=== PATIENT | female | born 1960 | race Caucasian/White ===

== ENCOUNTER 2019-10-02 16:02 | Emergency (ER) | payer OTHER, SELFPAY ==
[2019-10-02 16:14] VITALS: BP 103/70; PULSE 89; RESP 16; TEMP 36.6; O2SAT 98
--- NOTE | 2019-10-02 16:29 | ED.GENADULT ---
HPI - General Adult General Chief complaint: Upper Respiratory Infection Stated complaint: Right Ear Pain Time Seen by Provider: 10/02/19 16:29 Source: patient and RN notes reviewed Mode of arrival: ambulatory Limitations: no limitations History of Present Illness HPI narrative: 59-year-old presents with upper respiratory infection, rhinorrhea, some facial congestion, facial pressure, and RT ear pain for the past 3 days. He did pack, sweet oil, old eardrops, peroxide, Tylenol (last on 10/01/19/ @17:00), and Mucinex (last this morning at 08:00) without relief. No facial swelling. Dry cough and intermittent productive cough (green-yellow phlegm). Nasal congestion and rhinorrhea. Denies sore throat. No high fevers, drooling, neck or throat swelling. No voice change. Intermittent vomiting episodes with coughing during eating and bringing up thick yellow mucus. No nausea or abdominal pain. Tolerating liquids well. Denies chills, dyspnea, difficulty swallowing, jaw pain, dental pain, foreign body sensation, and rash. Denies swimming or getting water into ear. Denies ear trauma or nasal drainage. Denies trouble hearing. Denies tinnitus or dizziness. LMP Hysterectomy 2000. The patient reports she have not been diagnosed with COVID-19. 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 The patient reports she is not waiting for the results of a COVID-19 lab test. The patient reports she do not have fever, chills, weakness, fatigue, myalgia, or facial swelling. The patient reports she has new cough. Denies shortness of breath or chest pain. The patient reports she do not have any sore throat, nausea, vomiting, abdominal pain, and diarrhea. Tolerating po intake well. Denies recent traveling. Denies concerns for COVID-19 or exposures been home with limited outdoor exposure except for essential household needs, work, and return home. At this time, patient is not suspected of having COVID-19. Some parts of this dictation were generated by voice recognition software and may contain typographical and/or grammatical inaccuracies. Related Data Home Medications Medication Instructions Recorded Confirmed bupropion HCl [Wellbutrin XL] 150 mg PO QAM 10/02/19 10/02/19 bupropion HCl [Wellbutrin XL] 300 mg PO QAM 10/02/19 10/02/19 escitalopram oxalate [Lexapro] 20 mg PO DAILY 10/02/19 10/02/19 lamotrigine [Lamictal XR] 100 mg PO DAILY 10/02/19 10/02/19 lamotrigine [Lamictal XR] 300 mg PO DAILY 10/02/19 10/02/19 Allergies Allergy/AdvReac Type Severity Reaction Status Date / Time No Known Allergies Allergy Unknown Verified 10/02/19 16:25 Review of Systems Review of Systems: Narrative: CONSTITUTIONAL: Denies fever, chills, sweats. EYES: Denies visual changes, redness, discharge. ENT: Complains of rhinorrhea, congestion, facial congestion and pressure, RT otalgia. Denies sore throat. CARDIOVASCULAR: Denies chest pain, palpitations, edema. RESPIRATORY: Denies dyspnea, wheezing. Complains of dry cough/intermittent productive cough. GASTROINTESTINAL: Denies abdominal pain, nausea, vomiting, diarrhea. GENITOURINARY: Denies dysuria, hematuria, abnormal discharge. SKIN: Denies rash or itching. MUSCULOSKELETAL: Denies acute back pain, joint pain, or myalgia. NEUROLOGIC: Denies numbness, or focal weakness. PSYCHIATRIC: Denies anxiety or depression. All other systems reviewed & are unremarkable except as noted in HPI and below. [facility] Past Medical History Medical History (Updated 10/02/19 @ 17:11 by JUDY Auguste) Ankle fracture, right Bipolar disorder Surgical History Surgical History (Updated 10/02/19 @ 17:15 by JUDY Auguste) History of adenoidectomy History of ankle surgery RT ankle History of cholecystectomy History of tonsillectomy Social History Social History (Updated 10/02/19 @ 17:17 by JUDY Auguste) Smoking status: Never smoker Occupation/Education: occupation Gender identity (
== END 2019-10-02 16:50 | disposition home or self-care (01) ==
PROVIDERS: Emergency Provider Nurse Practitioner Family; PCP Internal Medicine
DX: H65.192 Other acute nonsuppurative otitis media, left ear (principal); J01.00 Acute maxillary sinusitis, unspecified
CPT/HCPCS: 99213; G0463

== ENCOUNTER 2019-11-04 12:30 | Emergency (ER) | payer OTHER, SELFPAY ==
[2019-11-04 12:36] VITALS: BP 111/73; PULSE 81; RESP 14; TEMP 36.3; O2SAT 97
--- NOTE | 2019-11-04 12:39 | ED.EAR ---
HPI - Ear Problem General Chief complaint: Ear Stated complaint: right ear pain/pressure Time Seen by Provider: 11/04/19 12:39 Source: patient and RN notes reviewed History of Present Illness HPI Narrative: Patient is a 59-year-old female who presents the urgent care with complaints of right ear pain and pressure. Patient states that it feels full . States is been ongoing for approximately 1 month. Patient was seen at the facility 1 month ago and was placed on steroids, Flonase and Claritin and also was tested for COVID at that time. Patient's COVID test was negative. Patient states that the symptoms are still there and now the pain is radiating down the right side of her neck. Patient is also incorporated Tylenol and Mucinex without any relief. Denies of any other upper respiratory symptoms. Denies of any fever. No other acute complaints. No acute distress noted. Patient read the plan of care. Related Data Home Medications Medication Instructions Recorded Confirmed bupropion HCl [Wellbutrin XL] 150 mg PO QAM 10/02/19 10/02/19 bupropion HCl [Wellbutrin XL] 300 mg PO QAM 10/02/19 10/02/19 escitalopram oxalate [Lexapro] 20 mg PO DAILY 10/02/19 10/02/19 lamotrigine [Lamictal XR] 100 mg PO DAILY 10/02/19 10/02/19 lamotrigine [Lamictal XR] 300 mg PO DAILY 10/02/19 10/02/19 Allergies Allergy/AdvReac Type Severity Reaction Status Date / Time No Known Allergies Allergy Unknown Verified 11/04/19 12:44 Review of Systems Review of Systems: Narrative: CONSTITUTIONAL: Denies fever, chills, or sweats. EYES: Denies visual changes, redness, or discharge. ENT: Reports of right otalgia CARDIOVASCULAR: Denies chest pain, palpitations, or edema. RESPIRATORY: Denies cough or dyspnea. GASTROINTESTINAL: Denies abdominal pain, nausea, vomiting, or diarrhea. GENITOURINARY: Denies dysuria or hematuria. SKIN: Denies rash or itching. MUSCULOSKELETAL: Denies back pain, joint pain, or myalgia. NEUROLOGIC: Denies headache, numbness, or weakness. All other systems reviewed are negative, except as documented in HPI. [facility], [facility] Past Medical History Medical History (Updated 11/04/19 @ 12:49 by JUDY Sargent) Ankle fracture, right Bipolar disorder Surgical History Surgical History (Updated 10/02/19 @ 17:15 by JUDY Auguste) History of adenoidectomy History of ankle surgery RT ankle History of cholecystectomy History of tonsillectomy Social History Social History (Updated 10/02/19 @ 17:17 by JUDY Auguste) Smoking status: Never smoker Gender identity (if verbalized by the patient): Female Comments At the time of my signature, I reviewed and agree with the nursing past medical, surgical, social, and family history. There is no relevant family history pertinent to the patient complaint. Exam Narrative: Exam Narrative: GENERAL: This is a well-nourished, well-developed patient, in no apparent distress. HEAD: normocephalic, atraumatic. EYES: PERRL. Sclera clear/white. Vision is grossly intact. EARS: External ears normal, auditory canals clear and without drainage, TMs normal without perforation. Hearing grossly intact. NOSE: External nose normal with no obvious nasal discharge, nares without redness, no rhinorrhea. THROAT: Mucous membranes moist NECK: Neck supple SKIN: warm, intact with no suspicious lesions or rash, good texture and turgor. NEURO: awake, alert, and oriented to person, place and time. There were no obvious focal neurologic abnormalities. EXTREMITIES: No clubbing, cyanosis, or edema. Course Vital Signs Vital signs: Vital Signs Temperature 97.4 F L 11/04/19 12:36 Pulse Rate 81 11/04/19 12:36 Respiratory Rate 14 11/04/19 12:36 Blood Pressure 111/73 11/04/19 12:36 Pulse Oximetry 97 11/04/19 12:36 Temperature 97.4 F L 11/04/19 12:36 Pulse Rate 81 11/04/19 12:36 Respiratory Rate 14 11/04/19 12:36 Blood Pressure 111/73 11/04/19 12:36 Pulse Oximetry 97
== END 2019-11-04 12:57 | disposition home or self-care (01) ==
PROVIDERS: Emergency Provider Nurse Practitioner Family; PCP Internal Medicine
DX: H92.01 Otalgia, right ear (principal); F31.9 Bipolar disorder, unspecified
CPT/HCPCS: 99211; G0463

== ENCOUNTER 2020-04-03 07:31 | Outpatient (CLI) | payer OTHER, SELFPAY ==
--- NOTE | ~2020-04-03 | MM_ITS ---
EXAMINATION: MM screening jeanine BI w lisa HISTORY: Screening mammogram TECHNIQUE: Craniocaudal and mediolateral oblique 3-D tomosynthesis images were obtained and synthetic 2-D images were generated. CAD analysis was submitted and interpreted. COMPARISON: No prior mammogram is available for comparison at this institution. BREAST PARENCHYMAL COMPOSITION: There are scattered areas of fibroglandular density. FINDINGS: Benign-appearing intramammary lymph nodes are noted in the upper outer quadrant of the left breast. There is no evidence of suspicious mass, calcification, or architectural distortion to sugge st malignancy in either breast. IMPRESSION: 1. No mammographic evidence of malignancy. 2. Recommend routine screening mammography in one year. BI-RADS Category 2: Benign finding(s). Reviewed, dictated and finalized at location A. TER MECHANIC
== END 2020-04-03 07:32 | disposition home or self-care (01) ==
LOC: ANHIMG 07:35
PROVIDERS: PCP Internal Medicine; Visit Provider Internal Medicine
DX: Z12.31 Encounter for screening mammogram for malignant neoplasm of breast (principal)
CPT/HCPCS: 77063; 77067

== ENCOUNTER 2020-04-27 08:24 | Outpatient (CLI) | payer OTHER, SELFPAY ==
--- NOTE | ~2020-04-27 | XR_ITS ---
EXAMINATION: XR barium swallow modified EXAM DATE: 04/27/2020 09:08 INDICATION: Dysphagia. TECHNIQUE: Modified barium esophagram was performed by myself to administered fluoroscopy, in conjun ction with speech pathologist who administered barium in varying consistencies as per speech patholog ist documentation. This was recorded on tape. The DAP for this procedure was 0.7 Gycm2. FINDINGS: Oral stage: Adequate function. Pharyngeal phase: Adequate function. Laryngeal penetration: Trace, uncontrolled thin liquids, ejected. Aspiration: None. Laryngeal sensitivity: Present. IMPRESSION: Patient tolerated oral feedings in the upright position. Please refer to speech patholo gist findings and specific feeding recommendations. Reviewed, dictated and finalized at location A. ER LEVELER IMPRESSION: Patient tolerated oral feedings in the upright position. Please r efer to speech pathologist findings and specific feeding recommendations.
--- NOTE | 2020-04-27 09:22 | STOPEVAL ---
MODIFIED BARIUM SWALLOW EVALUATION: Thank you for referring Cynthia Lund to [facility].? T Attending Provider: Candida Balderrama Therapy Assessment Status Assessment Status Assessment Status Evaluation Outpatient Past Medical History Past Medical History Source of Past Medical History Patient Respiratory History Hx Chronic Obstructive Pulmonary Disease Yes (COPD) Hx Emphysema Yes Gastrointestinal History Hx Cholecystectomy Yes Musculoskeletal History Hx Fractures Yes: RT ANKLE Hx Orthopedic Surgery Yes: RT ROTATOR CUFF, FX RT ANKLE WITH PINS Hx Spinal Surgery Yes: CERVICAL FUSION HEENT History Hx Tonsillectomy Yes: ADENOIDECTOMY Reproductive History Hx Hysterectomy Yes Psychosocial History Hx Bipolar Disorder Yes Prior Level of Function Prior Swallow Level Prior Intake Method Oral Prior Diet Regular (Level 7 Diet) Prior Liquid Consistency Thin (Level 0 Diet) Pain Assessment Timing of Pain Assessment Timing of Pain Assessment Assessment Self Report Self Report Pain Level 0 Pain Score Pain Score 0: Self Report Modified Barium Swallow Evaluation Recent Swallowing History Reports Dysphagia Yes: foods get caught & I cough History of Dysphagia No Duration of Dysphagia couple of years Other Factors Impacting Dysphagia Head/Neck Surgery History of Pneumonia No Reported Difficult Consistencies Solids Intake Method Prior to Swallow Oral Evaluation Diet Prior to Swallow Evaluation Regular, Level 7 Liquid Consistency Prior to Swallow Thin (0) Evaluation Consistency Solid Consistency Method of Presentation Spoon Oral Preparatory Symptoms None Oral Phase Symptoms None Pharyngeal Phase Symptoms None Severity of Vallecular Residue None - 0% No Residue Severity of Pyriform Sinus Residue None - 0% No Residue 8 Point Laryngeal Penetration-Aspiration Material Does Not Enter Airway Scale Cervical/Esophageal Symptoms None Mixed Consistency Method of Presentation Spoon Oral Preparatory Symptoms None Oral Phase Symptoms None Pharyngeal Phase Symptoms None Severity of Vallecular Residue None - 0% No Residue Severity of Pyriform Sinus Residue None - 0% No Residue 8 Point Laryngeal Penetration-Aspiration Material Does Not Enter Airway Scale Cervical/Esophageal Symptoms None Pureed Consistency Method of Presentation Spoon Oral Preparatory Symptoms None Oral Phase Symptoms None Pharyngeal Phase Symptoms None Severity of Vallecular Residue None - 0% No Residue
== END 2020-04-27 08:25 | disposition home or self-care (01) ==
PROVIDERS: PCP Internal Medicine
DX: R13.10 Dysphagia, unspecified (principal)
CPT/HCPCS: 92611

== ENCOUNTER 2021-10-24 10:29 | Emergency (ER) | payer OTHER, SELFPAY ==
[2021-10-24 10:36] VITALS: BP 123/71; PULSE 83; RESP 14; TEMP 36.4; O2SAT 98
--- NOTE | 2021-10-24 10:55 | ED.EAR ---
HPI - Ear Problem General Chief complaint: Ear Stated complaint: Right Ear Pain Time Seen by Provider: 10/24/21 10:40 Source: patient and RN notes reviewed History of Present Illness HPI Narrative: Patient is a 7-year-old female who presents the urgent care with complaints of right ear pain. Patient states that she has been taking Flonase, using sweet oil, and peroxide in the ear. Patient states that it started on Sunday and she had a bout of dizziness. Patient denies any headaches or nausea. No other acute complaints. No acute distress noted. Patient aware of the plan of care. Some parts of this dictation were generated by voice recognition software and may contain typographical and/or grammatical inaccuracies. Related Data Home Medications Medication Instructions Recorded Confirmed bupropion HCl 150 mg 24 hr tablet, 150 mg PO QAM 10/02/19 10/24/21 extended release (Wellbutrin XL) bupropion HCl 300 mg 24 hr tablet, 300 mg PO QAM 10/02/19 10/24/21 extended release (Wellbutrin XL) escitalopram oxalate 20 mg tablet 20 mg PO DAILY 10/02/19 10/24/21 (Lexapro) lamotrigine 100 mg tablet,extended 100 mg PO DAILY 10/02/19 10/24/21 release 24 hr (Lamictal XR) lamotrigine 300 mg tablet,extended 300 mg PO DAILY 10/02/19 10/24/21 release 24 hr (Lamictal XR) famotidine 20 mg tablet 20 mg PO DAILY 10/24/21 10/24/21 lorazepam 1 mg tablet 1 mg PO TID PRN Anxiety 10/24/21 10/24/21 metoclopramide HCl 10 mg tablet mg 10/24/21 Allergies Allergy/AdvReac Type Severity Reaction Status Date / Time No Known Allergies Allergy Unknown Verified 10/24/21 10:39 Review of Systems Review of Systems: CONSTITUTIONAL: Denies fever, chills, or sweats. EYES: Denies visual changes, redness, or discharge. ENT: Denies rhinorrhea, congestion, sore throat. Reports right otalgia CARDIOVASCULAR: Denies chest pain, palpitations, or edema. RESPIRATORY: Denies cough or dyspnea. GASTROINTESTINAL: Denies abdominal pain, nausea, vomiting, or diarrhea. GENITOURINARY: Denies dysuria or hematuria. SKIN: Denies rash or itching. MUSCULOSKELETAL: Denies back pain, joint pain, or myalgia. NEUROLOGIC: Denies headache, numbness, or weakness. All other systems reviewed are negative, except as documented in HPI. [facility] Past Medical History Medical History (Updated 10/24/21 @ 10:57 by JUDY Sargent) Ankle fracture, right Bipolar disorder Surgical History Surgical History (Updated 10/02/19 @ 17:15 by JUDY Auguste) History of adenoidectomy History of ankle surgery RT ankle History of cholecystectomy History of tonsillectomy Social History Social History (Updated 10/02/19 @ 17:17 by JUDY Auguste) Smoking status: Never smoker Gender identity (if verbalized by the patient): Female Comments At the time of my signature, I reviewed and agree with the nursing past medical, surgical, social, and family history. There is no relevant family history pertinent to the patient complaint. Exam Narrative: GENERAL: This is a well-nourished, well-developed patient, in no apparent distress. HEAD: normocephalic, atraumatic. EYES: PERRL. Sclera clear/white. Vision is grossly intact. EARS: External ears normal, auditory canals clear and without drainage, TMs normal without perforation. Hearing grossly intact. NOSE: External nose normal with no obvious nasal discharge, nares without redness, no rhinorrhea. THROAT: Mucous membranes moist, posterior pharynx clear. Mild postnasal drainage. NECK: Neck supple CARDIOVASCULAR: Regular rate and rhythm without murmurs, gallops, or rubs. GASTROINTESTINAL: Abdomen soft, non-tender, nondistended. Bowel sounds are active. No hepato-splenomegaly, or palpable masses. No guarding. SKIN: warm, intact with no suspicious lesions or rash, good texture and turgor. NEURO: awake, alert, and oriented to person, place and time. There were no obvious focal neurologic abnormalities. EXTREMITIES: No clu
== END 2021-10-24 11:02 | disposition home or self-care (01) ==
PROVIDERS: Emergency Provider Nurse Practitioner Family; PCP Internal Medicine
DX: H92.01 Otalgia, right ear (principal); F31.9 Bipolar disorder, unspecified
CPT/HCPCS: 99211; G0463

== ENCOUNTER 2023-12-26 18:23 | Emergency (ER) | payer OTHER, SELFPAY ==
[2023-12-26 18:35] VITALS: BP 136/93; PULSE 84; RESP 16; TEMP 36.3; O2SAT 97
[2023-12-26 18:43] VITALS: BP 136/93; PULSE 84; RESP 16; TEMP 36.3; O2SAT 97
--- NOTE | 2023-12-26 18:59 | ED_ITS ---
HPI - Ear Problem General Chief complaint: Ear Stated complaint: Right Ear Drainage Time Seen by Provider: 12/26/23 18:50 Source: patient, RN notes reviewed and old records reviewed Mode of arrival: ambulatory Limitations: no limitations History of Present Illness HPI Narrative: 63 year old female who presents to [facility] care with complaints of ear pain pain and white drainage noted from her right ear since Sunday with some decreased hearing. Patient also states some tenderness to her left ear but denies any drainage or changes in hearing. Patient states she has noted some nasal drainage and congestion and some sore throat. Patient has been taking Advil cold and sinus for her symptoms and also some Tylenol for her discomfort. Patient reports no known fevers chills or sweats. MD Complaint: ear pain, ear discharge, decreased hearing and other (nasal congestion and drainage sore throat) Location: bilateral Duration: constant Severity: moderate Discharge from ear: Reports yes - clear Associated symptoms ear: decreased hearing and other (muffled hearing right ear) Related Data Home Medications Medication Instructions Recorded Confirmed bupropion HCl 150 mg 24 hr tablet, 150 mg PO QAM 10/02/19 12/26/23 extended release (Wellbutrin XL) escitalopram oxalate 20 mg tablet 20 mg PO DAILY 10/02/19 12/26/23 (Lexapro) famotidine 20 mg tablet 20 mg PO DAILY 10/24/21 12/26/23 cariprazine 1.5 mg capsule 1.5 mg PO DAILY 12/26/23 12/26/23 (Vraylar) lamotrigine 200 mg tablet 200 mg PO DAILY 12/26/23 12/26/23 pantoprazole 40 mg tablet,delayed 40 mg PO DAILY 12/26/23 12/26/23 release Allergies Allergy/AdvReac Type Severity Reaction Status Date / Time No Known Allergies Allergy Unknown Verified 12/26/23 18:38 Review of Systems Review of Systems: CONSTITUTIONAL: Denies malaise, chills, sweats, or fever. EYES: Denies visual changes, redness, or discharge. ENT: Reports rhinorrhea, congestion, sinus pain, otalgia and sore throat. CARDIOVASCULAR: Denies chest pain, palpitations, or edema. RESPIRATORY: Reports cough.? Denies dyspnea. GASTROINTESTINAL: Denies abdominal pain, nausea, vomiting, diarrhea SKIN: Denies rash or itching. MUSCULOSKELETAL: Denies myalgia. NEUROLOGIC: Denies headache. All systems reviewed & are unremarkable except as noted in HPI and below PMFSH Past Medical History Medical History (Updated 12/26/23 @ 19:12 by Cynthia Johnson NP) Ankle fracture, right Bipolar disorder Surgical History Surgical History (Updated 10/02/19 @ 17:15 by JUDY Auguste) History of adenoidectomy History of ankle surgery RT ankle History of cholecystectomy History of tonsillectomy Social History Social History (Updated 10/02/19 @ 17:17 by JUDY Auguste) Smoking status: Never smoker Occupation/Education: occupation Gender identity (if verbalized by the patient): Female Comments At time of signature, agree with nursing past medical, surgical, social and family history. There is no relevant family history pertinent to the presenting complaint Exam Narrative: GENERAL: Well-appearing, well-nourished, and in no acute distress. HEAD: Normocephalic EYES: PERRLA, conjunctivae clear ENT: Nares clear, turbinates edematous and erythematous, clear discharge. Mucous membranes moist.Right TM red with clear drainage, Left TM pearly omalley with dull light reflex, canal irritated left ear no tragal tenderness. Oropharynx eryth ematous without lesions. Tonsils red not enlarged and without exudate, no drooling, no hoarseness, no trismus, uvula midline.post nasal drainage noted. NECK: Supple. No lymphadenopathy CHEST: Clear to auscultation, breath sounds equal. No wheezing, rhonchi, rales, or stridor. No respiratory distress, speaks in full sentences. HEART: Regular rate and rhythm. No murmur heard. SKIN: Warm, dry, no rash. NEURO: Alert and oriented x3. PSYCH: Normal mood and affect Course Course Emergency Course: Patient is aware of diagnosis, understands and agrees to treatment plan.? Anticipatory guidance given.? Patient agrees to follow-up as directed and is aware of reasons to seek care at the emergency department. Portions of this record may have been created with voice recognition software Level of Care: Express Care Visit Vital Signs Vital signs: Vital Signs Temperature 36.3 C L 12/26/23 18:35 Pulse Rate 84 12/26/23 18:35 Respiratory Rate 16 12/26/23 18:35 Blood Pressure 136/93 H 12/26/23 18:35 Pulse Oximetry 97 12/26/23 18:35 Oxygen Delivery Room Air 12/26/23 18:35 Temperature 36.3 C L 12/26/23 18:43 Pulse Rate 84 12/26/23 18:43 Respiratory Rate 16 12/26/23 18:43 Blood Pressure 136/93 H 12/26/23 18:43 Pulse Oximetry 97 12/26/23 18:43 Oxygen Delivery Room Air 12/26/23 18:43 Reviewed Medical Decision Making Differential Diagnosis Differential Diagnosis: URI, otitis media, otitis externa, pharyngitis, viral infection Medical Records Medical records reviewed: Yes I reviewed the external patient's medical records. Vital Signs Vital Signs: Vital Signs Temperature 36.3 C L 12/26/23 18:35 Pulse Rate 84 12/26/23 18:35 Respiratory Rate 16 12/26/23 18:35 Blood Pressure 136/93 H 12/26/23 18:35 Pulse Oximetry 97 12/26/23 18:35 Oxygen Delivery Room Air 12/26/23 18:35 Temperature 36.3 C L 12/26/23 18:43 Pulse Rate 84 12/26/23 18:43 Respiratory Rate 16 12/26/23 18:43 Blood Pressure 136/93 H 12/26/23 18:43 Pulse Oximetry 97 12/26/23 18:43 Oxygen Delivery Room Air 12/26/23 18:43 reviewed Critical Care Time Critical Care Time Critical Care Time: No Discharge Plan Discharge Clinical Impression: Sinus congestion Otitis media Qualifiers: Otitis media type: suppurative Chronicity: acute Laterality: right Recurrence: non-recurrent Spontaneous tympanic membrane rupture: without spontaneous rupture Qualified Code(s): H66.001 - Acute suppurative otitis media without spontaneous rupture of ear drum, right ear Otitis externa Qualifiers: Otitis externa type: unspecified type Chronicity: acute Laterality: left Qualified Code(s): H60.502 - Unspecified acute noninfective otitis externa, left ear Patient Disposition: Home, Self-Care Condition: Stable Instructions: Antibiotic Form, Ear Infection (ED) Additional Instructions: Increase fluids especially juices and water [id number] cough and cold medicine of your choice for your symptoms Zyrtec, Claritin or Leia daily use Coricidin brand decongestant. Tylenol or Ibuprofen for any fever or pain ear drops as prescribed heat to the face 20-30 minutes 4-6 times a day for pain Salt water gargles, throat lozenges or throat sprays as desired Antibiotic as directed--finished the medication If your symptoms persist, change or worsen significantly before you can contact your personal physician then please, without delay, go to the emergency department for further evaluation. Follow-up with PCP in 7-10 days or sooner if needed Follow up with PCP soon in regards to your blood pressure which is elevated above threshold for referral. Blood pressure above 120/80 may indicate pre- hypertension.136/93 Prescriptions: New ofloxacin 0.3 % drops 5 drp EACH EAR BID 7 Days Qty: 10 0RF amoxicillin 875 mg tablet 875 mg PO Q12H Qty: 20 0RF No Action escitalopram oxalate [Lexapro] 20 mg Tablet 20 mg PO DAILY bupropion HCl [Wellbutrin XL] 150 mg Tablet Extended Release 24 Hr 150 mg PO QAM Vraylar 1.5 mg capsule 1.5 mg PO DAILY lamotrigine 200 mg tablet 200 mg PO DAILY pantoprazole 40 mg tablet,delayed release (DR/EC) 40 mg PO DAILY famotidine 20 mg tablet 20 mg PO DAILY Follow-up/Referrals: Roman,MD Kane [Primary Care Provider] - Time of Disposition: 19:04 Quality Linda Coma Scale Eyes: Open Verbal: Oriented and Alert Motor: Follows Commands [place] Coma Total Score: 15
== END 2023-12-26 19:13 | disposition home or self-care (01) ==
PROVIDERS: Emergency Provider Registered Nurse; PCP Internal Medicine
DX: H66.001 Acute suppurative otitis media without spontaneous rupture of ear drum, right ear (principal); H60.502 Unspecified acute noninfective otitis externa, left ear; J34.89 Other specified disorders of nose and nasal sinuses; F31.9 Bipolar disorder, unspecified
CPT/HCPCS: 99213; G0463

== ENCOUNTER 2024-06-19 18:59 | Emergency (ER) | payer OTHER, SELFPAY ==
--- OUTSIDE RECORDS SUMMARY | 2024-06-19 19:01 | XMS_ITS | Clinical Summary ---
Author Organization [employer] [id number] [facility] Address [address] [place] [address] Care Team Providers Care Endless Track Vehicle Supervisor Name Role Phone Kane Owens MD Primary Care Provider [phone] Medications brexpiprazole (REXULTI) 2 mg Tablet Take 2 mg by mouth daily. Active buPROPion HCl (WELLBUTRIN XL) 150 mg Extended Release 24 hour tablet Take 150 mg by mouth 3 times daily. Active meloxicam (MOBIC ORAL) Take 10 mg by mouth daily. Active lamoTRIgine (LaMICtal) 200 mg tablet Take 400 mg by mouth daily. Active LORazepam (ATIVAN) 1 mg tablet Take 1 mg by mouth 3 times daily. Active gabapentin (NEURONTIN) 100 mg capsule Take 100 mg by mouth daily. Active Active Problems Problem Noted Date Diagnosed Date Cervical spondylosis with radiculopathy 06/12/19 19 Family History Medical History Relation Name Comments No Known Problems Brother x 2 Other Father COPD Other Mother non hodgkins ly mphoma No Known Problems Sister x 2 Relation Name Status Comments Brother x 2 Alive Father Alive Mother Alive Sister x 2 Alive Social History Tobacco Use Types Packs/Day Years Used Date Smoking Tobacco: Never Alcohol Use Standard Drinks/Week Comments Yes 0 (1 standard drink = 0.6 oz pur e alcohol) rare Comments Unknown Sex and Gender Information Value Date Recorded Sex Assigned at Not on file Legal Sex Female 12:32 PM CDT Gender Identity Not on file Sexual Orientation Not on file 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 Not on file Not on file Last Filed Vital Signs Vital Sign Reading Time Taken Comments Blood Pressure 114/81 06/12/2018 8:06 AM CDT Pulse - - Temperature - - Respiratory Rate - - Oxygen Saturation - - Inhaled Oxygen Concentration - - Weight 69.4 kg (153 lb) 07/10/2018 1:25 PM CDT Height 157.5 cm (5' 2 ) 07/10/2018 1:25 PM CDT Body Mass Index 27.98 07/10/2018 1:25 PM CDT Plan of Treatment Health Maintenance Due Date Last Done Comments DTAP/TDAP/TD VACCINES (1 - Tdap) 1980 HPV/Cotest (21-29) 1982 CERVICAL CANCER SCREENING 07/14/1991 HPV/Cotest (30-65) 07/14/1991 PAP SMEAR 07/14/1991 BREAST CANCER SCREENING 2001 COLORECTAL SCREENING 2006 Colorectal Cancer Screening 2006 FIT-DNA Q 3 years 2006 FIT/FOBT Q 1 year 2006 Flex Sig/CT Colonography Q 5 years 2006 ZOSTER VACCINE (1 of 2) 07/14/2011 INFLUENZA VACCINE (#1) 2023 RSV VACCINE (60+ or ) (1 - 1-dose 75+ series) 2036 Insurance [facility] [address] [place], [place] [id number] [place] [address] Care Teams Endless Track Vehicle Supervisor Relationship Specialty Start Date End Date Kane Owens MD [address] [place] [id number] PCP - General Internal Medicine 05/29/18
--- OUTSIDE RECORDS SUMMARY | 2024-06-19 19:01 | XMS_ITS ---
Author Organization [facility] [employer] Address [address] [place] [address] Care Team Providers Care Operator Catalyst Concentration Name Role Phone Kane Owens MD Primary Care Provider Remigio Gabriel Unavailable [phone] REASON FOR VISIT follow-up Medications Medication SIG (Take, Route, Frequency, Duration) Notes Start Date End Date Status Pantoprazole Sodium 40 MG Oral 06/20/2023 Active Famotidine 20 MG Oral 06/20/2023 Ac tive Vitamin B-12 1000 MCG Oral 06/20/2023 Active lamoTRIgine 200 MG 2 tablets Oral Once a day for 90 days Active lamoTRIgine 200 MG 2 tablets Oral Once a day for 90 days Active buPROPion HCl ER (XL) 300 MG 1 tablet in the morning Oral Once a day for 90 days Active LORazepam 1 MG Oral PRN 06/20/2023 Acti ve Polyethylene Glycol 3350 Oral 06/20/2023 Active VITAMIN D3 50 MCG (2,000 UNIT) TABLET *Reorder from [employer] for eRx and Interaction Alerts* 06/20/2023 Active Escitalopram Oxalate 20 MG 1 tablet Oral Once a day for 90 days Active Vraylar 1.5 mg 1 capsule Oral Once a day for 90 days Active Social History Sex Assigned At : Social History Observation Description Sex Assigned At Female Vital Signs Blood pressure systolic 103 mm Hg 06/06/19 25 Blood pressure diastolic 72 mm Hg 025 Heart Rate 87 /min 06/05/2024 Height 63.00 in 06/05/2024 Weight 161 lbs 06/05/2024 BMI 28.52 kg/m2 06/05/2024 Height-cm 160.02 cm 06/05/2024 Weight-kg 73.03 kg 06/05/2024 Encounters Encounter Location Date [place] [facility] [place] [address] [place] [address] 06/05/2024 Remigio Romero Encounter for screen ing for cardiovascular disorders Z13.6 ; Encounter for screening for depression Z13.31 ; Bipolar disorder, current episode mixed, unspecified F31.60 ; Generalized anxiety disorder F41.1 and Insomnia due to other mental disorder F51.05 Assessments Encounter Date Diagnosis (ICD Code) Assessment Notes Treatment Notes Treatment Clinical Notes Section Notes 06/05/2024 Encounter for screening for cardiovascular disorders (ICD-10 - Z13.6) 06/05/2024 Encounter for screening for depression (ICD-10 - Z13.31) 06/05/2024 Bipolar disorder, current episode mixed, unspecified (ICD-10 - F31.60) 06/05/2024 Generalized anxiety disorder (ICD-10 - F41.1) Continue Lorazepam 0.5 PRN 06/05/2024 Insomnia due to other mental disorder (ICD-10 - F51.05) stable Plan Of Treatment Medication Medication Name Sig Start Date Stop Date Notes lamoTRIgine 200 MG 2 tablets Oral Once a day for 90 days buPROPion HCl ER (XL) 300 MG 1 tablet in the morning Oral Once a day for 90 days LORazepam 1 MG Oral 06/20/2023 PRN Escitalopram Oxalate 20 MG 1 tablet Oral Once a day for 90 days Vraylar 1.5 mg 1 capsule Oral Once a day for 90 days Treatment Notes Assessment Notes Generalized anxiety disorder Continue Lo razepam 0.5 PRN Insomnia due to other mental disorder st able Next Appt Details Follow Up: 4 Months, Reason: f/u bipolar d/o Provider Name:Remigio lanza, 10/06/2024 02:45:00 PM, [address], [address], [place], [address], Progress Notes * BELLE RAMOS:1960 ( 63 yo F)Acc No.[id number]:06/05/2024 Patient: CHLOE QUINONEZ Provider: DAVID XIAO :1960 A ge:63 Y S ex:Female Date:06/05/2024 Address:[address] [place] [address] , [address], [facility] Pcp:Kane Owens MD Subjective: * Chief Complaints: * 1 . Follow-up. * HPI: H istory of Presenting Problem: BP normalDepression screening negative. Depression b ipolar d/o, Onset: years ago. Sleep disturbance s leeping well. D epression screening: PHQ-9 L ittle interest or pleasure in doing things?Not at all F eeling down, depressed, or hopeless N ot at all T rouble falling or staying asleep, or sleeping too much N ot at all F eeling tired or having little energy N ot at all P oor appetite or overeating N ot at all F eeling bad about yourself or that you are a failure, or have let yourself or your family down N ot at all T rouble concentrating on things, such as reading the newspaper or watching television N ot at all M oving or speaking so slowly that other people could have noticed; or the opposite, being so fidgety or restless that you have been moving around a lot more than usual N ot at all T houghts that you would be better off or of hurting yourself in some way N ot at all T otal Score 0 Intervention D epression Screening Findings N egative S uicide Risk Assessment Performed 0 06/05/2024 * ROS: P erformance Met: N ormal blood pressure reading documented, follow-up not required ( G8783). * Medical History: * Social History: M igrated Social History: M igrated Social History: Alcohol Intake: Occasional 09/02/2020,Tobacco Years: Never smoker 09/02/2020. * Medications: T aking Polyethylene Glycol 3350 Powder Oral , Taking VITAMIN D3 50 MCG (2,000 UNIT) TABLET , Notes to Pharmacist: *Reorder from [employer] for eRx and Interaction Alerts*, Taking Famotidine 20 MG Tablet Oral , Taking Pantoprazole Sodium 40 MG Tablet Delayed Release Oral , Taking Vitamin B-12 1000 MCG Tablet Oral , Taking Vraylar 1.5 mg Capsule 1 capsule Oral Once a day , Taking Escitalopram Oxalate 20 MG Tablet 1 tablet Oral Once a day , Taking buPROPion HCl ER (XL) 300 MG Tablet Extended Release 24 Hour 1 tablet in the morning Oral Once a day , Taking lamoTRIgine 200 MG Tablet 2 tablets Oral Once a day , Discontinued LORazepam 1 MG Tablet Oral , Notes to Pharmacist: PRN, Medication List reviewed and reconciled with the patient Objective: * Vitals: B P:103/72mm Hg, HR:87/min, Wt:161lbs, Wt-k.03 kg, Ht: 63.00 in, Ht-cm: 160.02 cm, BMI:28.52Index, Body Surface Area: 1.8. * Examination: P sychiatry: Appearance: w ell-groomed, well-nourished, .... Abnormal body movements: n one. Affect / mood: a ppropriate, full range. Attention: g ood. Attitude: c ooperative. Suicidal ideation: n one. Memory status: n o impairment noted. Degree of awareness of surroundings: w ithin normal limits.? Delusions: n o. Hallucinations: n o. Insight: g ood. Intellectual functioning: n o impairment noted. Judgement: g ood. Orientation: a wake, alert and oriented x 3. Perceptual disorders: n o perceptual disorder noted. Psychomotor activity: w ithin normal range. Speech / language: a ppropriate pitch/modulation, clear and coherent, normal rate, volume, and articulation (RVR), proper grammar used. Thought content: a ppropriate. Thought process: i ntact. Assessment: * Assessment: 1. B ipolar disorder, current episode mixed, unspecified - F31.60 (Primary) 2 .?Encounter for screening for cardiovascular disorders - Z13.6 3 . E ncounter for screening for depression - Z13.31 4 . G eneralized anxiety disorder - F41.1 5 . I nsomnia due to other mental disorder - F51.05 Plan: * Treatment: 2. G eneralized anxiety disorder Refill Escitalopram Oxalate Tablet, 20 MG, 1 tablet, Oral, Once a day, 90 days, 90 Tablet, Refills 1; C ontinue LORazepam Tablet, 1 MG, Oral, Notes to Pharmacist: PRN. Notes: Continue Lorazepam 0.5 PRN 3. I nsomnia due to other mental disorder Notes: stable * Procedure Codes: G 8783 NORMAL BP READING DOC F/U NOT RQR, 33535 BEHAV ASSMT W/SCORE & DOCD/STAND INSTRUMENT, G8752 MOST RECENT SYSTOLIC BP < 140MM HG, G8754 MOST RECENT DIASTOLIC BP < 90MM HG * Follow Up: 4 Months (Reason: f/u bipolar d/o) * Billing Information: * Visit Code: 42934 OFFICE OUTPATIENT VISIT 25 MINUTES DETAILED HISTORY AND EXAM/MODERATE MEDICAL DECISION MAKING. * Procedure Codes: G8783 NORMAL BP READING DOC F/U NOT RQR. 75225 BEHAV ASSMT W/SCORE & DOCD/STAND INSTRUMENT. G8752 MOST RECENT SYSTOLIC BP < 140MM HG. G8754 MOST RECENT DIASTOLIC BP < 90MM HG. * Electronic signature of DAVID Davis on 06/19/2024 at 07:01 PM CDT Sign off status: Pending * Provider: DAVID XIAO Date: 0 06/05/2024 Generated for Kamini logan/Trent/Shani on: 0 06/19/2024 07:01 PM CDT History and Physical Notes * HPI (History of Present Illness) Category Sub-Category Detail Notes Category Not es History of Presenting Problem Depression bipolar d/o, Onset: years ago Sleep disturbance sleeping well Depression screening PHQ-9 Little inte rest or pleasure in doing things: Not at all Feeling down, depressed, or hopeless: No t at all Trouble falling or staying asleep, or sl eeping too much: Not at all Feeling tired or having little energy: N ot at all Poor appetite or overeating: Not at all Feeling bad about yourself o r that you are a failure, or have let yourself or your family down: Not at all Trouble concentrating on thi ngs, such as reading the newspaper or watching television: Not at all Moving or speaking so slowly that other people could have noticed; or the opposite, being so fidgety or restless that you have been moving around a lot more than usual: Not at all Thoughts that you would be b chandler off or of hurting yourself in some way: Not at all Total Score: 0 Intervention Depression Screening Findings: N egative Suicide Risk Assessment Performed: 06/05 Examination Category Sub-Category Detail Notes Category Not es Psychiatry Appearance: well-groomed, well-nourished , ... Attitude: cooperative Psychomotor activity: within normal rang e Abnormal body movements: none Attention: good Degree of awareness of surroundings: wit hin normal limits Orientation: awake, alert and meaghan ented x 3 Affect / mood: appropriate, full ra nge Speech / language: appropriate pitch/mo dulation, clear and coherent, normal rate, volume, and articulation (RVR), proper grammar used Insight: good Judgement: good Thought process: intact Thought content: appropriate Perceptual disorders: no perceptual diso rder noted Suicidal ideation: none Intellectual functioning: no impairment noted Memory status: no impairment noted Delusions: no Hallucinations: no
--- OUTSIDE RECORDS SUMMARY | 2024-06-19 19:01 | XMS_ITS | Continuity of Care Document ---
Author Organization [facility] Address [address] [place] [address] Insurance Providers Payer Plan Claims Address Claims Phone Policy Number Group Number Relation Employer Guarantor Name Guarantor Guarantor Address Guarantor Phone [employer]uman [address], [place] [address] [id number] Self Cynthia RAMOS 1960 [address] [facility] [address], [place] [address] Problems Unknown Problems Results No Results Allergies, adverse reactions, alerts No known allergies and adverse reactions Medications No administered medications reported Vital Signs Date Vital Result Comment 08/20/2023 Body Height [id number] m Body Weight 81.696914691920 kg Body Mass Index 34.01 kg/m2 Social History No smoking Hx information available
--- OUTSIDE RECORDS SUMMARY | 2024-06-19 19:01 | XMS_ITS | Data Portability ---
Author Organization [place] - [employer], Main Office Address [address] [place] [address] Assessment Encounter Date Assessment Date Assessment LastModified by Organization Details LastModified Time 10/05/2022 10/05/2022 Blood work G LP 1 for obesity Follow-up in 4 weeks or 4 months depending upon she whether she gets to GLP 1 Regular exercise [id number] Not available 12/24/2022 17:25:06 Plan of Treatment Reminders Order Date Submit Date Provider Last Modified By Organization Details Last Modified Time Details Appointments None recorded. Lab TSH, serum or plasma 2022 023 JOSE Not available 3 19:53:55 T3, free, serum or plasma 2022 023 JOSE Not available 3 19:30:36 T4, free, serum 2022 023 JOSE Not available 3 19:30:30 HbA1c (hemoglobin A1c), blood 2022 023 cyahl Not available 3 09:34:09 CBC w/ auto diff 2022 023 JOSE Not available 3 18:11:22 CMP, serum or plasma 2022 023 JOSE Not available 3 19:16:09 lipid panel, serum 2022 023 JOSE Not available 3 19:16:12 Referral None recorded. Procedures None recorded. Surgeries None recorded. Imaging None recorded. Medication Orders Wegovy 0.25 mg/0.5 mL subcutaneou s pen injector 2022 023 [id number], [address], [place], [place], [id number], 16:54:25 Patient TargetsNo targets recorded. Patient InstructionsNo instructions recorded. Reason for Referral None Reported. Results Created Date Observation Date Name Description Value Unit Range Abnormal Flag Note LastModifiedBy Organization Detail LastModifiedTime 10/06/1910/05/2022 CBC/C OMPLE TE BLD COUNT W/DIF F white blood cells 5.3 x10'3 /uL 4.2-10 .8 Not Available [facility] (Lab) [address] [place], [address], 10/05/2022 18:11:22 10/06/1910/05/2022 CBC/C OMPLE TE BLD COUNT W/DIF F red blood cells 4.45 x10'6 /uL 3.80-5 .20 Not Available [facility] (Lab) [address] [place], [address], 10/05/2022 18:11:22 10/06/1910/05/2022 CBC/C OMPLE TE BLD COUNT W/DIF F hemoglobin 13.0 g/dL 12.0-1 5.6 Not Available [facility] (Lab) [address] [place], [address], 10/05/2022 18:11:22 10/06/1910/05/2022 CBC/C OMPLE TE BLD COUNT W/DIF F hematocrit 38.8 % 35.7-4 5.7 Not Available [facility] (Lab) [address] [place], [address], 10/05/2022 18:11:22 10/06/19 23 10/05/2022 CBC/C OMPLE TE BLD COUNT W/DIF F mean red cell volume 87.2 fL 82.0-9 9.0 Not Available [facility] (Lab) [address] [place], [address], 10/05/2022 18:11:22 10/06/19 23 10/05/2022 CBC/C OMPLE TE BLD COUNT W/DIF F mean red cell hemoglobin 29.2 pg 27.0-3 3.0 Not Available [facility] (Lab) [address] [place], [address], 10/05/2022 18:11:22 10/06/19 23 10/05/2022 CBC/C OMPLE TE BLD COUNT W/DIF F mean RBC HGB concentratio n 33.5 g/dL 31.0-3 6.0 Not Available [facility] (Lab) [address] [facility] [place], [address], 10/05/2022 18:11:22 10/06/19 23 10/05/2022 CBC/C OMPLE TE BLD COUNT W/DIF F red cell distribution width 11.7 % 11.8-1 5.5 low Not Available [facility] (Lab) [address] [place], [address], 10/05/2022 18:11:22 10/06/19 23 10/05/2022 CBC/C OMPLE TE BLD COUNT W/DIF F platelets 331 x10'3 /uL 150-40 0 Not Available [facility] (Lab) [address] [place], [address], 10/05/2022 18:11:22 10/06/19 23 10/05/2022 CBC/C OMPLE TE BLD COUNT W/DIF F mean platelet volume 9.3 fL 9.0-12 .4 Not Available [facility] (Lab) [address] [place], [address], 10/05/2022 18:11:22 10/06/19 23 10/05/2022 CBC/C OMPLE TE BLD COUNT W/DIF F neutrophils 52.4 % 39.0-7 2.0 Not Available [facility] (Lab) [address] [place], [address], 10/05/2022 18:11:22 10/06/19 23 10/05/2022 CBC/C OMPLE TE BLD COUNT W/DIF F lymphocytes 37.2 % 16.0-4 7.0 Not Available [facility] (Lab) [address] [place], [address], 10/05/2022 18:11:22 10/06/19 23 10/05/2022 CBC/C OMPLE TE BLD COUNT W/DIF F monocytes 7.2 % 5.0-12 .0 Not Available [facility] (Lab) [address] [place], [address], 10/05/2022 18:11:22 10/06/19 23 10/05/2022 CBC/C OMPLE TE BLD COUNT W/DIF F eosinophils 1.7 % 1.0-7. 0 Not Available [facility] (Lab) [address] [place], [address], 10/05/2022 18:11:22 10/06/19 23 10/05/2022 CBC/C OMPLE TE BLD COUNT W/DIF F basophils 0.9 % 0.0-2. 0 Not Available [facility] (Lab) [address] [place], [address], 10/05/2022 18:11:22 10/06/19 23 10/05/2022 CBC/C OMPLE TE BLD COUNT W/DIF F immature granulocytes 0.6 % 0.00-0 .50 high Not Available [facility] (Lab) [address] [place], [address], 10/05/2022 18:11:22 10/06/19 23 10/05/2022 CBC/C OMPLE TE BLD COUNT W/DIF F neutrophils, absolute count 2.77 x10'3 /uL 1.5-8. 0 Not Available [facility] (Lab) [address] [place], [address], 10/05/2022 18:11:22 10/06/19 23 10/05/2022 CBC/C OMPLE TE BLD COUNT W/DIF F lymphocytes, absolute count 1.97 x10'3 /uL 1.07-3 .43 Not Available [facility] (Lab) [address] [place], [address], 10/05/2022 18:11:22 10/06/19 23 10/05/2022 CBC/C OMPLE TE BLD COUNT W/DIF F monocytes, absolute count 0.38 x10'3 /uL 0.29-0 .99 Not Available [facility] (Lab) [address] [place], [address], 10/05/2022 18:11:22 10/06/19 23 10/05/2022 CBC/C OMPLE TE BLD COUNT W/DIF F eosinophils, absolute count 0.09 x10'3 /uL 0.02-0 .53 Not Available [facility] (Lab) [address] [place], [address], 10/05/2022 18:11:22 10/06/19 23 10/05/2022 CBC/C OMPLE TE BLD COUNT W/DIF F basophils, absolute count 0.05 x10'3 /uL 0.01-0 .08 Not Available [facility] (Lab) [address] [place], [address], 10/05/2022 18:11:22 10/06/19 23 10/05/2022 CBC/C OMPLE TE BLD COUNT W/DIF F immature granulocytes ,absolute 0.03 x10'3 /uL 0.00-0 .05 Not Available [facility] (Lab) [address] [place], [address], 10/05/2022 18:11:22 10/06/19 23 10/05/2022 CBC/C OMPLE TE BLD COUNT W/DIF F nucleated red blood cells 0.0 % -0 Not Available [facility] (Lab) [address] [place], [address], 10/05/2022 18:11:22 10/06/19 23 10/05/2022 CBC/C OMPLE TE BLD COUNT W/DIF F NRBC# 0.00 x10'3 /uL Not Available [facility] (Lab) [address] [place], [address], 10/05/2022 18:11:22 10/06/19 23 10/05/2022 COMPR EHENS SOLO METAB OLIC PANEL sodium 137 mmol/ L 137-14 5 Not Available [facility] (Lab) [address] [place], [address], 10/05/2022 19:16:09 10/06/19 23 10/05/2022 COMPR EHENS SOLO METAB OLIC PANEL potassium 4.4 mmol/ L 3.5-5. 1 Not Available [facility] (Lab) [address] [place], [address], 10/05/2022 19:16:09 10/06/19 23 10/05/2022 COMPR EHENS SOLO METAB OLIC PANEL chloride 103 mmol/ L 98-107 Not Available [facility] (Lab) [address] [place], [address], 10/05/2022 19:16:09 10/06/19 23 10/05/2022 COMPR EHENS SOLO METAB OLIC PANEL carbon dioxide 26 mmol/ L 22-30 Not Available [facility] (Lab) [address] [place], [address], 10/05/2022 19:16:09 10/06/19 23 10/05/2022 COMPR EHENS SOLO METAB OLIC PANEL anion gap 12.4 mmol/ L 14-22 low Not Available [facility] (Lab) [address] [place], [address], 10/05/2022 19:16:10/06/19 23 10/05/2022 COMPR EHENS SOLO METAB OLIC PANEL glucose 98 mg/dL 70-99 Not Available [facility] (Lab) [address] [place], [address], 10/05/2022 19:16:09 10/06/19 23 10/05/2022 COMPR EHENS SOLO METAB OLIC PANEL BUN 14 mg/dL 8-19 Not Available [facility] (Lab) [address] [place], [address], 10/05/2022 19:16:09 10/06/19 23 10/05/2022 COMPR EHENS SOLO METAB OLIC PANEL creatinine 0.86 mg/dL 0.66-1 .25 Not Available [facility] (Lab) [address] [place], [address], 10/05/2022 19:16:10/06/1910/05/2022 COMPR EHENS SOLO METAB OLIC PANEL GFR >60 Refer ence Range : [place] ge GFR Healt hy Adult : >60 mL/mi n/1.7 3 m2 Chron ic Kidne y Disea se: 15-60 mL/mi n/1.7 3 m2 Kidne y Failu re: <15/m L/min /1.73 m2 www.n iddk. nih.g ov The MDRD study equat ion has not been valid ated in child lizzie <18 years of age; pregn ant women ; the elder ly >85 years of age; or in some racia l or ethni c subgr oups, such as Hispa nics. Outsi de the valid ated devika eters , estim ated GFR is less accur ate, requi ring clini radha judgm ent on a case- by-ca se basis . Clini radha inter preta tion for other races and ages must be made by the clini amy. The MDRD study equat ion has not been valid ated for the evalu ation of serum creat inine relat ed to nutri [facility] or medic ation usage . For perso ns <18 years of age, a pedia tric GFR calcu lator is avail able on the [facility] websi te: https ://kimberly maurer.ketan hylton.o rg/pr ofess ional s/kdo qi/gf r_cal culat or Not Available [facility] (Lab) [address] [place], [address], 10/05/2022 19:16:09 10/06/19 23 10/05/2022 COMPR EHENS SOLO METAB OLIC PANEL alkaline phosphatase 101 U/L 38-126 Not Available [facility] (Lab) [address] [place], [address], 10/05/2022 19:16:09 10/06/1910/05/2022 COMPR EHENS SOLO METAB OLIC PANEL alanine aminotransfe rase 23 U/L 0-35 Not Available [facility] (Lab) [address] [place], [address], 10/05/2022 19:16:09 10/06/19 23 10/05/2022 COMPR EHENS SOLO METAB OLIC PANEL aspartate aminotransfe rase 31 U/L 15-37 Not Available [facility] (Lab) [address] [place], [address], 10/05/2022 19:16:09 10/06/19 23 10/05/2022 COMPR EHENS SOLO METAB OLIC PANEL bilirubin, total 0.50 mg/dL 0.20-1 .30 Not Available [facility] (Lab) [address] [place], [address], 10/05/2022 19:16:09 10/06/19 23 10/05/2022 COMPR EHENS SOLO METAB OLIC PANEL calcium 9.4 mg/dL 8.4-10 .2 Not Available [facility] (Lab) [address] [place], [address], 10/05/2022 19:16:09 10/06/1910/05/2022 COMPR EHENS SOLO METAB OLIC PANEL total protein 7.2 g/dL 6.3-8. 2 Not Available [facility] (Lab) [address] [place], [address], 10/05/2022 19:16:09 10/06/1910/05/2022 COMPR EHENS SOLO METAB OLIC PANEL albumin 4.6 g/dL 3.4-5. 0 Not Available [facility] (Lab) [address] [place], [address], 10/05/2022 19:16:09 10/06/1910/05/2022 COMPR EHENS SOLO METAB OLIC PANEL globulin 2.6 g/dL 2.6-4. 2 Not Available [facility] (Lab) [address] [place], [address], 10/05/2022 19:16:09 10/06/1910/05/2022 COMPR EHENS SOLO METAB OLIC PANEL A/G ratio 1.8 ratio 1.0-2. 0 Not Available [facility] (Lab) [address] [place], [address], 10/05/2022 19:16:09 10/06/1910/05/2022 LIPID PANEL cholesterol 238 mg/dL 140-19 9 high NIH MONI NSUS RECOM MENDA TION FOR ASHER STERO L: ADULT CHILD LOW RISK: <200 <170 BORDE RLINE : <200- 239 ----- HIGH RISK: >240 >200 Not Available [facility] (Lab) [address] [place], [address], 10/05/2022 19:16:12 10/06/1910/05/2022 LIPID PANEL triglyceride s 100 mg/dL 0-150 NIH MONI NSUS REPOR T RECOM MENDA TION FOR TRIGL YCERI JETHRO: ADULT CHILD LOW RISK: <150 ----- BODER LINE: 150-1 99 ----- HIGH RISK: >200 ----- Not Available [facility] (Lab) [address] [place], [address], 10/05/2022 19:16:12 10/06/1910/05/2022 LIPID PANEL HDL cholesterol 77 mg/dL 40- Not Available [facility] (Lab) [address] [place], [address], 10/05/2022 19:16:12 10/06/1910/05/2022 LIPID PANEL LDL cholesterol, calculated 141 mg/dL 0-130 high NIH MONI NSUS REPOR T RECOM MENDA TIONS FOR LDL: ADULT CHILD LOW RISK <130 <110 (OPTI MAL LDL) <100 ----- LUCINA RLINE : 130-1 59 ----- HIGH RISK: >160 >130 A TRIGL YCERI DE RESUL T >400 INVAL IDATE S THE CALCU LATIO N FOR LDL FRACT IONAT ION - THE LDL RESUL T WILL NOT BE REPOR ESTHER. Not Available [facility] (Lab) [address] [place], [address], 10/05/2022 19:16:12 10/06/1910/05/2022 T4 FREE free T4 0.82 NG/dL 0.78-2 .19 Not Available [facility] (Lab) [address] [place], [address], 10/05/2022 19:30:30 10/06/1910/05/2022 T3 FREE free T3 3.9 pg/mL 2.77-5 .27 Not Available [facility] (Lab) [address] [place], [address], 10/05/2022 19:30:36 10/06/19 23 10/05/2022 HEMOG LOBIN A1C HA1C 5.5 % 4.0-6. 0 Diabe ilya Carriee jeffry Crite israel: <5.7% Consi stent with absen ce of diabe ilya 5.7-6 .4% Consi stent with incre ased risk for diabe ilya (pred iabet es) >OR=6 .5% Consi stent with diabe ilya REFER ENCE: Diabe ilya Care 2016, 39(Lombardi ppl.1 ):s13 -s22 Not Available [facility] (Lab) [address] [place], [address], 10/05/2022 19:47:01 10/06/19 23 10/05/2022 TSH thyroid-stim ulating hormone 1.370 uIU/m L 0.465- 4.680 Not Available [facility] (Lab) [address] [place], [address], 10/05/2022 19:53:55 Result Notes None recorded. Problems Name Problem SNOMED Code Status Onset Date Resolution Date Notes Provider Name and Address Organization Details Recorded Time Disorder of shoulder 663946307 Active Not Available [facility] 3 07:25:46 Peptic ulcer 65774463 Active Not Available [facility] 3 07:25:46 Chronic obstructive pulmonary disease 65697943 Active Not Available [facility] 3 07:25:46 Constipation 36405473 Active Not Available [facility] 3 07:25:46 Localized, primary osteoarthriti s 357082487 Active Not Available [facility] 3 07:25:46 Partial thickness rotator cuff tear 815674322 Active Not Available [facility] 3 07:25:46 Gastroesophag eal reflux disease 890407140 Active Not Available [facility] 3 07:25:46 Dyspnea 240212615 Active Not Available [facility] 3 07:25:46 Shoulder joint pain 526584837 Active Not Available [facility] 3 07:25:46 Cervical spondylosis without myelopathy 092984926 Active Not Available [facility] 3 07:25:46 Persistent cough 576776798 Active Not Available [facility] 3 07:25:46 Dyslipidemia 931365715 Active Not Available [facility] 3 07:25:46 Osteoarthriti s 018773636 Active Not Available [facility] 3 07:25:46 Dysphagia 13730584 Active Not Available [facility] 3 07:25:46 Dyspnea on exertion 00066506 Active Not Available [facility] 3 07:25:47 Cervical spondylosis with myelopathy Active Not Available [facility] 3 07:25:47 Diverticulosi s of colon 013589753 Active Not Available [facility] 3 07:25:47 Neck pain 89497119 Active Not Available [facility] 3 07:25:47 Obesity 984876144 Active 2022 Not Available [facility] 3 07:25:47 Problem Notes None recorded. Procedures Surgical History Date Name Laterality Status Provider Name and Address Organization Details Recorded Time Ankle Surgery completed Not Available [facility] 04/26/2022 13:56:32 Cholecystectomy completed Not Available Count includes the [facility]th 04/26/2022 13:56:32 tonsilectomy/adenoi ds completed Not Available [facility] 04/26/2022 13:56:32 Rotator cuff surgery completed Not Available [facility] 04/26/2022 13:56:32 [facility]ste[facility] 04/26/[facility] 13:56:32 primary fusion of cervical spine completed Not Available [facility] 04/26/2022 13:56:32 colonoscopy completed Not Available [facility] 04/26/2022 13:56:32 endoscopy completed Not Available [facility] 0 04/26/2022 13:56:32 Imaging Results None recorded. Procedure Notes None recorded. Medical Equipment None Reported. Allergies No known drug allergies Medications Name Sig Start Date Stop Date Status Note LastModified by Organization Details LastModified Time quetiapin e 25 mg tablet TAKE 1 TABLET BY MOUTH AT BEDTIME NEEDED 10/05 completed Not Available Not Available Not Available prednison e 10 mg tablet 10/13 completed Not Available Not Available Not Available doxycycli ne hyclate 100 mg capsule Take 1 capsule twice a day by oral route for 14 days. active Not Available Not Available No t Available lamotrigi ne 200 mg tablet Take 2 tablets every day by oral route at bedtime. active Not Available Not Available No t Available ipratropi um 0.5 mg-albute rol 3 mg (2.5 mg base)/3 mL nebulizat ion soln Inhale 3 mL 4 times a day by nebuliza tion route. 04/06 completed Not Available Not Available Not Available trazodone 50 mg tablet TAKE 1 TABLET BY MOUTH AT BEDTIME NEEDED 10/26 completed pt stopped on her own Not Available Not Available Not Available oxybutyni n chloride ER 10 mg tablet,ex tended release 24 hr TK 1 T PO D 10/13 completed Not Available Not Available Not Available hydrocodo ne 5 mg-acetam inophen 325 mg tablet TK 1-2 TS PO Q 6 H PRN P RATED 4-6 10/13 completed Not Available Not Available Not Available sucralfat e 1 gram tablet TAKE 1 TABLET BY MOUTH BEFORE A MEAL AND AT BEDTIME 04/06 completed Not Available Not Available Not Available metronida zole 0.75 % (37.5 mg/5 gram) vaginal gel I 1 APL VAGINALL Y BID FOR 5 DAYS 10/13 completed Not Available Not Available Not Available atenolol 25 mg tablet 10/13 completed Not Available Not Available Not Available Wellbutri n SR 150 mg tablet, 12 hr sustained -release Take 3 tablets every day by oral route. 04/25 completed Not Available Not Available Not Available penicilli n V potassium 500 mg tablet Take 1 tablet 3 times a day by oral route for 7 days. 10/13 completed Not Available Not Available Not Available methylphe nidate ER 54 mg tablet,ex tended release 24 hr TK 1 T PO QAM 10/13 completed Not Available Not Available Not Available metronida zole 500 mg tablet 10/26 completed Not Available Not Available Not Available ciproflox acin 500 mg tablet TK 1 T PO BID FOR 7 DAYS 10/26 completed Not Available Not Available Not Available sulfameth oxazole 800 mg-trimet hoprim 160 mg tablet Take 1 tablet every 12 hours by oral route. 01/02 completed Not Available Not Available Not Available famotidin e 20 mg tablet TAKE 1 TABLET BY MOUTH TWICE DAILY 04/06 completed Not Available Not Available Not Available benzonata te 100 mg capsule TK 1 C PO BID active Not Available Not Available No t Available pantopraz ole 40 mg tablet,de layed release TAKE 1 TABLET BY MOUTH EVERY DAY active Not Available Not Available No t Available mirtazapi ne 30 mg tablet 10/13 completed Not Available Not Available Not Available docusate sodium 100 mg capsule TAKE 1 TO 2 CAPSULES BY MOUTH DAILY IN THE EVENING 04/06 completed Not Available Not Available Not Available Trileptal 300 mg tablet Take 1 tablet twice a day by oral route. 06/28 completed Not Available Not Available Not Available lorazepam 1 mg tablet Take 1 tablet 3 times a day by oral route as needed. 02/02 completed Not Available Not Available Not Available polyethyl fox glycol 3350 17 gram/dose oral powder MIX 1 CAPFUL INTO LIQUID AND DRINK BY MOUTH EVERY EVENING active Not Available Not Available No t Available levofloxa adelfo 500 mg tablet TK 1 T PO D FOR 10 DAYS 04/25 completed Not Available Not Available Not Available levofloxa adelfo 750 mg tablet 10/13 completed Not Available Not Available Not Available methylpre dnisolone 4 mg tablets in a dose pack TK PER PACKAGE DIRECTIO NS active Not Available Not Available No t Available albuterol sulfate HFA 90 mcg/actua tion aerosol inhaler INHALE 2 PUFFS BY MOUTH EVERY 4 HOURS NEEDED active Not Available Not Available No t Available dextroamp hetamine- amphetami ne ER 30 mg 24hr capsule,e xtend release TK ONE C PO D 10/13 completed Not Available Not Available Not Available methylphe nidate ER 36 mg tablet,ex tended release 24 hr TK 2 TS PO ONCE D IN THE MORNING 10/13 completed Not Available Not Available Not Available metoclopr amide 10 mg tablet TAKE 1/2 TO 1 TABLET BY MOUTH DAILY ABOUT 15 MINUTES BEFORE EATING LUNCH ON A DAILY OR AN NEEDED BASIS active Not Available Not Available No t Available amoxicill in 875 mg-potass ium clavulana te 125 mg tablet TK 1 T PO BID FOR 7 DAYS 10/13 completed Not Available Not Available Not Available azithromy adelfo 500 mg tablet TK 1 T PO QD 04/25 completed Not Available Not Available Not Available escitalop carlene 20 mg tablet Take 1 tablet every day by oral route. active Not Available Not Available No t Available bupropion HCl XL 150 mg 24 hr tablet, extended release Take 3 tablets every day by oral route. active Not Available Not Available No t Available Symbicort 80 mcg-4.5 mcg/actua tion HFA aerosol inhaler INHALE 2 PUFFS BY MOUTH TWICE DAILY 04/25 completed Not Available Not Available Not Available Suprep Bowel Prep Kit 17.5 gram-3.13 gram-1.6 gram oral solution DIRECTED 06/04 completed Not Available Not Available Not Available Moxeza 0.5 % eye drops INSTILL 1 DROP INTO AFFECTED EYE BID FOR 7 DAYS 10/13 completed Not Available Not Available Not Available Contrave 8 mg-90 mg tablet,ex tended release 10/13 completed Not Available Not Available Not Available Trulance 3 mg tablet TAKE 1 TABLET BY MOUTH EVERY DAY IN THE MORNING 07/21 completed Not Available Not Available Not Available Wegovy 0.25 mg/0.5 mL subcutane ous pen injector inject 0.25mg weekly for 4wks then go to 0.5mg weekly for 4wks active Not Available Not Available No t Available Vitals Date Recorded Body mass index (BMI) Body height Oxygen saturation Oxygen saturation in Arterial blood by Pulse oximetry Pain severity - 0-10 verbal numeric rating [Score] - Reported Heart rate Body temperature Body weight Provider Name and Address Organization Details Last Updated DateTime 1 31 kg/m2 160.02 cm 96 % 96 % 0 78 /min 97.1 [degF] 03719.6 6 g Not Available [facility] 3 13:56:54 Date Recorded Body mass index (BMI) Body height Heart rate Body temperature Body weight Systolic blood pressure Diastolic blood pressure Provider Name and Address Organization Details Last Updated DateTime 1 31.2 kg/m2 160.02 cm 78 /min 97 [degF] 89592.2 6 g 126 mm[Hg] 70 mm[Hg] Not Available [facility] 3 13:56:52 Date Recorded Body mass index (BMI) Body height Heart rate Body temperature Body weight Systolic blood pressure Diastolic blood pressure Provider Name and Address Organization Details Last Updated DateTime 1 31.7 kg/m2 160.02 cm 78 /min 98 [degF] 71510.0 3 g 122 mm[Hg] 80 mm[Hg] Not Available [facility] 3 13:56:52 Date Recorded Heart rate Body temperature Body weight Systolic blood pressure Diastolic blood pressure Provider Name and Address Organization Details Last Updated DateTime 3 84 /min 98.4 [degF] 84738.0 7 g 116 mm[Hg] 78 mm[Hg] Not Available [facility] 3 13:56:52 Date Recorded Body weight Heart rate Body temperature Systolic blood pressure Diastolic blood pressure Provider Name and Address Organization Details Last Updated DateTime 3 17291.8 5 g 89 /min 97.7 [degF] 116 mm[Hg] 78 mm[Hg] Quyen Seaman RN [place] [facility] 3 14:26:30 Social History Question Answer Notes LastModified by Organizat ion Details LastModified Time Tobacco Smoking Status Never Smoker Not Available [facility] 04/26/2022 13:56:28 Do You Have An Advance Directive? Yes [id number] Information not available 04/26/2022 What Is Your Level Of Alcohol Consumption? Occasional [id number] Information not available 04/26/2022 What Is Your Level Of Caffeine Consumption? Heavy [id number] Information not available 04/26/2022 How Much Tobacco Do You Chew? None [id number] Information not available 04/26/2022 In The 14 Days Before Symptom Onset, Have You Had Close Contact With A Laboratory-confir med COVID-19 While That Case Was Ill? No [id number] Information not available 04/26/2022 In The 14 Days Before Symptom Onset, Have You Had Close Contact With A Person Who Is Under Investigation For COVID-19 While That Person Was Ill? No [id number] Information not available 04/26/2022 Are You Currently Employed? Yes Information not available 10/05/2022 What Type Of Diet Are You Following? REGULAR [id number] Information not available 04/26/2022 Which Illicit Or Recreational Drugs Have You Used? None MIGRATION.[id number] Information not available 04/26/2022 Do You Or Have You Ever Used E-cigarettes Or Vape? Never Used Electronic Cigarettes MIGRATION.22693 [id number] Information not available 04/26/2022 What Is The Highest Grade Or Level Of School You Have Completed Or The Highest Degree You Have Received? 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 No MIGRATION.76517 10712 Information not available 04/26/2022 What Is The Fluoride Status Of Your Home? Unknown MIGRATION.15607 00841 Information not available 04/26/2022 Are There Any Guns Present In Your Home? Yes MIGRATION.91300 08031 Information not available 04/26/2022 Do You Use Insect Repellent Routinely? No MIGRATION.29008 31347 Information not available 04/26/2022 Where Do You Live? Other MIGRATION.95791 36826 Information not available 04/26/2022 Do You Have A Medical Power Of Transitional Care Manager? Yes MIGRATION.59519 04229 Information not available 04/26/2022 What Was The Date Of Your Most Recent Tobacco Screening? 10/05/2022 Information not available 10/05/2022 Have You Ever Been Counseled For Unhealthy Alcohol Use? No MIGRATION.61676 65976 Information not available 04/26/2022 Do You Have Any Pets? Yes MIGRATION.48899 39809 Information not available 04/26/2022 What Is Your Relationship Status? MIGRATION.35265 79987 Information not available 04/26/2022 Do You Use Your Seat Belt Or Car Seat Routinely? Yes MIGRATION.21251 00373 Information not available 04/26/2022 Do You Have Smoke And Carbon Monoxide Detectors In Your Home? Yes MIGRATION.45321 71126 Information not available 04/26/2022 Are You Passively Exposed To Smoke? Yes MIGRATION.06438 34577 Information not available 04/26/2022 Do You Or Have You Ever Used Smokeless Tobacco? Never Used Smokeless Tobacco MIGRATION.04885 02638 Information not available 04/26/2022 Are There Any Smokers In Your House? Yes Smokes MIGRATION.97590 22312 Information not available 04/26/2022 How Much Tobacco Do You Smoke? No MIGRATION.71029 30365 Information not available 04/26/2022 What Types Of Sporting Activities Do You Participate In? None MIGRATION.45236 40365 Information not available 04/26/2022 Do You Feel Stressed (tense, Restless, Nervous, Or Anxious, Or Unable To Sleep At Night)? [id number] MIGRATION.99417 46346 Information not available 04/26/2022 Do You Use Any Illicit Or Recreational Drugs? No MIGRATION.43357 08792 Information not available 04/26/2022 Do You Use Sunscreen Routinely? Yes MIGRATION.67148 09513 Information not available 04/26/2022 Has Tobacco Cessation Counseling Been Provided? No Not Needed-nev er Smoked MIGRATION.24644 66175 Information not available 04/26/2022 How Many Years Have You Smoked Tobacco? 0 MIGRATION.20863 47932 Information not available 04/26/2022 Have You Recently Traveled Abroad? No MIGRATION.84862 61980 Information not available 04/26/2022 Do You Have Any Dietary Restrictions? No MIGRATION.45771 58038 Information not available 04/26/2022 Do You Or Have You Ever Used Any Other Forms Of Tobacco Or Nicotine? No MIGRATION.40644 77807 Information not available 04/26/2022 Sex: Female Functional Status Question Answer Note LastModified by Organizat ion Details LastModified Time What is your exercise level? Occasional [id number] Information not available 04/26/2022 Mental Status None recorded. Family History Relationship Description Onset Age of this Age Resolved Age Notes LastModified by Organization Details LastModified Time Father Heart disease [id number] Not available 04/26/2022 13:56:32 Medical History Condition Response BLINDNESS N KIDNEY STONES N MRSA N CARPAL TUNNEL SYNDROME N OTHER # 1 N LUNG DISEASE/DISORDER N HISTORY OF DRUG ABUSE N RADIATION / CHEMOTHERAPY N COPD Y Other # 2 N BLOOD DISEASES N SURGERY N SCHIZOPHRENIA N BOWEL PROBLEMS N DEPRESSION (INCLUDING POST ) Y STROKE/TIA N ULCERS N BENIGN PROSTATIC HYPERPLASIA N OBESITY N GERD/NAUSEA N ANEURYSM N URINARY/BLADDER/KIDNEY PROBLEMS N CORONARY ARTERY DISEASE (CAD) N ADDICTION CONCERNS N USE OF BLOOD THINNERS N SKIN PROBLEMS N EMPHYSEMA N MUSCLE,JOINT OR BONE PROBLEMS N DVT N STOMACH ULCERS N BLOOD CLOTS N USE OF NSAIDS N CONCUSSION OR SPINAL TRAUMA N NEUROPATHY N AIDS/HIV N FRACTURES N HYPERTENSION N ANXIETY DISORDER Y Metal allergy N BLOOD TRANSFUSION N ANEMIA/BLOOD DISORDER N BIPOLAR DISORDER N BRONCHITIS N OSTEOARTHRITIS N TUBERCULOSIS N FOOT PROBLEM N HEART VALVE DISORDERS N ALLERGIES/HAYFEVER N INFECTIOUS DISEASE N HEART ARRHYTHMIA N INSOMNIA N RHEUMATOID ARTHRITIS N HIGH CHOLESTEROL / HYPERLIPIDEMIA N HYPERTHYROIDISM N NEUROLOGICAL PROBLEMS N EDEMA N CHRONIC PAIN SYNDROME N HYPOTHYROIDISM N CAROTID BLOCKAGE N BACK / NECK PROBLEMS Y HAVE YOU BEEN HOSPITALIZED OR SEEN IN [facility] ER IN THE PAST YEAR ? N BURSITIS N HERNIATED DISC N DIALYSIS N FIBROMYALGIA N OSTEOPOROSIS N ARTHRITIS Y PERIPHERAL NEUROPATHY N DIABETES, TYPE N HEARTBURN / REFLUX N HEPATITIS / LIVER DISEASE N GOUT N SLEEP DISORDER N ALZHEIMER'S DISEASE N HERPES N HEADACHES/MIGRAINES N SEIZURES/EPILEPSY N VASCULAR DISEASE N Blood Disorder N DIZZINESS N HEAD TRAUMA OR INJURY N HEART DISEASE/HEART PROBLEMS N MULTIPLE SCLEROSIS N CARDIAC ARRHYTHMIA N CANCER: SPECIFY N ANESTHESIA COMPLICATIONS N ATRIAL FIBRILLATION N AUTOIMMUNE DISEASE N Gynecological HistoryNo gynecological history recorded. Obstetrics History GPAL:G 0 P 0 0 0 0 Immunizations Vaccine Type Date Status Note Provider [facility] e and Address Organization Details Recorded Time COVID-19 vaccine, vector-nr, rS-ChAdOx1, PF, 0.5 mL 1 completed Not Available [facility] 10/06/2022 07:25:47 Influenza, split virus, trivalent, preservative 5 completed Not Available [facility] 10/06/2022 07:25:47 Past Encounters Encounter ID Performer Location Encounter Start Date Encounter Closed Date Diagnosis/Indication Diagnosis SNOMED-CT Code Diagnosis ICD10 Code Diagnosis Note [id number] [facility] Internal Med Beth silveira [facility] [place] [address] [address] 06/10/2020 00:00:00 06/10/2020 13:22:32 [id number] [place]_ IGRATION_ DEFAULT_1 _1 , 07/21/2020 00:00:00 07/21/2020 11:33:14 [id number] [facility] [place] [address] [address] 10/26/2020 00:00:00 11/01/2020 11:35:31 [id number] [facility] Internal Med Beth silveira [address] [place] [address] [place] [address] 11/23/2020 00:00:00 11/23/2020 22:33:29 [id number] [facility] Internal Med Beth silveria [address] [facility] [place] [address] 04/06/2022 00:00:00 04/09/2022 17:46:27 [id number] Kane Owens MD [facility] Internal Med Beth silveira [address] [facility] [place] [address] 10/05/2022 14:17:48 10/05/2022 15:29:52 Dyslipidemia 155959213 E78.5 Obesity 485367919 E66.9 Gastroesop hageal reflux disease 088884541 K21.9 Health Concerns Section Related Observation LastModified by Organization Detai ls LastModified Time None Recorded Concern Status LastModified by Organization Details LastModified Time None Recorded Advance Directives Directive Y: Payers Encounter Date Sequence Insurance Name Policy Number Policy Ahn Covered Member ID Ahn Member ID Guarantor Name 10/05/2022 1 [facility] [employer] [id number] Elpidio Lund [id number] Cynthia Lund Notes Date Note Type Note Provider Name and Address Organization Details Recorded Time 10/05/2022 text/html dyslipidemia tri es to follow low-fat dietobesity unsuccessful with dietGERD no heartburn.Anxiety seems to be stable Kane Owens MD [address] [place] [address] [address], [place], [address], [facility] 12/24/2022 17:26:46 OBGyn Episode No OBEpisode recorded.
--- OUTSIDE RECORDS SUMMARY | 2024-06-19 19:02 | XMS_ITS | Patient Health Record ---
Author Organization [facility] [employer] [facility] Address [address] [place] [address] Care Team Providers Care Flight Nurse Name Role Phone Kane Owens MD Primary Care Provider UnavailRemigio Hedrick Unavailable [phone] Migration, Provider Unavailable Unavailable Allergies No Known Allergies Reason For Referral No Information Medications Medication SIG (Take, Route, Frequency, Duration) Notes Start Date End Date Status buPROPion HCl ER (XL) 300 MG 1 tablet in the morning Oral Once a day for 90 days Active LORazepam 1 MG Oral PRN 06/20/2023 Acti ve Pantoprazole Sodium 40 MG Oral 06/20/2023 Active Famotidine 20 MG Oral 06/20/2023 Ac tive Vitamin B-12 1000 MCG Oral 06/20/2023 Active lamoTRIgine 200 MG 2 tablets Oral Once a day for 90 days Active Polyethylene Glycol 3350 Oral 06/20/2023 Active lamoTRIgine 200 MG 2 tablets Oral Once a day for 90 days Active VITAMIN D3 50 MCG (2,000 UNIT) TABLET *Reorder from [employer] for eRx and Interaction Alerts* 06/20/2023 Active Escitalopram Oxalate 20 MG 1 tablet Oral Once a day for 90 days Active Vraylar 1.5 mg 1 capsule Oral Once a day for 90 days Active Immunizations Vaccine Route Administration Date Status Comme nts Sandra Covid-19 Vaccine Unknown 10/01/2020 Administere d Influenza, seasonal, injecta ble, preservative free, 3 yrs and above Unknown 03/17/2014 Administered Social History Sex Assigned At : Social History Observation Description Sex Assigned At Female Problems Problem Type SNOMED Code ICD Code Onset Dates Problem Status W/U Status Risk Notes Problem Mixed bipolar I disorder (47285887) Bipolar disorder, current episode mixed, unspecified (F31.60) Active confirmed Problem Generalized anxiety disorder (96990452) Generalized anxiety disorder (F41.1) Active confirmed Problem Insomnia 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 (64056940) Insomnia due to other mental disorder (F51.05) Active confirmed Vital Signs Heart Rate 87 /min 06/05/2024 Height-cm 160.02 cm 06/05/2024 Blood pressure diastolic 72 mm Hg 06/05/2024 Weight-kg 73.03 kg 06/05/2024 Height 63.00 in 06/05/2024 Blood pressure systolic 103 mm Hg 06/05/2024 Weight 161 lbs 06/05/2024 BMI 28.52 kg/m2 06/05/2024 Encounters Encounter Location Date Provider Diagnosis [employer] [facility] [address] [place] [address] 06/05/2024 Remigio Romero Encounter for screening for cardiovascular disorders Z13.6 ; Encounter for screening for depression Z13.31 ; Bipolar disorder, current episode mixed, unspecified F31.60 ; Generalized anxiety disorder F41.1 and Insomnia due to other mental disorder F51.05 [facility] [employer] [facility] [address] [place] [address] 06/20/2023 Remigio Romero Insomnia due to othe r mental disorder F51.05 ; Generalized anxiety disorder F41.1 and Bipolar disorder, current episode mixed, unspecified F31.60 [facility] [employer] [facility] [address] [place] [address] 09/19/2023 Remigio Romero Bipolar disorder, current episode mixed, unspecified F31.60 ; Generalized anxiety disorder F41.1 and Insomnia due to other mental disorder F51.05 [facility] [employer] [facility] [address] [place] [address] 01/21/2024 Remigio Romero [facility] [employer] [facility] [address] [place] [address] 01/30/2024 Remigio Romero Hypertension, unspecified type 401.9 ; Bipolar disorder, current episode mixed, unspecified F31.60 ; Generalized anxiety disorder F41.1 and Insomnia due to other mental disorder F51.05 [facility] [address] [facility] [address] [place] [address] 05/30/2024 Remigio Romero [facility] [address] [facility] [address] [place] [address] 07/14/2023 Provider Migration [place] [id number] [facility] [address] [place] [address] 07/15/2023 Provider Migration [address] [facility] [address] [place] [address] 02/18/2024 Remigio Romero [place] [address] [facility] [address] [place] [address] 02/22/2024 Remigio Romero Assessments Encounter Date Diagnosis (ICD Code) Assessment Notes Treatment Notes Treatment Clinical Notes Section Notes 06/20/2023 Bipolar disorder, current episode mixed, unspecified (ICD-10 - F31.60) 06/20/2023 Generalized anxiety disorder (ICD-10 - F41.1) 06/20/2023 Insomnia due to other mental disorder (ICD-10 - F51.05) 09/19/2023 Bipolar disorder, current episode mixed, unspecified (ICD-10 - F31.60) Pt is stable with no complaints. Medication regimen is working well for her. Pt Seen by PMHNP student Nena Patel I have examined the patient with [employer] Student. It reflects today's encounter and my assessment and treatment plan. 09/19/2023 Generalized anxiety disorder (ICD-10 - F41.1) Continue Lorazepam 0.5 PRN Pt is stable with no complaints. Medication regimen is working well for her. Pt Seen by PMHNP student Nena Patel I have examined the patient with [employer] Student. It reflects today's encounter and my assessment and treatment plan. 01/30/2024 Hypertension, unspecified type (ICD9-CM - 401.9) Pt is stable with no complaints. Medication regimen is working well for her. Pt Seen by PMHNP student Nena Patel I have examined the patient with [employer] Student. It reflects today's encounter and my assessment and treatment plan. 1. Bipolar Disorder: - Patient reports improvement with current medication regimen. - Lamotrigine 400 mg at bedtime (200 mg x 2 tablets) - Vraylar 1.5 mg daily Plan: - Continue current medications. - Monitor for any changes in mood or side effects. - Follow up in 4 months. 2. Depression and Anxiety: - Patient reports improvement with current medication regimen. - Escitalopram 20 mg daily Plan: - Continue current medication. - Monitor for any changes in mood or side effects. - Follow up in 4 months. 3. Anger and Irritability: - Patient reports improvement with current medication regimen. - Vraylar 1.5 mg daily Plan: - Continue current medication. - Monitor for any changes in mood or side effects. - Follow up in 4 months. 4. Bupropion XL dosing: - Patient currently taking 150 mg x 2 tablets daily. Plan: - Change to Bupropion XL 300 mg x 1 tablet daily for patient convenience. - Monitor for any changes in mood or side effects. - Follow up in 4 months. 5. Occasional use of Lorazepam: - Patient reports infrequent use of lorazepam recently. Plan: - Continue lorazepam as needed for anxiety. - Monitor for any changes in mood or side effects. - Follow up in 4 months. 6. Work and Half-Way: - Patient reports work is going well and is counting down to fdc in 2.5 years. Plan: - Encourage patient to continue focusing on work and planning for fdc. - Follow up in 4 months. 06/05/2024 Encounter for screening for cardiovascular disorders (ICD-10 - Z13.6) 06/05/2024 Encounter for screening for depression (ICD-10 - Z13.31) 09/19/2023 Insomnia due to other mental disorder (ICD-10 - F51.05) Pt is stable with no complaints. Medication regimen is working well for her. Pt Seen by PMHNP student Nena Patel I have examined the patient with [employer] Student. It reflects today's encounter and my assessment and treatment plan. 01/30/2024 Bipolar disorder, current episode mixed, unspecified (ICD-10 - F31.60) Pt is stable with no complaints. Medication regimen is working well for her. Pt Seen by PMHNP student Nena Patel I have examined the patient with [employer] Student. It reflects today's encounter and my assessment and treatment plan. 1. Bipolar Disorder: - Patient reports improvement with current medication regimen. - Lamotrigine 400 mg at bedtime (200 mg x 2 tablets) - Vraylar 1.5 mg daily Plan: - Continue current medications. - Monitor for any changes in mood or side effects. - Follow up in 4 months. 2. Depression and Anxiety: - Patient reports improvement with current medication regimen. - Escitalopram 20 mg daily Plan: - Continue current medication. - Monitor for any changes in mood or side effects. - Follow up in 4 months. 3. Anger and Irritability: - Patient reports improvement with current medication regimen. - Vraylar 1.5 mg daily Plan: - Continue current medication. - Monitor for any changes in mood or side effects. - Follow up in 4 months. 4. Bupropion XL dosing: - Patient currently taking 150 mg x 2 tablets daily. Plan: - Change to Bupropion XL 300 mg x 1 tablet daily for patient convenience. - Monitor for any changes in mood or side effects. - Follow up in 4 months. 5. Occasional use of Lorazepam: - Patient reports infrequent use of lorazepam recently. Plan: - Continue lorazepam as needed for anxiety. - Monitor for any changes in mood or side effects. - Follow up in 4 months. 6. Work and Half-Way: - Patient reports work is going well and is counting down to fdc in 2.5 years. Plan: - Encourage patient to continue focusing on work and planning for fdc. - Follow up in 4 months. 01/30/2024 Generalized anxiety disorder (ICD-10 - F41.1) Continue Lorazepam 0.5 PRN Pt is stable with no complaints. Medication regimen is working well for her. Pt Seen by PMHNP student Nena Patel I have examined the patient with [employer] Student. It reflects today's encounter and my assessment and treatment plan. 1. Bipolar Disorder: - Patient reports improvement with current medication regimen. - Lamotrigine 400 mg at bedtime (200 mg x 2 tablets) - Vraylar 1.5 mg daily Plan: - Continue current medications. - Monitor for any changes in mood or side effects. - Follow up in 4 months. 2. Depression and Anxiety: - Patient reports improvement with current medication regimen. - Escitalopram 20 mg daily Plan: - Continue current medication. - Monitor for any changes in mood or side effects. - Follow up in 4 months. 3. Anger and Irritability: - Patient reports improvement with current medication regimen. - Vraylar 1.5 mg daily Plan: - Continue current medication. - Monitor for any changes in mood or side effects. - Follow up in 4 months. 4. Bupropion XL dosing: - Patient currently taking 150 mg x 2 tablets daily. Plan: - Change to Bupropion XL 300 mg x 1 tablet daily for patient convenience. - Monitor for any changes in mood or side effects. - Follow up in 4 months. 5. Occasional use of Lorazepam: - Patient reports infrequent use of lorazepam recently. Plan: - Continue lorazepam as needed for anxiety. - Monitor for any changes in mood or side effects. - Follow up in 4 months. 6. Work and Half-Way: - Patient reports work is going well and is counting down to fdc in 2.5 years. Plan: - Encourage patient to continue focusing on work and planning for fdc. - Follow up in 4 months. 06/05/2024 Bipolar disorder, current episode mixed, unspecified (ICD-10 - F31.60) 06/05/2024 Generalized anxiety disorder (ICD-10 - F41.1) Continue Lorazepam 0.5 PRN 01/30/2024 Insomnia due to other mental disorder (ICD-10 - F51.05) stable Pt is stable with no complaints. Medication regimen is working well for her. Pt Seen by PMHNP student Nena Patel I have examined the patient with [employer] Student. It reflects today's encounter and my assessment and treatment plan. 1. Bipolar Disorder: - Patient reports improvement with current medication regimen. - Lamotrigine 400 mg at bedtime (200 mg x 2 tablets) - Vraylar 1.5 mg daily Plan: - Continue current medications. - Monitor for any changes in mood or side effects. - Follow up in 4 months. 2. Depression and Anxiety: - Patient reports improvement with current medication regimen. - Escitalopram 20 mg daily Plan: - Continue current medication. - Monitor for any changes in mood or side effects. - Follow up in 4 months. 3. Anger and Irritability: - Patient reports improvement with current medication regimen. - Vraylar 1.5 mg daily Plan: - Continue current medication. - Monitor for any changes in mood or side effects. - Follow up in 4 months. 4. Bupropion XL dosing: - Patient currently taking 150 mg x 2 tablets daily. Plan: - Change to Bupropion XL 300 mg x 1 tablet daily for patient convenience. - Monitor for any changes in mood or side effects. - Follow up in 4 months. 5. Occasional use of Lorazepam: - Patient reports infrequent use of lorazepam recently. Plan: - Continue lorazepam as needed for anxiety. - Monitor for any changes in mood or side effects. - Follow up in 4 months. 6. Work and Half-Way: - Patient reports work is going well and is counting down to fdc in 2.5 years. Plan: - Encourage patient to continue focusing on work and planning for fdc. - Follow up in 4 months. 06/05/2024 Insomnia due to other mental disorder (ICD-10 - F51.05) stable Plan Of Treatment Next Appt Details Provider Name:Remigio lanza, 10/06/2024 02:45:00 PM, [address], [address], [place], [address], Insurance Providers Payer Name Payer Address Payer Phone Subscriber Number Group Number Insured Name Patient Relationship to Insured Coverage Start Date Coverage End Date [facility] [address] [place] [phone] [id number] CHLOE RAMOS Self - patient is the insured Medical (General) History Medical History History ICD Code Problems: Bipolar affective disorder, cu rrent episode mixed Generalized anxiety disorder Insomnia disorder related to another men bushra disorder , Surgical History Surgery Date(Month/Year) Tonsilectomy/adenoids Hysterectomy (65623) Removal of gallbladder (66449)
--- OUTSIDE RECORDS SUMMARY | 2024-06-19 19:02 | XMS_ITS | Referral Summary ---
Author Organization [facility] Address [address] [place] [address] Care Team Providers Care Optical Mechanic Name Role Phone Kane Owens MD Primary Care Provider [phone] Encounters Date Type Department Care Team Description 06/07/2024 12:11 PM CDT - 06/07/2024 11:59 PM CDT Hospital Encounter [facility] [address] [place], [place] [id number] Encounter for screening mammogram for malignant neoplasm of breast Discharge Disposition: Discharge to home or self care from Last 3 Months Allergies No known active allergies Medications LORazepam (ATIVAN) 1 mg tablet Take 1 tablet (1 mg total) by mouth every 8 (eight) hours as needed for anxiety Active escitalopram (LEXAPRO) 20 mg tabletIndicati ons:Anxiety with Depression Take 1 tablet (20 mg total) by mouth every morning Active lamoTRIgine (LaMICtal) 200 mg tabletIndicati ons:Simple-Par tial Epilepsy Take 2 tablets (400 mg total) by mouth nightly Active buPROPion XL (WELLBUTRIN XL) 150 mg 24 hr tablet Three tablets once daily 12/17/19 22 Active albuterol HFA (PROVENTIL HFA,VENTOLIN HFA,PROAIR HFA) 90 mcg/actuation inhaler 2 puffs every 4 (four) hours as needed 04/10/19 23 Active metoclopramide (REGLAN) 10 mg tablet Take 1 tablet (10 mg total) by mouth daily as needed (nausea) Active cyanocobalamin (Vitamin B-12) 1,000 mcg tabletIndicati ons:Prevention of Vitamin B12 Deficiency Take 1 tablet (1,000 mcg total) by mouth daily 90 tablet 3 05/20/19 24 Active cholecalcifero l (VITAMIN D-3) 2000 unit tablet Take 1 tablet (2,000 Units total) by mouth daily 90 tablet 3 05/20/19 24 Active polyethylene glycol (MIRALAX) 17 gram/dose bulk powder Take 1 capful every evening. 595 g 3 07/17/19 24 Active famotidine (PEPCID) 20 mg tablet Take 1 tablet (20 mg total) by mouth nightly 90 tablet 3 10/24/19 24 025 Active meclizine (ANTIVERT) 25 mg tabletIndicati ons:Labyrinthi tis of both ears,Eustachia n tube dysfunction, bilateral Take 1 tablet (25 mg total) by mouth 3 (three) times a day as needed for dizziness Collaborating physician Hesham Gordillo MD 30 tablet 02/26/20 24 Active ALPRAZolam (XANAX) 0.5 mg tabletIndicati ons:Labyrinthi tis of both ears Take 0.5-1 tablets (0.25-0.5 mg total) by mouth 3 (three) times a day as needed (To help alleviate vertigo not relieved by meclizine alone) Collaborating physician Hesham Gordillo MD 10 tablet 02/26/[address] (PROTONIX) 40 mg EC tablet Take 1 tablet (40 mg total) by mouth daily 90 tablet 3 06/04/[address] (PROTONIX) 40 mg EC tablet Take 1 tablet (40 mg total) by mouth daily 90 tablet 3 05/10/19 24 025 Discontin ued(Reord er) Active Problems Problem Noted Date Diagnosed Date Labyrinthitis of both ears 02/26/2024 Eustachian tube dysfunction, bilateral Maxillary sinusitis 02/26/2024 Chronic superficial gastritis without bleeding 0 04/26/2022 Erosive esophagitis 04/26/2022 Gaseous regurgitation 02/10/2022 History of peptic ulcer disease 07/12/2021 Cervical spondylosis with myelopathy 02/15/2021 Disorder of shoulder 02/15/2021 Diverticulosis of colon 02/15/2021 Dyslipidemia 02/15/2021 Dysphagia 02/15/2021 Dyspnea on exertion 02/15/2021 Incomplete tear of rotator cuff 02/15/2021 Localized, primary osteoarthritis 02/15/2021 Neck pain 02/15/2021 Osteoarthritis 02/15/2021 Persistent cough 02/15/2021 Shoulder joint pain 02/15/2021 Gastroesophageal reflux disease 02/15/2021 Peptic ulcer 02/15/2021 Hiatal hernia 02/15/2021 Delayed gastric emptying 02/15/2021 Schatzki's ring 02/15/2021 Gastroesophageal reflux dise ase with esophagitis without hemorrhage 01/11/2021 Gastroesophageal reflux dise ase with esophagitis without hemorrhage 01/11/2021 Gastritis with hemorrhage 01/11/2021 Ulcer of esophagus with bleeding 01/11/2021 History of colitis 01/11/2021 Nausea without vomiting 01/11/2021 Epigastric pain 01/11/2021 Chronic constipation 01/11/2021 Erosive gastritis 01/11/2021 History of cholecystectomy 01/11/2021 Colitis 07/30/2020 COPD (chronic obstructive pulmonary disease) 05/2020 Bipolar affective disorder 07/12/2013 Overview (06/02/2016): BIPOLAR AFFECTIVE NOS Depression 07/12/2013 Overview (06/02/2016): DEPRESSIVE DISORDER NEC Dehydration Resolved Problems Problem Noted Date Diagnosed Date Resolved Date Romo's esophagus without dysplasia 01/11/2021 07/12/2021 Immunizations Immunization Administration Dates Next Due Hep B Vaccine 06/11/2006 Influenza, Trivalent, IM (MDV) 12/28/2006 Tdap 03/27/2007 Social History Tobacco Use Types Packs/Day Years Used Date Smoking Tobacco: Never Smokeless Tobacco: Never Tobacco Cessation:Counseling Given: Not Answered Alcohol Use Standard Drinks/Week Comments No 0 (1 standard drink = 0.6 oz pur e alcohol) AUDIT-C Answer Date Recorded Frequency of Alcohol Consumption Not on file 04/26/2022 Q2: How many drinks containi ng alcohol do you have on a typical day when you are drinking? Patient does not drink Frequency of Binge Drinking Not on file 02/2022 PHQ-2 Answer Date Recorded PHQ-2 Total Score (If total score is 3 or more points, staff should administer the PHQ-9) 0 07/30/2020 Personal Safety Answer Date Recorded Have you ever been in or are you currently in a harmful physical or emotional relationship or is someone making you feel afraid or unsafe? 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 Gender Identity Not on file Sexual Orientation Not on file Last Filed Vital Signs Vital Sign Reading Time Taken Comments Blood Pressure 121/76 02/26/2024 8:44 PM PIPE STRIPPER Pulse 81 02/26/2024 8:44 PM PIPE STRIPPER Temperature 36.6 C (97.9 F) 02/26/2024 8:44 PM PIPE STRIPPER Respiratory Rate 16 02/26/2024 8:44 PM PIPE STRIPPER Oxygen Saturation 99% 02/26/2024 8:44 PM PIPE STRIPPER Inhaled Oxygen Concentration - - Weight 79.4 kg (175 lb) 02/26/2024 6:16 PM PIPE STRIPPER Height 160 cm (5' 3 ) 02/26/2024 6:16 PM PIPE STRIPPER Body Mass Index 31 02/26/2024 6:16 PM PIPE STRIPPER Plan of Treatment Not on file Medical Devices Implanted Type Area Rag Shredder Device Identifier Shelf Expiration Date Model / Serial / Lot Other-See Comments Other - see comments Right: Ankle Description:Right ankle scre ws and plates Procedures Procedure Name Priority Date/Time Associated Diagnosis Comments SCREENING MAMMOGRAM BILATERAL W KIRK Schedule Routine, Read Routine (OP Routine) 06/07/2024 12:25 PM CDT Encounter for screening mammogram for malignant neoplasm of breast from Last 3 Months Results * (ABNORMAL) Screening Mammogram Bilateral W Kirk (06/07/2024 12:25 PM CDT) Anatomical Region Laterality Modality Breast Bilateral Mammography 06/09/2024 9:03 AM CDT Impressions 06/09/2024 9:03 AM CDT Possible microcalcifications projecting in the left axilla are indeterminant. The patient should return for additional diagnostic mammographic images of the left breast following careful left axillary cleansing. BI-RADS: BI-RADS Category 0: Incomplete - Need Additional Imaging Evaluation. The patient has been or will be contacted. Electronically signed by: Sara Sullivan M.D. Narrative 06/09/2024 9:03 AM CDT EXAMINATION: SCREENING MAMMOGRAM BILATERAL W KIRK ORDERING HEALTHCARE PROVIDER: KANE OWENS HISTORY: Routine screening mammography. COMPARISON: New baseline TECHNIQUE: CC and MLO views of the bilateral breasts were obtained with digital technique using breast tomosynthesis with C view. Computer aided detection was utilized. FINDINGS: DENSITY: The breasts are almost entirely fatty. BREASTS: High density material projects in the left axilla. This may represent calcification or artifact. There are no other suspicious masses, suspicious calcifications, or other suspicious findings in either breast. Kane Owens MD IMG MAMMO PROCEDURES Final R esult from Last 3 Months Insurance [id number] [place] [address] [place] [address] Advance Directives For more information, please contact: [phone] * Full Code (Latest Code Status on File) Date Activated Date Inactivated Comments 10/24/2023 11:06 AM 10/24/2023 5:41 PM * Full Code Date Activated Date Inactivated Comments 10/24/2023 11:06 AM 10/24/2023 11:06 AM * Full Code Date Activated Date Inactivated Comments 03/27/2022 10:41 AM 03/27/2022 5:14 PM * Full Code Date Activated Date Inactivated Comments 03/27/2022 10:41 AM 03/27/2022 10:41 AM * Full Code Date Activated Date Inactivated Comments 01/18/2021 8:55 AM 01/18/2021 3:27 PM Care Teams Optical Mechanic Relationship Specialty Start Date End Date Kane Owens MD PCP - General 07/30/20
--- OUTSIDE RECORDS SUMMARY | 2024-06-19 19:02 | XMS_ITS | Clinical Summary ---
Author Organization [facility] Address [address] [place] [address] Care Team Providers Care Breastfeeding Peer Counselor Name Role Phone Kane Owens MD Primary Care Provider [phone] Allergies No known active allergies Medications LORazepam [...] both ears 02/26/2024 Eustachian tube dysfunction, bilateral 4 Maxillary sinusitis 02/26/2024 Chronic superficial gastritis without [...] Date Romo's esophagus without dysplasia 01/11/2021 07/12/2021 Encounters Date Type Department Care Team Description 06/07/2024 12:11 PM CDT - 06/07/2024 11:59 PM CDT Hospital Encounter [facility] [address] [place], [place] [id number] Encounter for screening mammogram for malignant neoplasm of breast Discharge Disposition: Discharge to home or self care from Last 3 Months Immunizations Immunization Administration Dates Next Due Hep B Vaccine 06/11/2006 Influenza, Trivalent, IM (MDV) 12/28/2006 Tdap 03/27/2007 Surgical History Surgery Date Site/Laterality Comments OTHER SURGICAL HISTORY Bipolar: medicine OTHER SURGICAL HISTORY T & A OTHER SURGICAL HISTORY 02/27/1996 - 02/25/1997 AC REPAIR HYSTERECTOMY 02/26/2001 - 02/25/2002 Hysterectomy OTHER SURGICAL HISTORY 02/26/1995 - 02/26/1996 C 4 & 5 FUSION CHOLECYSTECTOMY 02/27/1988 - 02/25/1989 Cholecystectomy HYSTERECTOMY 02/27/2000 - 02/25/2001 TONSILLECTOMY 02/26/1969 - 02/25/1970 ANKLE FRACTURE SURGERY Right screws and plates present Medical History Medical History Date Comments Hx Other Medical PSYCHIATRIST 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 [employer] Hx Other Medical Bipolar Hx Other Medical 01-KINDERGARTNER Hx Other Medical 02-PSYCH Asthma Bipolar disorder (HCC) Family History Medical History Relation Name Comments Arthritis Father Arthritis Mother Breast cancer Mother Cancer -breast ; Relation Name Status Comments Father Mother Social History Tobacco Use Types Packs/Day Years [...] on file Legal Sex Female 11:55 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 Gender Identity Not on file Sexual Orientation Not on file Obstetrics History Para Term AB IAB SAB Ectopic Multiple Livin g Live Births 2 2 2 Date Outcome GA Total Labor Labor/2nd/3rd Weight Sex Type Anes PTL Ester A1 A5 Name Clin Term Term Last Filed Vital Signs Vital Sign Reading Time Taken Comments Blood Pressure 121/76 02/26/2024 8:44 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 Pulse 81 02/26/2024 8:44 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 Temperature 36.6 C (97.9 F) 02/26/2024 8:44 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 Respiratory Rate 16 02/26/2024 8:44 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 Oxygen Saturation 99% 02/26/2024 8:44 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 Inhaled Oxygen Concentration - - Weight 79.4 kg (175 lb) 02/26/2024 6:16 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 Height 160 cm (5' 3 ) 02/26/2024 6:16 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 Body Mass Index 31 02/26/2024 6:16 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 Plan of Treatment Health Maintenance Due Date Last Done Comments Colon Cancer Screening-Colonoscopy 1961 Hepatitis C Screening 1961 Regular Well Visit/Exam 18-64 07/14/1979 Pneumococcal vaccine <65 (1 of 2 - PCV) 1980 Zoster Vaccine (1 of 2) 07/14/2011 DTaP/Tdap/Td Vaccine (2 - Td or Tdap) 03/27/2017 Depression Screening 07/30/2021 07/30/2020 Influenza Vaccine (Season Ended) 2024 03/17/19 15, 12/28/2006 Breast Cancer Screening-Mammogram 06/07/2025 025 Hepatitis B Screening Completed 06/11/2006 Medical Devices Implanted Type Area Ultrasound Technol Device Identifier Shelf Expiration Date Model / [...] or other suspicious findings in either breast. us Kane Owens MD IMG MAMMO PROCEDURES Final R esult from Last 3 Months Insurance Advance Directives For more information, please contact: [phone] * Full Code (Latest Code Status on [...] 8:55 AM 01/18/2021 3:27 PM Care Teams Breastfeeding Peer Counselor Relationship Specialty Start Date End Date Kane Owens MD PCP - General 07/30/20
[2024-06-19 19:04] VITALS: BP 114/78; PULSE 104; RESP 20; TEMP 36.3; O2SAT 96
--- NOTE | 2024-06-19 19:27 | ED_ITS ---
HPI - Back Pain/Injury General Chief Complaint: Back Pain/Injury Stated Complaint: back pain Time Seen by Provider: 06/19/24 19:28 Source: patient, RN notes reviewed and old records reviewed Mode of arrival: ambulatory Limitations: no limitations History of Present Illness HPI Narrative: 63 year old female accompanied by spouse with complaints of 2 month duration of left thoracic back pain with no known injury or fall. Patient reports that she has been seeing chiropractor for her pain and she saw them today for increasing pain and was told to come to clinic for steroids and pain medication. Patient reports pain 8/10 with no midline spinal pain palpable tenderness to left thoracic spinal region, Patient reports that she has been using heat and taking Tylenol but pain has increased in intensity. Patient has appointment with her PCP tomorrow and she is suppose to return to chiropractor on Sunday. MD elicited complaint: back pain Pertinent past history: other (cervical spine surgery) Onset (ago): month(s) (2 months increased pain left thoracic back today) Pain scale (0-10): 8 Radiation: none Treatments prior to arrival: heat therapy, acetaminophen and other (has been seeing chiropractor) Related Data Home Medications ?Medication ?Instructions ?Recorded ?Confirmed ?Last Taken ?Type cariprazine 1.5 mg capsule 1.5 mg PO DAILY 12/26/23 12/26/23 Unknown History (Vraylar) pantoprazole 40 mg tablet,delayed 40 mg PO DAILY 12/26/23 12/26/23 Unknown History release Allergies Allergy/AdvReac Type Severity Reaction Status Date / Time No Known Allergies Allergy Unknown Verified 06/19/24 19:09 Review of Systems Review of Systems: CONSTITUTIONAL: Denies fever, chills, or sweats. EYES: Denies visual changes, redness, or discharge. ENT: Denies rhinorrhea, congestion, sore throat, or otalgia. CARDIOVASCULAR: Denies chest pain, palpitations, or edema. RESPIRATORY: Denies cough or any acute dyspnea. GASTROINTESTINAL: Denies abdominal pain, nausea, vomiting, or diarrhea. GENITOURINARY: Denies dysuria or hematuria. SKIN: Denies rash or itching. MUSCULOSKELETAL: Left acute thoracic back pain, or myalgia. NEUROLOGIC: Denies headache, numbness, or weakness. PSYCHIATRIC: Reports history of anxiety or depression. All systems reviewed & are unremarkable except as noted in HPI and below PMFSH Past Medical History Medical History GERD (gastroesophageal reflux disease) Anxiety and depression COPD (chronic obstructive pulmonary disease) Ankle fracture, right Bipolar disorder Surgical History Surgical History H/O: hysterectomy H/O repair of right rotator cuff H/O cervical spine surgery History of ankle surgery RT ankle History of cholecystectomy History of adenoidectomy History of tonsillectomy Social History Social History Smoking status: Never smoker Occupation/Education: occupation Gender identity (if verbalized by the patient): Female Comments At time of signature, agree with nursing past medical, surgical, social and family history. There is no relevant family history pertinent to the presenting complaint Exam Narrative: GENERAL: Well-appearing, well-nourished, and in some acute distress. HEAD: Normocephalic, atraumatic. EYES: PERRLA and EOMI. ENT: Nares clear, no rhinorrhea or epistaxis. Mucous membranes moist.TM's normal throat pink with tonsils absent NECK: Supple.no lymphadenopathy CHEST: Clear to auscultation. No respiratory distress.SAO2 96% on room air HEART: Regular rate and rhythm. No murmur heard. Normal peripheral pulses. ABDOMEN: Soft, nontender, nondistended, normal active bowel sounds. EXTREMITIES: Normal range of motion. No edema. Pain to left sided thoracic back area with no midline spine pain, denies any tingling or numbness to arms or hands strong pulses present to bilateral arms, denies any recent fall or known injury to area. SKIN: Warm, dry, no rash. NEURO: No focal deficits. Alert and oriented x3. Course Course Emergency Course: Patient is aware of diagnosis, understands and agrees to treatment plan.? Anticipatory guidance given.? Patient agrees to follow-up as directed and is aware of reasons to seek care at the emergency department. Portions of this record may have been created with voice recognition software Level of Care: Express Care Visit Vital Signs Vital signs: Vital Signs Temperature 36.3 C L 06/19/24 19:04 Pulse Rate 104 H 06/19/24 19:04 Respiratory Rate 20 06/19/24 19:04 Blood Pressure 114/78 06/19/24 19:04 Pulse Oximetry 96 06/19/24 19:04 Oxygen Delivery Room Air 06/19/24 19:04 Temperature 36.3 C L 06/19/24 19:04 Pulse Rate 104 H 06/19/24 19:04 Respiratory Rate 20 06/19/24 19:04 Blood Pressure 114/78 06/19/24 19:04 Pulse Oximetry 96 06/19/24 19:04 Oxygen Delivery Room Air 06/19/24 19:04 Reviewed MDM - Back Pain/Injury Differential Diagnosis Differential diagnosis: Likely thoracic back pain, discitis and other (acute pain left thoracic back, no injury) Medical Records Attestation: I reviewed the patient's medical records. Critical Care Time Critical Care Time Critical Care Time: No Discharge Plan Discharge Clinical Impression: Back pain Qualifiers: Back pain location: thoracic back pain Chronicity: acute Back pain laterality: left Qualified Code(s): M54.6 - Pain in thoracic spine Patient Disposition: Home Condition: Stable Instructions: Antibiotic Form, Back Pain (ED) Additional Instructions: Ice and heat to the area for 20-30 minutes Gentle stretching exercises Gentle massage Caution with lifting, bending, stooping, twisting Avoid pushing, pulling take muscle relaxants as directed--caution drowsiness and no driving or alcohol Anti-inflammatory medicine as directed--take with food He may take the muscle relaxant and anti-inflammatory at the same time Pain medicine as directed for severe pain--caution drowsiness-no driving or alcohol. If this medicine is a narcotic, you can become constipated. He may want to start a laxative right away. Follow-up with your PCP if not improving in 5-7 days Patient Language: Wolof Prescriptions: New cyclobenzaprine 10 mg tablet 10 mg PO TID Qty: 20 0RF Rx Instructions: Do not drive or operate machinery while taking prednisone 20 mg tablet 40 mg PO DAILY 5 Days Qty: 10 0RF Rx Instructions: Start in the morning take with food hydrocodone-acetaminophen 7.5-325 mg tablet 1 tablet PO Q6H PRN (Reason: pain) Qty: 10 0RF No Action Vraylar 1.5 mg capsule 1.5 mg PO DAILY pantoprazole 40 mg tablet,delayed release (DR/EC) 40 mg PO DAILY Follow-up/Referrals: Roman,MD Kane [Primary Care Provider] - Time of Disposition: 19:41 Quality [place] Coma Scale Eyes: Open Verbal: Oriented and Alert Motor: Follows Commands Linda Coma Total Score: 15
== END 2024-06-19 19:45 | disposition home or self-care (01) ==
PROVIDERS: Emergency Provider Registered Nurse; PCP Internal Medicine
DX: M54.6 Pain in thoracic spine (principal); J44.9 Chronic obstructive pulmonary disease, unspecified
CPT/HCPCS: 99213; G0463

== ENCOUNTER 2024-06-28 08:11 | Emergency (ER) | payer OTHER, SELFPAY ==
[2024-06-28 08:21] VITALS: BP 135/81; PULSE 95; RESP 20; TEMP 35.8; O2SAT 98
[2024-06-28] MEDS: methylPREDNISolone SOD SUCC 125 MG VIAL IM (08:38)
--- NOTE | 2024-06-28 08:53 | ED.BACK ---
HPI - Back Pain/Injury General Chief Complaint: Back Pain/Injury Stated Complaint: back pain Time Seen by Provider: 06/28/24 08:20 Source: patient and RN notes reviewed Mode of arrival: ambulatory Limitations: no limitations History of Present Illness HPI Narrative: 63-year-old female presents Express [facility] complaining left middle back pain for the last 2 weeks. Patient was seen here approximately 10 days ago for the same issue. Patient was sent home on Vicodin, prednisone, and Flexeril. Patient denies any apparent injury to her back. Patient reports the pain is on the left side of her middle back and reports having muscle spasms. Patient follow-up with her PCP who did x-rays her ribs, chest, spine and was told everything was normal. Patient said last week she was having a good week now the pain has gotten worse. Patient says he has 1 dose left of Vicodin and is out of her Flexeril. Patient also has been taking Tylenol ibuprofen for pain. Patient rates her pain a 8/10 that is a sharp and stabbing pain that is nonradiating that is worse with movements. Patient denies any numbness tingling, weakness, loss of bowel or bladder, or any other complaints. . Related Data Home Medications ?Medication ?Instructions ?Recorded ?Confirmed ?Last Taken ?Type cariprazine 1.5 mg capsule 1.5 mg PO DAILY 12/26/23 12/26/23 Unknown History (Vraylar) pantoprazole 40 mg tablet,delayed 40 mg PO DAILY 12/26/23 12/26/23 Unknown History release bupropion HCl 150 mg 24 hr tablet, mg PO 06/28/24 Unknown History extended release bupropion HCl 300 mg 24 hr tablet, mg PO 06/28/24 Unknown History extended release escitalopram oxalate 20 mg tablet mg 06/28/24 Unknown History famotidine 20 mg tablet mg 06/28/24 Unknown History Allergies Allergy/AdvReac Type Severity Reaction Status Date / Time No Known Allergies Allergy Unknown Verified 06/28/24 08:22 Review of Systems Review of Systems: CONSTITUTIONAL: Denies fever, chills, or sweats. EYES: Denies visual changes, redness, or discharge. ENT: Denies rhinorrhea, congestion, sore throat, or otalgia. CARDIOVASCULAR: Denies chest pain, palpitations, or edema. RESPIRATORY: Denies cough or dyspnea. GASTROINTESTINAL: Denies abdominal pain, nausea, vomiting, or diarrhea. GENITOURINARY: Denies dysuria or hematuria. SKIN: Denies rash or itching. MUSCULOSKELETAL: Denies joint pain, or myalgia. Positive for upper back pain NEUROLOGIC: Denies headache, numbness, or weakness. PSYCHIATRIC: Denies anxiety or depression. All other systems reviewed are negative, except as documented in HPI. [facility] Past Medical History Medical History GERD (gastroesophageal reflux disease) Anxiety and depression COPD (chronic obstructive pulmonary disease) Ankle fracture, right Bipolar disorder Surgical History Surgical History H/O: hysterectomy H/O repair of right rotator cuff H/O cervical spine surgery History of ankle surgery RT ankle History of cholecystectomy History of adenoidectomy History of tonsillectomy Social History Social History Smoking status: Never smoker Occupation/Education: occupation Gender identity (if verbalized by the patient): Female Comments At the time of my signature, I reviewed and agree with the nursing past medical, surgical, social, and family history. There is no relevant family history pertinent to the patient complaint. Exam Narrative: GENERAL: This is a well-nourished, well-developed adult, in no apparent distress. They are non ill-appearing, nontoxic appearing. HEAD: normocephalic, atraumatic. EYES: Sclera clear/white. Conjunctiva normal. Vision is grossly intact. Extraocular movements intact EARS: External ears normal, Hearing grossly intact. NOSE: External nose normal THROAT: Mucous membranes moist NECK: Normal range of motion CARDIOVASCULAR: Regular rate and rhythm RESPIRATORY: Respiratory rate normal, respiratory effort nonlabored, no respiratory distress SKIN: warm, Dry, intact with no suspicious lesions or rash, good texture and turgor. NEURO: awake, alert, and oriented to person, place and time. There were no obvious focal neurologic abnormalities. Normal sensation. EXTREMITIES: No joint tenderness, effusion, or edema noted. BACK: No cervical, thoracic, lumbar spine point tenderness. No crepitus or step-offs. Tenderness to palpation to the left lower medial scapular region of the patient's back. This region of her back feels tight. No CVA tenderness. Course Course Emergency Course: Portions of this record may have been created with voice recognition software Level of Care: Express Care Visit Vital Signs Vital signs: Vital Signs Temperature 96.5 F L 06/28/24 08:21 Pulse Rate 95 06/28/24 08:21 Respiratory Rate 20 06/28/24 08:21 Blood Pressure 135/81 06/28/24 08:21 Pulse Oximetry 98 06/28/24 08:21 Oxygen Delivery Room Air 06/28/24 08:21 Temperature 96.5 F L 06/28/24 08:21 Pulse Rate 95 06/28/24 08:21 Respiratory Rate 20 06/28/24 08:21 Blood Pressure 135/81 06/28/24 08:21 Pulse Oximetry 98 06/28/24 08:21 Oxygen Delivery Room Air 06/28/24 08:21 Reviewed MDM - Back Pain/Injury MDM Narrative Medical decision making narrative: Symptoms are more consistent with a muscle strain. No apparent injury patient states. Patient has had imaging done through her PCP which it was told was normal. Discussed with patient close follow-up with PCP for further pain management. She will also need to talk to her PCP about a new prescription for her narcotics. Patient is out of her muscle relaxers. Will give patient another prescription for Robaxin. Patient was given a shot methylprednisone. Patient was recently on prednisone therefore no additional steroids were prescribed. Will also prescribe patient lidocaine patches and diclofenac gel for topical treatment. Discussed physical exam findings. Advised supportive measures and signs/symptoms to go to the ER. Pt is appropriate for outpt treatment and f/u. Differential Diagnosis Differential diagnosis: Likely other (Muscle strain, thoracic radiculopathy, muscle spasms) Critical Care Time Critical Care Time Critical Care Time: No Discharge Plan Discharge Clinical Impression: Back pain Qualifiers: Back pain location: thoracic back pain Chronicity: unspecified Back pain laterality: left Qualified Code(s): M54.6 - Pain in thoracic spine Patient Disposition: Home Condition: Stable Instructions: Antibiotic Form, Muscle Strain (ED) Additional Instructions: Is likely that you have a muscle strain. Take the muscle relaxer as directed. Do not drive or operate heavy machine, or work while taking the medication as it can make you drowsy. Use the lidocaine patches as directed. Use diclofenac gel as directed. You may take Tylenol or ibuprofen as needed Rest. Avoid pushing, pulling, lifting --running or excessive walking-- or anything that worsens the symptoms You may apply ice or heat to the affected area of your back 20 minutes at a time. You may try back stretches that may help with your pain. You may consider getting a massage with someone who is trained in myofascial release. Please follow-up with her primary care provider for further evaluation management. You may need to see a pain specialist if pain persist. Go to the emergency department if you develop any numbness or tingling to your groin, weakness in your legs, or any loss of bowel or bladder function. Patient Language: Azerbaijani Prescriptions: New methocarbamol 750 mg tablet 750 mg PO TID PRN (Reason: muscle spasms) Qty: 12 0RF lidocaine 5 % adhesive patch,medicated 1 patch topical DAILY Qty: 15 0RF Rx Instructions: leave on most painful area for up to 12 hrs diclofenac sodium 1 % gel 4 g topical QID Qty: 50 0RF Rx Instructions: apply to the affected area only. No Action Vraylar 1.5 mg capsule 1.5 mg PO DAILY pantoprazole 40 mg tablet,delayed release (DR/EC) 40 mg PO DAILY cyclobenzaprine 10 mg tablet 10 mg PO TID Qty: 20 0RF Rx Instructions: Do not drive or operate machinery while taking prednisone 20 mg tablet 40 mg PO DAILY 5 Days Qty: 10 0RF Rx Instructions: Start in the morning take with food hydrocodone-acetaminophen 7.5-325 mg tablet 1 tablet PO Q6H PRN (Reason: pain) Qty: 10 0RF famotidine 20 mg tablet escitalopram oxalate 20 mg tablet bupropion HCl 300 mg tablet extended release 24 hr PO bupropion HCl 150 mg tablet extended release 24 hr PO Follow-up/Referrals: Roman,MD Kane [Primary Care Provider] - Time of Disposition: 08:37
--- OUTSIDE RECORDS SUMMARY | 2024-06-28 15:53 | XMS_ITS | Clinical Summary ---
Author Organization [facility] [id number] [facility] Address [address] [place] [address] Care Team Providers Care [employer] Name Role Phone Kane Owens MD Primary Care Provider [phone] Medications brexpiprazole (REXULTI) 2 mg Tablet Take [...] (1 - 1-dose 75+ series) 2036 Insurance [facility] [place], [place] [id number] [place] [address] Care Teams [employer] Relationship Specialty Start Date End Date Kane Owens MD [address] [place] [id number] PCP - General Internal Medicine 05/29/18
--- OUTSIDE RECORDS SUMMARY | 2024-06-28 15:54 | XMS_ITS | Data Portability ---
Author Organization [facility], Main Office Address [address] [place] [address] Assessment Encounter Date Assessment Date Assessment LastModified by Organization Details LastModified Time 10/05/2022 10/05/2022 Blood work G LP 1 for obesity Follow-up in 4 weeks or 4 months depending upon she whether she gets to GLP 1 Regular exercise Not available 12/24/2022 17:25:06 Plan of Treatment [...] mL subcutaneou s pen injector 2022 023 [id number] [id number], [address], [place], [place], [id number], 16:54:25 Patient TargetsNo targets recorded. Patient InstructionsNo instructions recorded. Reason for Referral None Reported. Results Created Date Observation Date Name Description Value Unit Range Abnormal Flag Note LastModifiedBy Organization Detail LastModifiedTime 10/06/1910/05/2022 CBC/C OMPLE TE BLD COUNT W/DIF F white blood cells 5.3 x10'3 /uL 4.2-10 .8 Not Available [facility] (Lab) [address] [place], [address], 10/05/2022 18:11:22 10/06/1910/05/2022 CBC/C OMPLE TE BLD COUNT W/DIF F red blood cells 4.45 x10'6 /uL 3.80-5 .20 Not Available [facility] (Lab) [address] [place], [address], 10/05/2022 18:11:22 10/06/1910/05/2022 CBC/C OMPLE TE BLD COUNT W/DIF F hemoglobin 13.0 g/dL 12.0-1 5.6 Not Available [facility] (Lab) [address] [place], [address], 10/05/2022 18:11:22 10/06/1910/05/2022 CBC/C OMPLE TE BLD COUNT W/DIF F hematocrit 38.8 % 35.7-4 5.7 Not Available [facility] (Lab) [address] [place], [address], 10/05/2022 18:11:22 10/06/19 23 10/05/2022 CBC/C OMPLE TE BLD COUNT W/DIF F mean red cell volume 87.2 fL 82.0-9 9.0 Not Available [facility] (Lab) [address] [place], [address], 10/05/2022 18:11:22 10/06/19 23 10/05/2022 CBC/C OMPLE TE BLD COUNT W/DIF F mean red cell hemoglobin 29.2 pg 27.0-3 3.0 Not Available [facility] (Lab) [address] [place], [address], 10/05/2022 18:11:22 10/06/19 23 10/05/2022 CBC/C OMPLE TE BLD COUNT W/DIF F mean RBC HGB concentratio n 33.5 g/dL 31.0-3 6.0 Not Available [facility] (Lab[facility] [address] [facility] [place], [address], 10/05/2022 18:11:22 10/06/19 23 10/05/2022 CBC/C OMPLE TE BLD COUNT W/DIF F red cell distribution width 11.7 % 11.8-1 5.5 low Not Available [facility] (Lab) [address] [place], [address], 10/05/2022 18:11:22 10/06/19 23 10/05/2022 CBC/C OMPLE TE BLD COUNT W/DIF F platelets 331 x10'3 /uL 150-40 0 Not Available [facility] (Lab) [address] [place], [address], 10/05/2022 18:11:22 10/06/19 23 10/05/2022 CBC/C OMPLE TE BLD COUNT W/DIF F mean platelet volume 9.3 fL 9.0-12 .4 Not Available [facility] (Lab) [address] [place], [address], 10/05/2022 18:11:22 10/06/19 23 10/05/2022 CBC/C OMPLE TE BLD COUNT W/DIF F neutrophils 52.4 % 39.0-7 2.0 Not Available [facility] (Lab) [address] [place], [address], 10/05/2022 18:11:22 10/06/19 23 10/05/2022 CBC/C OMPLE TE BLD COUNT W/DIF F lymphocytes 37.2 % 16.0-4 7.0 Not Available [facility] (Lab) [address] [place], [address], 10/05/2022 18:11:22 10/06/19 23 10/05/2022 CBC/C OMPLE TE BLD COUNT W/DIF F monocytes 7.2 % 5.0-12 .0 Not Available [facility] (Lab) [address] [place], [address], 10/05/2022 18:11:22 10/06/19 23 10/05/2022 CBC/C OMPLE TE BLD COUNT W/DIF F eosinophils 1.7 % 1.0-7. 0 Not Available [facility] (Lab) [address] [place], [address], 10/05/2022 18:11:22 10/06/19 23 10/05/2022 CBC/C OMPLE TE BLD COUNT W/DIF F basophils 0.9 % 0.0-2. 0 Not Available [facility] (Lab) [address] [place], [address], 10/05/2022 18:11:22 10/06/19 23 10/05/2022 CBC/C OMPLE TE BLD COUNT W/DIF F immature granulocytes 0.6 % 0.00-0 .50 high Not Available [facility] (Lab) [address] [place], [address], 10/05/2022 18:11:22 10/06/19 23 10/05/2022 CBC/C OMPLE TE BLD COUNT W/DIF F neutrophils, absolute count 2.77 x10'3 /uL 1.5-8. 0 Not Available [facility] (Lab) [address] [place], [address], 10/05/2022 18:11:22 10/06/19 23 10/05/2022 CBC/C OMPLE TE BLD COUNT W/DIF F lymphocytes, absolute count 1.97 x10'3 /uL 1.07-3 .43 Not Available [facility] (Lab) [address] [place], [address], 10/05/2022 18:11:22 10/06/19 23 10/05/2022 CBC/C OMPLE TE BLD COUNT W/DIF F monocytes, absolute count 0.38 x10'3 /uL 0.29-0 .99 Not Available [facility] (Lab) [address] [place], [address], 10/05/2022 18:11:22 10/06/19 23 10/05/2022 CBC/C OMPLE TE BLD COUNT W/DIF F eosinophils, absolute count 0.09 x10'3 /uL 0.02-0 .53 Not Available [facility] (Lab) [address] [place], [address], 10/05/2022 18:11:22 10/06/19 23 10/05/2022 CBC/C OMPLE TE BLD COUNT W/DIF F basophils, absolute count 0.05 x10'3 /uL 0.01-0 .08 Not Available [facility] (Lab) [address] [place], [address], 10/05/2022 18:11:22 10/06/19 23 10/05/2022 CBC/C OMPLE TE BLD COUNT W/DIF F immature granulocytes ,absolute 0.03 x10'3 /uL 0.00-0 .05 Not Available [facility] (Lab) [address] [place], [address], 10/05/2022 18:11:22 10/06/19 23 10/05/2022 CBC/C OMPLE TE BLD COUNT W/DIF F nucleated red blood cells 0.0 % -0 Not Available [facility] (Lab) [address] [place], [address], 10/05/2022 18:11:22 10/06/19 23 10/05/2022 CBC/C OMPLE TE BLD COUNT W/DIF F NRBC# 0.00 x10'3 /uL Not Available [facility] (Lab) [address] [place], [address], 10/05/2022 18:11:22 10/06/19 23 10/05/2022 COMPR EHENS SOLO METAB OLIC PANEL sodium 137 mmol/ L 137-14 5 Not Available [facility] (Lab) [address] [place], [address], 10/05/2022 19:16:09 10/06/19 23 10/05/2022 COMPR EHENS SOLO METAB OLIC PANEL potassium 4.4 mmol/ L 3.5-5. 1 Not Available [facility] (Lab) [address] [place], [address], 10/05/2022 19:16:09 10/06/19 23 10/05/2022 COMPR EHENS SOLO METAB OLIC PANEL chloride 103 mmol/ L 98-107 Not Available [facility] (Lab) [address] [place], [address], 10/05/2022 19:16:09 10/06/19 23 10/05/2022 COMPR EHENS SOLO METAB OLIC PANEL carbon dioxide 26 mmol/ L 22-30 Not Available [facility] (Lab) [address] [place], [address], 10/05/2022 19:16:09 10/06/19 23 10/05/2022 COMPR EHENS SOLO METAB OLIC PANEL anion gap 12.4 mmol/ L 14-22 low Not Available [facility] (Lab) [address] [place], [address], 10/05/2022 19:16:10/06/19 23 10/05/2022 COMPR EHENS SOLO METAB OLIC PANEL glucose 98 mg/dL 70-99 Not Available [facility] (Lab) [address] [place], [address], 10/05/2022 19:16:09 10/06/19 23 10/05/2022 COMPR EHENS SOLO METAB OLIC PANEL BUN 14 mg/dL 8-19 Not Available [facility] (Lab) [address] [place], [address], 10/05/2022 19:16:09 10/06/19 23 10/05/2022 COMPR EHENS SOLO METAB OLIC PANEL creatinine 0.86 mg/dL 0.66-1 .25 Not Available [facility] (Lab) [address] [place], [address], 10/05/2022 19:16:10/06/1910/05/2022 COMPR EHENS SOLO METAB OLIC PANEL GFR >60 Refer ence Range : [place] ge GFR Healt hy Adult : >60 [...] calcu lator is avail able on the [facility] websi te: [email or web address] :[email or web address] [email or web address] r_[email or web address] culat or Not Available [facility] (Lab) [address] [place], [address], 10/05/2022 19:16:09 10/06/19 23 10/05/2022 COMPR EHENS SOLO METAB OLIC PANEL alkaline phosphatase 101 U/L 38-126 Not Available [facility] (Lab) [address] [place], [address], 10/05/2022 19:16:09 10/06/1910/05/2022 COMPR EHENS SOLO METAB OLIC PANEL alanine aminotransfe rase 23 U/L 0-35 Not Available [facility] (Lab) [address] [place], [address], 10/05/2022 19:16:09 10/06/19 23 10/05/2022 COMPR EHENS SOLO METAB OLIC PANEL aspartate aminotransfe rase 31 U/L 15-37 Not Available [facility] (Lab) [address] [place], [address], 10/05/2022 19:16:09 10/06/19 23 10/05/2022 COMPR EHENS SOLO METAB OLIC PANEL bilirubin, total 0.50 mg/dL 0.20-1 .30 Not Available [facility] (Lab) [address] [place], [address], 10/05/2022 19:16:09 10/06/19 23 10/05/2022 COMPR EHENS SOLO METAB OLIC PANEL calcium 9.4 mg/dL 8.4-10 .2 Not Available [facility] (Lab) [address] [place], [address], 10/05/2022 19:16:09 10/06/1910/05/2022 COMPR EHENS SOLO METAB OLIC PANEL total protein 7.2 g/dL 6.3-8. 2 Not Available [facility] (Lab) [address] [place], [address], 10/05/2022 19:16:09 10/06/1910/05/2022 COMPR EHENS SOLO METAB OLIC PANEL albumin 4.6 g/dL 3.4-5. 0 Not Available [facility] (Lab) [address] [place], [address], 10/05/2022 19:16:09 10/06/1910/05/2022 COMPR EHENS SOLO METAB OLIC PANEL globulin 2.6 g/dL 2.6-4. 2 Not Available [facility] (Lab) [address] [place], [address], 10/05/2022 19:16:09 10/06/1910/05/2022 COMPR EHENS SOLO METAB OLIC PANEL A/G ratio 1.8 ratio 1.0-2. 0 Not Available [facility] (Lab) [address] [place], [address], 10/05/2022 19:16:09 10/06/1910/05/2022 LIPID PANEL cholesterol 238 mg/dL 140-19 9 high NIH MONI NSUS RECOM MENDA TION FOR ASHER STERO L: ADULT CHILD LOW RISK: <200 <170 BORDE RLINE : <200- 239 ----- HIGH RISK: >240 >200 Not Available [facility] (Lab) [address] [place], [address], 10/05/2022 19:16:12 10/06/1910/05/2022 LIPID PANEL triglyceride s 100 mg/dL 0-150 NIH MONI NSUS REPOR T RECOM MENDA TION FOR TRIGL YCERI JETHRO: ADULT CHILD LOW RISK: <150 ----- BODER LINE: 150-1 99 ----- HIGH RISK: >200 ----- Not Available [facility] (Lab) [address] [place], [address], 10/05/2022 19:16:12 10/06/1910/05/2022 LIPID PANEL HDL cholesterol 77 mg/dL 40- Not Available [facility] (Lab) [address] [place], [address], 10/05/2022 19:16:12 10/06/1910/05/2022 LIPID PANEL LDL cholesterol, [...] WILL NOT BE REPOR ESTHER. Not Available [facility] (Lab) [address] [place], [address], 10/05/2022 19:16:12 10/06/1910/05/2022 T4 FREE free T4 0.82 NG/dL 0.78-2 .19 Not Available [facility] (Lab) [address] [place], [address], 10/05/2022 19:30:30 10/06/1910/05/2022 T3 FREE free T3 3.9 pg/mL 2.77-5 .27 Not Available [facility] (Lab) [address] [place], [address], 10/05/2022 19:30:36 10/06/19 23 10/05/2022 HEMOG LOBIN A1C HA1C 5.5 % 4.0-6. 0 Diabe ilya Carriee jeffry Crite israel: <5.7% Consi stent with absen ce of diabe ilya 5.7-6 .4% Consi stent with incre ased risk for diabe ilya (pred iabet es) >OR=6 .5% Consi stent with diabe ilya REFER ENCE: Diabe ilya Care 2016, 39(Lombardi ppl.1 ):s13 -s22 Not Available [facility] (Lab) [address] [place], [address], 10/05/2022 19:47:01 10/06/19 23 10/05/2022 TSH thyroid-stim ulating hormone 1.370 uIU/m L 0.465- 4.680 Not Available [facility] (Lab) [address] [place], [address], 10/05/2022 19:53:55 Result Notes None recorded. Problems Name Problem SNOMED Code Status Onset Date Resolution Date Notes Provider Name and Address Organization Details Recorded Time Disorder of shoulder 372385381 Active Not Available [facility] 3 07:25:46 Peptic ulcer 49100440 Active Not Available [facility] 3 07:25:46 Chronic obstructive pulmonary disease 35295179 Active Not Available [facility] 3 07:25:46 Constipation 94918223 Active Not Available [facility] 3 07:25:46 Localized, primary osteoarthriti s 359557054 Active Not Available [facility] 3 07:25:46 Partial thickness rotator cuff tear 015463778 Active [facility] 3 07:25:46 Gastroesophag eal reflux disease 313504950 Active Not Available [facility] 3 07:25:46 Dyspnea 335463315 Active Not Available [facility] 3 07:25:46 Shoulder joint pain 882589237 Active Not Available [facility] 3 07:25:46 Cervical spondylosis without myelopathy 817355729 Active Not Available [facility] 3 07:25:46 Persistent cough 403873294 Active Not Available [facility] 3 07:25:46 Dyslipidemia 540462429 Active Not Available [facility] 3 07:25:46 Osteoarthriti s 948559047 Active Not Available [facility] 3 07:25:46 Dysphagia 12769896 Active Not Available [facility] 3 07:25:46 Dyspnea on exertion 84745443 Active Not Available [facility] 3 07:25:47 Cervical spondylosis with myelopathy Active Not Available [facility] 3 07:25:47 Diverticulosi s of colon 180289100 Active Not Available [facility] 3 07:25:47 Neck pain 41399365 Active Not Available [facility] 3 07:25:47 Obesity 473047400 Active 2022 Not Available [facility] 3 07:25:47 Problem Notes None recorded. Procedures Surgical History Date Name Laterality Status Provider Name and Address Organization Details Recorded Time Ankle Surgery completed Not Available [facility] 04/26/2022 13:56:32 Cholecystectomy completed Not Available [facility] 04/26/2022 13:56:32 tonsilectomy/adenoi ds completed Not Available [facility] 04/26/2022 13:56:32 Rotator cuff surgery completed Not Available [facility] 04/26/2022 13:56:32 [facility] 04/26/2022 13:56:32 primary fusion of cervical spine completed Not Available [facility] 04/26/2022 13:56:32 colonoscopy completed Not Available [facility] 04/26/2022 13:56:32 endoscopy completed Not Available [facility] 0 04/26/2022 13:56:32 Imaging Results None recorded. [...] 96 % 0 78 /min 97.1 [degF] 72690.6 6 g Not Available [facility] 3 13:56:54 Date Recorded Body mass index (BMI) Body height Heart rate Body temperature Body weight Systolic blood pressure Diastolic blood pressure Provider Name and Address Organization Details Last Updated DateTime 1 31.2 kg/m2 160.02 cm 78 /min 97 [degF] 19502.2 6 g 126 mm[Hg] 70 mm[Hg] Not Available [facility] 3 13:56:52 Date Recorded Body mass index (BMI) Body height Heart rate Body temperature Body weight Systolic blood pressure Diastolic blood pressure Provider Name and Address Organization Details Last Updated DateTime 1 31.7 kg/m2 160.02 cm 78 /min 98 [degF] 42849.0 3 g 122 mm[Hg] 80 mm[Hg] Not Available [facility] 3 13:56:52 Date Recorded Heart rate Body temperature Body weight Systolic blood pressure Diastolic blood pressure Provider Name and Address Organization Details Last Updated DateTime 3 84 /min 98.4 [degF] 02770.0 7 g 116 mm[Hg] 78 mm[Hg] Not Available [facility] 3 13:56:52 Date Recorded Body weight Heart rate Body temperature Systolic blood pressure Diastolic blood pressure Provider Name and Address Organization Details Last Updated DateTime 3 27708.8 5 g 89 /min 97.7 [degF] 116 mm[Hg] 78 mm[Hg] Quyen Seaman RN [place] - [facility] MD [employer] 3 14:26:30 Social History Question Answer Notes LastModified by Organizat ion Details LastModified Time Tobacco Smoking Status Never Smoker Not Available [facility] 04/26/2022 13:56:28 Do You Have An Advance Directive? Yes MIGRATION.17996 [id number] Information not available 04/26/2022 What Is Your Level Of Alcohol Consumption? Occasional MIGRATION.76097 96475 Information not available 04/26/2022 What Is Your Level Of Caffeine Consumption? Heavy MIGRATION.05452 30005 Information not available 04/26/2022 How Much Tobacco Do You Chew? None MIGRATION.62062 68345 Information not available 04/26/2022 In The 14 Days Before Symptom Onset, Have You Had Close Contact With A Laboratory-confir med COVID-19 While That Case Was Ill? No MIGRATION.69595 93982 Information not available 04/26/2022 In The 14 Days Before Symptom Onset, Have You Had Close Contact With A Person Who Is Under Investigation For COVID-19 While That Person Was Ill? No MIGRATION.94836 10694 Information not available 04/26/2022 Are You Currently Employed? Yes Information not available 10/05/2022 What Type Of Diet Are You Following? REGULAR MIGRATION.19707 74876 Information not available 04/26/2022 Which Illicit Or Recreational Drugs Have You Used? None MIGRATION.24816 50803 Information not available 04/26/2022 Do You Or Have You Ever Used E-cigarettes Or Vape? Never Used Electronic Cigarettes MIGRATION.41097 45372 Information not available 04/26/2022 What Is The Highest Grade Or Level Of School You Have Completed Or The Highest Degree You Have Received? 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 No MIGRATION.25022 41526 Information not available 04/26/2022 What Is The Fluoride Status Of Your Home? Unknown MIGRATION.71299 52874 Information not available 04/26/2022 Are There Any Guns Present In Your Home? Yes MIGRATION.42005 56304 Information not available 04/26/2022 Do You Use Insect Repellent Routinely? No MIGRATION.44256 90790 Information not available 04/26/2022 Where Do You Live? Other MIGRATION.85257 22096 Information not available 04/26/2022 Do You Have A Medical Power Of Accounting Office Manager? Yes MIGRATION.36859 38292 Information not available 04/26/2022 What Was The Date Of Your Most Recent Tobacco Screening? 10/05/2022 Information not available 10/05/2022 Have You Ever Been Counseled For Unhealthy Alcohol Use? No MIGRATION.60653 51576 Information not available 04/26/2022 Do You Have Any Pets? Yes MIGRATION.28989 25542 Information not available 04/26/2022 What Is Your Relationship Status? MIGRATION.17067 28934 Information not available 04/26/2022 Do You Use Your Seat Belt Or Car Seat Routinely? Yes MIGRATION.78489 32267 Information not available 04/26/2022 Do You Have Smoke And Carbon Monoxide Detectors In Your Home? Yes MIGRATION.48946 92711 Information not available 04/26/2022 Are You Passively Exposed To Smoke? Yes MIGRATION.86312 41242 Information not available 04/26/2022 Do You Or Have You Ever Used Smokeless Tobacco? Never Used Smokeless Tobacco MIGRATION.31965 37181 Information not available 04/26/2022 Are There Any Smokers In Your House? Yes Smokes MIGRATION.34801 49763 Information not available 04/26/2022 How Much Tobacco Do You Smoke? No MIGRATION.38825 00348 Information not available 04/26/2022 What Types Of Sporting Activities Do You Participate In? None MIGRATION.78925 10296 Information not available 04/26/2022 Do You Feel Stressed (tense, Restless, Nervous, Or Anxious, Or Unable To Sleep At Night)? [id number] MIGRATION.81374 37866 Information not available 04/26/2022 Do You Use Any Illicit Or Recreational Drugs? No MIGRATION.40415 80365 Information not available 04/26/2022 Do You Use Sunscreen Routinely? Yes MIGRATION.42274 16791 Information not available 04/26/2022 Has Tobacco Cessation Counseling Been Provided? No Not Needed-nev er Smoked MIGRATION.76698 92789 Information not available 04/26/2022 How Many Years Have You Smoked Tobacco? 0 MIGRATION.56780 09874 Information not available 04/26/2022 Have You Recently Traveled Abroad? No MIGRATION.17296 86653 Information not available 04/26/2022 Do You Have Any Dietary Restrictions? No MIGRATION.58804 39778 Information not available 04/26/2022 Do You Or Have You Ever Used Any Other Forms Of Tobacco Or Nicotine? No MIGRATION.47187 85401 Information not available 04/26/2022 Sex: Female Functional Status Question Answer Note LastModified by Organizat ion Details LastModified Time What is your exercise level? Occasional [id number].[id number] 26 Information not available 04/26/2022 Mental Status None recorded. Family History Relationship Description Onset Age of this Age Resolved Age Notes LastModified by Organization Details LastModified Time Father Heart disease [id number] Not available 04/26/2022 13:56:32 Medical History Condition Response BLINDNESS N KIDNEY STONES N MRSA N CARPAL TUNNEL SYNDROME N OTHER # 1 N LUNG DISEASE/DISORDER N HISTORY OF DRUG ABUSE N RADIATION / CHEMOTHERAPY N COPD Y Other # 2 N BLOOD DISEASES N SURGERY N SCHIZOPHRENIA N DEPRESSION (INCLUDING POST ) Y BOWEL PROBLEMS N STROKE/TIA N ULCERS N BENIGN PROSTATIC HYPERPLASIA [...] N AIDS/HIV N FRACTURES N HYPERTENSION N Metal allergy N ANXIETY DISORDER Y BLOOD TRANSFUSION N ANEMIA/BLOOD DISORDER N BIPOLAR DISORDER N BRONCHITIS N OSTEOARTHRITIS N TUBERCULOSIS N FOOT PROBLEM N HEART VALVE DISORDERS N ALLERGIES/HAYFEVER N INFECTIOUS DISEASE N HEART ARRHYTHMIA N INSOMNIA N HIGH CHOLESTEROL / HYPERLIPIDEMIA N RHEUMATOID ARTHRITIS N HYPERTHYROIDISM N NEUROLOGICAL PROBLEMS N EDEMA N CHRONIC PAIN SYNDROME N HYPOTHYROIDISM N CAROTID BLOCKAGE N BACK / NECK PROBLEMS Y HAVE YOU BEEN HOSPITALIZED OR SEEN IN [facility] IN THE PAST YEAR ? N BURSITIS N HERNIATED DISC N DIALYSIS N FIBROMYALGIA N OSTEOPOROSIS N ARTHRITIS Y PERIPHERAL NEUROPATHY N DIABETES, TYPE N HEARTBURN / REFLUX N HEPATITIS / LIVER DISEASE N GOUT N ALZHEIMER'S DISEASE N SLEEP DISORDER N HERPES N HEADACHES/MIGRAINES N SEIZURES/EPILEPSY N VASCULAR DISEASE N Blood Disorder N DIZZINESS N HEAD TRAUMA OR INJURY N HEART DISEASE/HEART PROBLEMS N MULTIPLE SCLEROSIS N CANCER: SPECIFY N CARDIAC ARRHYTHMIA N ANESTHESIA COMPLICATIONS N ATRIAL FIBRILLATION N AUTOIMMUNE DISEASE N Gynecological HistoryNo gynecological history recorded. Obstetrics History GPAL:G 0 P 0 0 0 0 Immunizations Vaccine Type Date Status Note Provider Nam e and Address Organization Details Recorded Time COVID-19 vaccine, vector-nr, rS-ChAdOx1, PF, 0.5 mL 1 completed Not Available [facility] 10/06/2022 07:25:47 Influenza, split virus, trivalent, preservative 5 completed Not Available [facility] 10/06/2022 07:25:47 Past Encounters Encounter ID Performer Location Encounter Start Date Encounter Closed Date Diagnosis/Indication Diagnosis SNOMED-CT Code Diagnosis ICD10 Code Diagnosis Note [id number] Kane Owens MD [facility] Internal Med [place] [facility] [address] [place] [id number] 06/10/2020 00:00:00 06/10/2020 13:22:32 [id number] _ATHN_MIGR ATION_1 _ATHENA_M IGRATION_ DEFAULT_1 _1 , 07/21/2020 00:00:00 07/21/2020 11:33:14 [id number] Kane Owens MD [facility] Internal Med [place] [address] [place] [id number] 10/26/2020 00:00:00 11/01/2020 11:35:31 [id number] Kane Owens MD [facility] Internal Med [place] [address] [facility] [address] , [place] [address] 11/23/2020 00:00:00 11/23/2020 22:33:29 [id number] Kane Owens MD [facility] Internal Med [place] [address] [facility] [address] , [place] [address] 04/06/2022 00:00:00 04/09/2022 17:46:27 [id number] Kane Owens MD [facility] Internal Med [place] [address] [place] [address] y , [place] [address] 10/05/2022 14:17:48 10/05/2022 15:29:52 Dyslipidemia 177280772 E78.5 Obesity 707396816 E66.9 Gastroesop hageal reflux disease 937707684 K21.9 Health Concerns Section Related Observation LastModified by Organization Detai ls LastModified Time None Recorded Concern Status LastModified by Organization Details LastModified Time None Recorded Advance Directives Directive Y: Payers Encounter Date Sequence Insurance Name Policy Number Policy Ahn Covered Member ID Ahn Member ID Guarantor Name 10/05/2022 1 [facility] [employer] [id number] Elpidio Lund [id number] Cynthia Lund Notes Date Note Type Note Provider Name and Address Organization Details Recorded Time 10/05/2022 text/html dyslipidemia tri es to follow low-fat dietobesity unsuccessful with dietGERD no heartburn.Anxiety seems to be stable Kane Owens MD [address] [place] [address] [address], [place], [address], [facility] [email or web address] 12/24/2022 17:26:46 OBGyn Episode No OBEpisode recorded.
--- OUTSIDE RECORDS SUMMARY | 2024-06-28 15:54 | XMS_ITS | Referral Summary ---
Author Organization [facility] Address [address] [place] [address] Care Team Providers Care Tuyere Fitter Name Role Phone Kane Owens MD Primary Care Provider [phone] Encounters Date Type Department Care Team Description 06/26/2024 10:15 AM CDT - 06/26/2024 11:59 PM CDT Hospital Encounter [address] [address] Other abnormal and inconclusive findings on diagnostic imaging of breast Discharge Disposition: Discharge to home or self care 06/26/2024 10:20 AM CDT - 06/26/2024 11:59 PM CDT Hospital Encounter [address] [address] Other abnormal and inconclusive findings on diagnostic imaging of breast Discharge Disposition: Discharge to home or self care 06/20/2024 12:11 PM CDT - 06/20/2024 11:59 PM CDT Hospital Encounter [address] [address] Pleurodynia Discharge Disposition: Discharge to home or self care 06/07/2024 12:11 PM CDT - 06/07/2024 11:59 PM CDT Hospital Encounter [address] [address] Encounter for screening mammogram for malignant neoplasm [...] on file Legal Sex Female 11:55 PM [employer] Gender Identity Not on file Sexual Orientation Not on file Last Filed Vital Signs Vital Sign Reading Time Taken Comments Blood Pressure 121/76 02/26/2024 8:44 PM [employer] Pulse 81 02/26/2024 8:44 PM [employer] Temperature 36.6 C (97.9 F) 02/26/2024 8:44 PM [employer] Respiratory Rate 16 02/26/2024 8:44 PM [employer] Oxygen Saturation 99% 02/26/2024 8:44 PM [employer] Inhaled Oxygen Concentration - - Weight 79.4 kg (175 lb) 02/26/2024 6:16 PM [employer] Height 160 cm (5' 3 ) 02/26/2024 6:16 PM [employer] Body Mass Index 31 02/26/2024 6:16 PM [employer] Plan of Treatment Not on file Medical Devices Implanted Type Area Direct Mail Clerk Device Identifier Shelf Expiration Date Model / Serial / Lot Other-See Comments Other - see comments Right: Ankle Description:Right ankle scre ws and plates Procedures Procedure Name Priority Date/Time Associated Diagnosis Comments US BREAST LEFT LIMITED Schedule Routine, Read Routine (OP Routine) 06/26/2024 11:24 AM CDT Other abnormal and inconclusive findings on diagnostic imaging of breast DIAGNOSTIC MAMMOGRAM LEFT W KIRK Schedule Routine, Read Routine (OP Routine) 06/26/2024 10:29 AM CDT Other abnormal and inconclusive findings on diagnostic imaging of breast XR RIBS LEFT 2 VIEWS Schedule Routine, Read Routine (OP Routine) 06/20/2024 1:06 PM CDT Pleurodynia XR SPINE THORACIC 3 VIEWS Schedule Routine, Read Routine (OP Routine) 06/20/2024 1:06 PM CDT Pleurodynia XR CHEST PA LATERAL 2 VIEWS Schedule Routine, Read Routine (OP Routine) 06/20/2024 1:06 PM CDT Pleurodynia SCREENING MAMMOGRAM BILATERAL W KIRK Schedule Routine, Read Routine (OP Routine) 06/07/2024 12:25 PM CDT Encounter for screening mammogram for malignant neoplasm of breast from Last 3 Months Results * US Breast Left Limited (06/26/2024 11:24 AM CDT) Anatomical Region Laterality Modality Breast Left Ultrasound 06/26/2024 11:4 5 AM CDT Impressions 06/26/2024 11:45 AM CDT 1. No evidence of suspicious left axillary lymphadenopathy on ultrasound. The patient has multiple tattoos on her left upper chest and left upper arm. As such, the high-density material associated a left axillary lymph node on mammogram is most consistent with benign tattoo ink. 2. No mammographic evidence of malignancy in the left breast. Monthly breast self examination and screening mammography in one year are recommended. I discussed these findings and recommendations with the patient at the time of the examination. OVERALL FINAL ASSESSMENT: BI-RADS Category 2: Benign. Electronically signed by: Edin Soliman M.D. Narrative 06/26/2024 11:45 AM CDT EXAMINATION: LEFT UNILATERAL DIGITAL DIAGNOSTIC MAMMOGRAM AND DIGITAL BREAST TOMOSYNTHESIS; LEFT BREAST SONOGRAM HISTORY: 63-year-old female recalled from screening mammogram for an indeterminate finding in the left axilla. COMPARISON: Screening mammogram dated 06/07/2024 TECHNIQUE: Full field digital mammographic views of the LEFT breast were performed, including computer aided detection (CAD) and digital breast tomosynthesis (DBT). Directed ultrasound evaluation of the LEFT breast was performed. BREAST PARENCHYMAL COMPOSITION: The breasts are almost entirely fatty. MAMMOGRAM FINDINGS: High-density material with appearance suggestive of amorphous calcifications is confirmed within a left axillary lymph node. This lymph node appears nonenlarged and morphologically normal on mammogram. Remainder of the visualized left axilla and left breast appear mammographically unremarkable. SONOGRAM FINDINGS: Targeted ultrasound of the left axilla demonstrates no evidence of suspicious lymphadenopathy, with only nonenlarged morphologically lymph node(s) identified. Incidental note is made of a benign intramammary lymph node at the 1 o'clock position of the left breast, 10 cm from the nipple. us Kane Owens MD IMG MAMMO PROCEDURES Final R esult * Diagnostic Mammogram Left W Kirk (06/26/2024 10:29 AM CDT) Anatomical Region Laterality Modality Breast Left Mammography 06/26/2024 11:4 5 AM CDT Impressions 06/26/2024 11:45 AM CDT 1. No evidence of suspicious left axillary lymphadenopathy on ultrasound. The patient has multiple tattoos on her left upper chest and left upper arm. As such, the high-density material associated a left axillary lymph node on mammogram is most consistent with benign tattoo ink. 2. No mammographic evidence of malignancy in the left breast. Monthly breast self examination and screening mammography in one year are recommended. I discussed these findings and recommendations with the patient at the time of the examination. OVERALL FINAL ASSESSMENT: BI-RADS Category 2: Benign. Electronically signed by: Edin Soliman M.D. Narrative 06/26/2024 11:45 AM CDT EXAMINATION: LEFT UNILATERAL DIGITAL DIAGNOSTIC MAMMOGRAM AND DIGITAL BREAST TOMOSYNTHESIS; LEFT BREAST SONOGRAM HISTORY: 63-year-old female recalled from screening mammogram for an indeterminate finding in the left axilla. COMPARISON: Screening mammogram dated 06/07/2024 TECHNIQUE: Full field digital mammographic views of the LEFT breast were performed, including computer aided detection (CAD) and digital breast tomosynthesis (DBT). Directed ultrasound evaluation of the LEFT breast was performed. BREAST PARENCHYMAL COMPOSITION: The breasts are almost entirely fatty. MAMMOGRAM FINDINGS: High-density material with appearance suggestive of amorphous calcifications is confirmed within a left axillary lymph node. This lymph node appears nonenlarged and morphologically normal on mammogram. Remainder of the visualized left axilla and left breast appear mammographically unremarkable. SONOGRAM FINDINGS: Targeted ultrasound of the left axilla demonstrates no evidence of suspicious lymphadenopathy, with only nonenlarged morphologically lymph node(s) identified. Incidental note is made of a benign intramammary lymph node at the 1 o'clock position of the left breast, 10 cm from the nipple. us Kane Owens MD IMG MAMMO PROCEDURES Final R esult * XR Spine Thoracic 3 Vw (06/20/2024 1:06 PM CDT) Anatomical Region Laterality Modality Spine N/A Computed Radiogr aphy 06/22/2024 11:5 6 AM CDT Narrative 06/22/2024 11:59 AM CDT EXAM DESCRIPTION: XR SPINE THORACIC 3 VIEWS; XR RIBS LEFT 2 VIEWS REASON FOR STUDY: rib pain rib pain left Nki left lower posterior back pain FINDINGS: Three views thoracic spine and two views left ribs submitted with comparison 02/25/2021. Thoracic spine: Moderate rotary dextroscoliosis of the thoracic spine is present. Midthoracic wedging is present. No acute fracture identified. Qwil-cp-sgguruuj multilevel thoracic degenerative disc disease. Right upper quadrant surgical clips and cervical degenerative disc disease with fusion and listhesis noted. Left ribs: No acute displaced left-sided rib fractures. Alignment is normal. No evidence of pulmonary contusion or pneumothorax. IMPRESSION: Moderate rotary dextroscoliosis of the thoracic spine with nlpt-cz-gdxnirgs multilevel thoracic degenerative disc disease. No acute displaced left-sided rib fractures. THIS IS AN ELECTRONICALLY VERIFIED FINAL REPORT 06/22/2024 11:59 AM - Electronically signed by Kane Douglas M.D. MF: KIET Report ID: [id number] Reading Location: [id number] Procedure Note Kane Douglas MD - 06/22/2024 EXAM DESCRIPTION: XR SPINE THORACIC 3 VIEWS; XR RIBS LEFT 2 VIEWS REASON FOR STUDY: rib pain rib pain left Nki left lower posterior back pain FINDINGS: Three views thoracic spine and two views left ribs submitted withcomparison 02/25/2021. Thoracic spine: Moderate rotary dextroscoliosis of the thoracic spine is present.Midthoracic wedging is present. No acute fracture identified. Btmo-sd-gwattztf multilevel thoracic degenerative disc disease. Right upper quadrantsurgical clips and cervical degenerative disc disease with fusion and listhesisnoted. Left ribs: No acute displaced left-sided rib fractures. Alignment is normal. No evidence of pulmonary contusion or pneumothorax. IMPRESSION: Moderate rotary dextroscoliosis of the thoracic spine szswowok-rp-xnknmzsv multilevel thoracic degenerative disc disease. No acute displaced left-sided rib fractures. THIS IS AN ELECTRONICALLY VERIFIED FINAL REPORT 06/22/2024 11:59 AM - Electronically signed by Kane Douglas M.D. MF: KIET Report ID: [id number] Reading Location: [id number] Kane Owens MD IMG XR PROCEDURES Final Resu lt * XR Ribs Left 2 Views (06/20/2024 1:06 PM CDT) Anatomical Region Laterality Modality Rib, Chest Left Computed Radiogr aphy 06/22/2024 11:5 6 AM CDT Narrative 06/22/2024 11:59 AM CDT EXAM DESCRIPTION: XR SPINE THORACIC 3 VIEWS; XR RIBS LEFT 2 VIEWS REASON FOR STUDY: rib pain rib pain left Nki left lower posterior back pain FINDINGS: Three views thoracic spine and two views left ribs submitted with comparison 02/25/2021. Thoracic spine: Moderate rotary dextroscoliosis of the thoracic spine is present. Midthoracic wedging is present. No acute fracture identified. Psuu-dz-bpkmllgk multilevel thoracic degenerative disc disease. Right upper quadrant surgical clips and cervical degenerative disc disease with fusion and listhesis noted. Left ribs: No acute displaced left-sided rib fractures. Alignment is normal. No evidence of pulmonary contusion or pneumothorax. IMPRESSION: Moderate rotary dextroscoliosis of the thoracic spine with qqae-ff-kooyergf multilevel thoracic degenerative disc disease. No acute displaced left-sided rib fractures. THIS IS AN ELECTRONICALLY VERIFIED FINAL REPORT 06/22/2024 11:59 AM - Electronically signed by Kane Douglas M.D. MF: KIET Report ID: [id number] Reading Location: [id number] Procedure Note Kane Douglas MD - 06/22/2024 EXAM DESCRIPTION: XR SPINE THORACIC 3 VIEWS; XR RIBS LEFT 2 VIEWS REASON FOR STUDY: rib pain rib pain left Nki left lower posterior back pain FINDINGS: Three views thoracic spine and two views left ribs submitted withcomparison 02/25/2021. Thoracic spine: Moderate rotary dextroscoliosis of the thoracic spine is present.Midthoracic wedging is present. No acute fracture identified. Pjxq-mc-cpkgmcfj multilevel thoracic degenerative disc disease. Right upper quadrantsurgical clips and cervical degenerative disc disease with fusion and listhesisnoted. Left ribs: No acute displaced left-sided rib fractures. Alignment is normal. No evidence of pulmonary contusion or pneumothorax. IMPRESSION: Moderate rotary dextroscoliosis of the thoracic spine ufwlmjek-xs-fvtifzge multilevel thoracic degenerative disc disease. No acute displaced left-sided rib fractures. THIS IS AN ELECTRONICALLY VERIFIED FINAL REPORT 06/22/2024 11:59 AM - Electronically signed by Kane Douglas M.D. MF: KIET Report ID: [id number] Reading Location: [id number] Kane Owens MD IMG XR PROCEDURES Final Resu lt * XR Chest PA Lateral 2 Views (06/20/2024 1:06 PM CDT) Anatomical Region Laterality Modality Body, Chest N/A Computed Radiogr aphy 06/23/2024 11:2 2 PM CDT Narrative 06/23/2024 11:23 PM CDT EXAM DESCRIPTION: XR CHEST PA LATERAL 2 VIEWS REASON FOR STUDY: rib pain Nki left lower posterior pain TECHNIQUE: Frontal and lateral radiographic views of the chest were acquired. COMPARISON: None Available FINDINGS: LUNGS/PLEURA: There is no focal infiltrate or evidence of pneumothorax. No significant pleural effusion. HEART/MEDIASTINUM: The heart size is normal. Normal mediastinal and hilar contours. LINES/TUBES: None. BONES: No acute findings. Scoliotic curvature of the spine. OTHER: No other significant finding. IMPRESSION: No acute cardiopulmonary abnormality. THIS IS AN ELECTRONICALLY VERIFIED FINAL REPORT 06/23/2024 11:23 PM - Electronically signed by Dipak Peñaloza M.D. RW: [email or web address] Report ID: [id number] Reading Location: [id number] Procedure Note Dipak Peñaloza MD - 06/23/2024 EXAM DESCRIPTION: XR CHEST PA LATERAL 2 VIEWS REASON FOR STUDY: rib pain Nki left lower posterior pain TECHNIQUE: Frontal and lateral radiographic views of the chest wereacquired. COMPARISON: None Available FINDINGS: LUNGS/PLEURA: There is no focal infiltrate or evidence of pneumothorax.No significant pleural effusion. HEART/MEDIASTINUM: The heart size is normal. Normal mediastinal and hilar contours. LINES/TUBES: None. BONES: No acute findings. Scoliotic curvature of the spine. OTHER: No other significant finding. IMPRESSION: No acute cardiopulmonary abnormality. THIS IS AN ELECTRONICALLY VERIFIED FINAL REPORT 06/23/2024 11:23 PM - Electronically signed by Dipak Peñaloza M.D. RW: [email or web address] Report ID: [id number] Reading Location: [id number] Kane Owens MD IMG XR PROCEDURES Final Resu lt * (ABNORMAL) Screening Mammogram Bilateral W Kirk [...] R esult from Last 3 Months Insurance [place] [id number] [facility] 9 Advance Directives For more information, please contact: [phone] * Full Code (Latest Code Status on [...] 8:55 AM 01/18/2021 3:27 PM Care Teams Tuyere Fitter Relationship Specialty Start Date End Date Kane Owens MD PCP - General 07/30/20
--- OUTSIDE RECORDS SUMMARY | 2024-06-28 15:54 | XMS_ITS | Encounter Summary ---
Author Organization [facility] Address [address] [place] [address] Care Team Providers Care Event Marketing Assistant Name Role Phone Kane Owens MD Primary Care Provider [phone] Reason for Referral * Diagnostic Imaging (Routine) - Closed Specialty Diagnoses / Procedures Referred By Flor cook Referred To Contact Diagnoses Other abnormal and inconclusive findings on diagnostic imaging of breast Procedures Diagnostic Mammogram Left W Kane Shanks MD [address] [place] [address] Phone: tel: fax: [address] [phone] Referral ID Status Reason Start Date Expiration Date Visits Re quested Visits Authorized [id number] Closed 06/20/2024 07/20/2025 1 1 Reason for Visit * Diagnostic Imaging (Routine) - Closed Specialty Diagnoses / Procedures Referred By Flor cook Referred To Contact Diagnoses Other abnormal and inconclusive findings on diagnostic imaging of breast Procedures Diagnostic Mammogram Left W Kane Shanks MD [address] [place] [address] Phone: tel: fax: [address] [phone] Referral ID Status Reason Start Date Expiration Date Visits Re quested Visits Authorized [id number] Closed 06/20/2024 07/20/2025 1 1 Encounter Details Date Type Department Care Team (Latest Contact Info) Description 06/26/2024 10:15 AM CDT - 06/26/2024 11:59 PM CDT Hospital Encounter [facility] [address] [place] [address] Other abnormal and inconclusive findings on diagnostic imaging of breast Discharge Disposition: Discharge to home or self care Social History Tobacco Use Types Packs/Day Years Used Date Smoking Tobacco: Never Smokeless Tobacco: Never Alcohol Use Standard Drinks/Week Comments No 0 [...] on file Legal Sex Female 11:55 PM [employer] Gender Identity Not on file Sexual Orientation Not on file documented as of this encounter Medications at Time of Discharge albuterol HFA (PROVENTIL HFA,VENTOLIN HFA,PROAIR HFA) 90 mcg/actuation inhaler 2 puffs every 4 (four) hours as needed 04/10/2022 ALPRAZolam (XANAX) 0.5 mg tabletIndication s:Labyrinthitis of both ears Take 0.5-1 tablets (0.25-0.5 mg total) by mouth 3 (three) times a day as needed (To help alleviate vertigo not relieved by meclizine alone) Collaborating physician Hesham Gordillo MD 10 tablet 02/26/2024 buPROPion XL (WELLBUTRIN XL) 150 mg 24 hr tablet Three tablets once daily 12/16/2021 cholecalciferol (VITAMIN D-3) 2000 unit tablet Take 1 tablet (2,000 Units total) by mouth daily 90 tablet 3 05/20/2023 escitalopram (LEXAPRO) 20 mg tabletIndication s:Anxiety with Depression Take 1 tablet (20 mg total) by mouth every morning famotidine (PEPCID) 20 mg tablet Take 1 tablet (20 mg total) by mouth nightly 90 tablet 3 10/24/2023 lamoTRIgine (LaMICtal) 200 mg tabletIndication s:Simple-Partial Epilepsy Take 2 tablets (400 mg total) by mouth nightly LORazepam (ATIVAN) 1 mg tablet Take 1 tablet (1 mg total) by mouth every 8 (eight) hours as needed for anxiety meclizine (ANTIVERT) 25 mg tabletIndication s:Labyrinthitis of both ears,Eustachian tube dysfunction, bilateral Take 1 tablet (25 mg total) by mouth 3 (three) times a day as needed for dizziness Collaborating physician Hesham Gordillo MD 30 tablet 02/26/2024 metoclopramide (REGLAN) 10 mg tablet Take 1 tablet (10 mg total) by mouth daily as needed (nausea) pantoprazole DR (PROTONIX) 40 mg EC tablet Take 1 tablet (40 mg total) by mouth daily 90 tablet 3 06/03/2024 polyethylene glycol (MIRALAX) 17 gram/dose bulk powder Take 1 capful every evening. 595 g 3 07/17/2023 documented as of this encounter Discharge Disposition Disposition Code Departure Means Destination Discharge to home or self care documented in this encounter Plan of Treatment Not on file documented as of this encounter Procedures Procedure Name Priority Date/Time Associated Diagnosis Comments DIAGNOSTIC MAMMOGRAM LEFT W KIRK Schedule Routine, Read Routine (OP Routine) 06/26/2024 10:29 AM CDT Other abnormal and inconclusive findings on diagnostic imaging of breast documented in this encounter Results * Diagnostic Mammogram Left W Kirk (06/26/2024 [...] left breast, 10 cm from the nipple. Kane Owens MD IMG MAMMO PROCEDURES Final R esult documented in this encounter Visit Diagnoses Diagnosis Other abnormal and inconclusive findings on diagnostic imaging of breast documented in this encounter Care Teams Event Marketing Assistant Relationship Specialty Start Date End Date Kane Owens MD PCP - General 07/30/20 documented as of this encounter
--- OUTSIDE RECORDS SUMMARY | 2024-06-28 15:54 | XMS_ITS ---
Author Organization [facility] [employer] Address [address] [place] [address] Care Team Providers Care Freelance Art Director Name Role Phone Kane Owens MD Primary Care Provider Remigio Gabriel Unavailable [phone] REASON FOR VISIT follow-up Medications Medication SIG [...] 50 MCG (2,000 UNIT) TABLET *Reorder from [employer] for eRx and Interaction Alerts* 06/20/2023 Active [...] 06/05/2024 Encounters Encounter Location Date Provider Diagnosis [facility] [address] [place] [address] 06/05/2024 Remigio Romero Encounter for screen ing [...] d/o Provider Name:Remigio lanza, 10/06/2024 02:45:00 PM, [address], [address], [place], [address], Progress Notes * BELLE RAMOS:1960 ( 63 yo F)Acc No.[id number]:06/05/2024 Patient: CHLOE QUINONEZ Provider: DAVID XIAO :1960 A ge:63 Y S ex:Female Date:06/05/2024 Address:[address] [place] [address] , [address], [facility] Pcp:Kane Owens MD Subjective: * Chief Complaints: [...] TABLET , Notes to Pharmacist: *Reorder from [employer] for eRx and Interaction Alerts*, Taking Famotidine [...] NORMAL BP READING DOC F/U NOT RQR, [address]609 BEHAV ASSMT W/SCORE & DOCD/STAND INSTRUMENT, G8752 MOST RECENT SYSTOLIC BP < 140MM HG, G8754 MOST RECENT DIASTOLIC BP < 90MM HG * Follow Up: 4 Months (Reason: f/u bipolar d/o) * Billing Information: * Visit Code: 73056 OFFICE OUTPATIENT VISIT 25 MINUTES DETAILED HISTORY AND EXAM/MODERATE MEDICAL DECISION MAKING. * Procedure Codes: G8783 NORMAL BP READING DOC F/U NOT RQR. 15249 BEHAV ASSMT W/SCORE & DOCD/STAND INSTRUMENT. G8752 MOST RECENT SYSTOLIC BP < 140MM HG. G8754 MOST RECENT DIASTOLIC BP < 90MM HG. * Electronic signature of DAVID Davis on 06/28/2024 at 03:53 PM CDT Sign off status: Pending * Provider: DAVID XIAO Date: 0 06/05/2024 Generated for Kamini logan/Trent/Katherinesmcristina on: 0 06/28/2024 03:53 PM CDT History and Physical Notes * [...]
--- OUTSIDE RECORDS SUMMARY | 2024-06-28 15:54 | XMS_ITS | Patient Health Record ---
Author Organization [facility] As [employer] [facility] Address [address] [place] [address] Care Team Providers Care Ethics Instructor Name Role Phone Kane Owens MD Primary Care Provider UnavailRemigio Hedrick Unavailable [phone] Migration, Provider Unavailable Unavailable Allergies No Known [...] 50 MCG (2,000 UNIT) TABLET *Reorder from [employer] for eRx and Interaction Alerts* 06/20/2023 Active [...] Problem Status W/U Status Risk Notes Problem Bipolar disorder, current episode mixed, unspecified (F31.60) Active confirmed Problem Generalized anxiety disorder (64890485) Generalized anxiety disorder (F41.1) Active confirmed Problem Insomnia 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 (89477563) Insomnia due to other mental disorder (F51.05) Active confirmed Vital Signs Heart Rate 87 /min 06/05/2024 Height-cm 160.02 cm 06/05/2024 Blood pressure diastolic 72 mm Hg 06/05/2024 Weight-kg 73.03 kg 06/05/2024 Height 63.00 in 06/05/2024 Blood pressure systolic 103 mm Hg 06/05/2024 Weight 161 lbs 06/05/2024 BMI 28.52 kg/m2 06/05/2024 Encounters Encounter Location Date Provider Diagnosis [facility] [place] [address] [facility] [address] [place] [address] 06/05/2024 Remigio Romero Encounter for screening for cardiovascular disorders Z13.6 ; Encounter for screening for depression Z13.31 ; Bipolar disorder, current episode mixed, unspecified F31.60 ; Generalized anxiety disorder F41.1 and Insomnia due to other mental disorder F51.05 [facility] [employer] [facility] [address] [facility] [address] [place] [address] 09/19/2023 Remigio Romero Bipolar disorder, current episode mixed, unspecified F31.60 ; Generalized anxiety disorder F41.1 and Insomnia due to other mental disorder F51.05 [facility] [employer] [place] [address] [address] 01/21/2024 Remigio Romero [facility] [address] [place] [address] 01/30/2024 Remigio Romero Hypertension, unspecified type 401.9 ; Bipolar disorder, current episode mixed, unspecified F31.60 ; Generalized anxiety disorder F41.1 and Insomnia due to other mental disorder F51.05 [facility] [address] [place] [address] 05/30/2024 Remigio Romero [facility] [address] [place] [address] 07/14/2023 Provider Migration [facility] [address] [place] [address] 07/15/2023 Provider Migration [facility] [address] [place] [address] 02/18/2024 Remigio Romero [facility] [address] [place] [address] 02/22/2024 Remigio Romero Assessments Encounter Date Diagnosis (ICD Code) Assessment Notes Treatment Notes Treatment Clinical Notes Section Notes 09/19/2023 Bipolar disorder, current episode mixed, unspecified (ICD-10 - F31.60) Pt is stable with no complaints. Medication regimen is working well for her. Pt Seen by PMHNP student Nena Patel I have examined the patient with FIELD TECH Student. It reflects today's encounter and my assessment and treatment plan. 09/19/2023 Generalized anxiety disorder (ICD-10 - F41.1) Continue Lorazepam 0.5 PRN Pt is stable with no complaints. Medication regimen is working well for her. Pt Seen by PMHNP student Nena Patel I have examined the patient with FIELD TECH Student. It reflects today's encounter and my assessment and treatment plan. 01/30/2024 Hypertension, unspecified type (ICD9-CM - 401.9) Pt is stable with no complaints. Medication regimen is working well for her. Pt Seen by PMHNP student Nena Patel I have examined the patient with FIELD TECH Student. It reflects today's encounter and my [...] up in 4 months. 6. Work and Intermediate: - Patient reports work is going well and is counting down to chcf in 2.5 years. Plan: - Encourage patient to continue focusing on work and planning for chcf. - Follow up in 4 months. 06/05/2024 Encounter for screening for cardiovascular disorders (ICD-10 - Z13.6) 06/05/2024 Encounter for screening for depression (ICD-10 - Z13.31) 09/19/2023 Insomnia due to other mental disorder (ICD-10 - F51.05) Pt is stable with no complaints. Medication regimen is working well for her. Pt Seen by PMHNP student Nena Patel I have examined the patient with FIELD TECH Student. It reflects today's encounter and my assessment and treatment plan. 01/30/2024 Bipolar disorder, current episode mixed, unspecified (ICD-10 - F31.60) Pt is stable with no complaints. Medication regimen is working well for her. Pt Seen by PMHNP student Nena Patel I have examined the patient with FIELD TECH Student. It reflects today's encounter and my [...] up in 4 months. 6. Work and Intermediate: - Patient reports work is going well and is counting down to chcf in 2.5 years. Plan: - Encourage patient to continue focusing on work and planning for chcf. - Follow up in 4 months. 01/30/2024 Generalized anxiety disorder (ICD-10 - F41.1) Continue Lorazepam 0.5 PRN Pt is stable with no complaints. Medication regimen is working well for her. Pt Seen by PMHNP student Nena Patel I have examined the patient with FIELD TECH Student. It reflects today's encounter and my [...] up in 4 months. 6. Work and Intermediate: - Patient reports work is going well and is counting down to chcf in 2.5 years. Plan: - Encourage patient to continue focusing on work and planning for chcf. - Follow up in 4 months. 06/05/2024 [...] Patel I have examined the patient with FIELD TECH Student. It reflects today's encounter and my [...] up in 4 months. 6. Work and Intermediate: - Patient reports work is going well and is counting down to chcf in 2.5 years. Plan: - Encourage patient to continue focusing on work and planning for chcf. - Follow up in 4 months. 06/05/2024 Insomnia due to other mental disorder (ICD-10 - F51.05) stable Plan Of Treatment Next Appt Details Provider Name:Remigio lanza, 10/06/2024 02:45:00 PM, [address], [address], [place], [address], Insurance Providers Payer Name Payer Address Payer Phone Subscriber Number Group Number Insured Name Patient Relationship to Insured Coverage Start Date Coverage End Date [facility] [address] [place] [phone] [id number] CHLOE RAMOS Self - patient is the insured Medical (General) History Medical History History ICD Code Problems: Bipolar affective disorder, cu rrent episode mixed Generalized anxiety disorder Insomnia disorder related to another men bushra disorder , Surgical History Surgery Date(Month/Year) Tonsilectomy/adenoids Hysterectomy (26181) Removal of gallbladder (29689)
--- OUTSIDE RECORDS SUMMARY | 2024-06-28 15:54 | XMS_ITS | Clinical Summary ---
Author Organization [facility] Address [address] [place] [address] Care Team Providers Care Upholstery Mechanic Name Role Phone Kane Owens MD Primary Care Provider [phone] Allergies No known active allergies Medications LORazepam [...] Date Type Department Care Team Description 06/26/2024 10:20 AM CDT - 06/26/2024 11:59 PM CDT Hospital Encounter [facility] [address] [place] [address] Other abnormal and inconclusive findings on diagnostic imaging of breast Discharge Disposition: Discharge to home or self care 06/26/2024 10:15 AM CDT - 06/26/2024 11:59 PM CDT Hospital Encounter [facility] [address] [place] [address] Other abnormal and inconclusive findings on diagnostic imaging of breast Discharge Disposition: Discharge to home or self care 06/20/2024 12:11 PM CDT - 06/20/2024 11:59 PM CDT Hospital Encounter [facility] [address] [place] [address] Pleurodynia Discharge Disposition: Discharge to home or self care 06/07/2024 12:11 PM CDT - 06/07/2024 11:59 PM CDT Hospital Encounter [address] [address] Encounter for screening mammogram for malignant neoplasm of breast Discharge Disposition: Discharge to home or self care from Last 3 Months Immunizations Immunization Administration Dates Next Due Hep B Vaccine 06/11/2006 Influenza, Trivalent, IM (V) 12/28/2006 Tdap 03/27/2007 Surgical History Surgery Date [...] 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 Hx Other Medical Bipolar 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 Hx Other Medical 02-PSYCH Asthma Bipolar disorder [...] on file Legal Sex Female 11:55 PM THERMODYNAMICS 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 Gender Identity Not on file Sexual Orientation Not on file Obstetrics History Para Term AB IAB SAB Ectopic Multiple Livin g Live Births 2 2 2 Date Outcome GA Total Labor Labor/2nd/3rd Weight Sex Type Anes PTL Ester A1 A5 Name Clin Term Term Last Filed Vital Signs Vital Sign Reading Time Taken Comments Blood Pressure 121/76 02/26/2024 8:44 PM THERMODYNAMICS PROFESSOR Pulse 81 02/26/2024 8:44 PM THERMODYNAMICS PROFESSOR Temperature 36.6 C (97.9 F) 02/26/2024 8:44 PM THERMODYNAMICS PROFESSOR Respiratory Rate 16 02/26/2024 8:44 PM THERMODYNAMICS PROFESSOR Oxygen Saturation 99% 02/26/2024 8:44 PM THERMODYNAMICS PROFESSOR Inhaled Oxygen Concentration - - Weight 79.4 kg (175 lb) 02/26/2024 6:16 PM THERMODYNAMICS PROFESSOR Height 160 cm (5' 3 ) 02/26/2024 6:16 PM THERMODYNAMICS PROFESSOR Body Mass Index 31 02/26/2024 6:16 PM THERMODYNAMICS PROFESSOR Plan of Treatment Health Maintenance Due Date [...] Completed 06/11/2006 Medical Devices Implanted Type Area Survey Instrument Operator Device Identifier Shelf Expiration Date Model / [...] wedging is present. No acute fracture identified. Opue-lj-uuxxmskt multilevel thoracic degenerative disc disease. Right upper quadrant surgical clips and cervical degenerative disc disease with fusion and listhesis noted. Left ribs: No acute displaced left-sided rib fractures. Alignment is normal. No evidence of pulmonary contusion or pneumothorax. 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 No acute displaced left-sided rib fractures. THIS IS AN ELECTRONICALLY VERIFIED FINAL REPORT 06/22/2024 11:59 AM - Electronically signed by Kane Douglas M.D. MF: [email or web address] Report ID: [id number] Reading Location: [id number] Procedure Note Kane Douglas MD - 06/22/2024 [...] wedging is present. No acute fracture identified. Jjmn-hd-hvidoeta multilevel thoracic degenerative disc disease. Right upper quadrantsurgical clips and cervical degenerative disc disease with fusion and listhesisnoted. Left ribs: No acute displaced left-sided rib fractures. Alignment is normal. No evidence of pulmonary contusion or pneumothorax. 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 No acute displaced left-sided rib fractures. THIS IS AN ELECTRONICALLY VERIFIED FINAL REPORT 06/22/2024 11:59 AM - Electronically signed by Kane Douglas M.D. MF: [email or web address] Report ID: [id number] Reading Location: [place] [address] [place] Kane Owens MD IMG XR PROCEDURES [...] wedging is present. No acute fracture identified. Myko-eg-hdugpziw multilevel thoracic degenerative disc disease. Right upper quadrant surgical clips and cervical degenerative disc disease with fusion and listhesis noted. Left ribs: No acute displaced left-sided rib fractures. Alignment is normal. No evidence of pulmonary contusion or pneumothorax. 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 No acute displaced left-sided rib fractures. THIS IS AN ELECTRONICALLY VERIFIED FINAL REPORT 06/22/2024 11:59 AM - Electronically signed by Kane SANTA: KIET Report ID: [id number] Reading Location: [id number] Procedure Note Kane Douglas MD - 06/22/2024 [...] wedging is present. No acute fracture identified. Xlng-wt-mrqzizhz multilevel thoracic degenerative disc disease. Right upper quadrantsurgical clips and cervical degenerative disc disease with fusion and listhesisnoted. Left ribs: No acute displaced left-sided rib fractures. Alignment is normal. No evidence of pulmonary contusion or pneumothorax. 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 No acute displaced left-sided rib fractures. THIS IS AN ELECTRONICALLY VERIFIED FINAL REPORT 06/22/2024 11:59 AM - Electronically signed by Kane Douglas M.D. MF: [email or web address] Report ID: [id number] Reading Location: [id number] us Kane Owens MD IMG XR PROCEDURES [...] Dipak Peñaloza M.D. RW: YASMIN Report ID: [id number] Reading Location: [id number] Procedure Note Dipak Peñaloza MD - 06/23/2024 [...] Dipak Peñaloza M.D. RW: YASMIN Report ID: [id number] Reading Location: [id number] Kane Owens MD IMG XR PROCEDURES Final [...] R esult from Last 3 Months Insurance [place] [id number] [place] [id number] Advance Directives For more information, please contact: [phone] * Full Code (Latest Code Status on [...] 8:55 AM 01/18/2021 3:27 PM Care Teams Upholstery Mechanic Relationship Specialty Start Date End Date Kane Owens MD PCP - General 07/30/20
--- OUTSIDE RECORDS SUMMARY | 2024-06-28 15:54 | XMS_ITS | Encounter Summary ---
Author Organization [facility] Address [address] [place] [address] Care Team Providers Care Heating Equipment Repairer Name Role Phone Kane Owens MD Primary Care Provider [phone] Reason for Referral * Diagnostic Imaging (Routine) - Pending Review Specialty Diagnoses / Procedures Referred By Flor cook Referred To Contact Diagnoses Other abnormal and inconclusive findings on diagnostic imaging of breast Procedures US Breast Left Limited Kane Owens MD [address] [place] [address] Phone: tel: fax: [address] [address] Referral ID Status Reason Start Date Expiration Date V isits Requested Visits Authorized [id number] Pending Review 06/20/2024 07/20/2025 1 1 Reason for Visit * Diagnostic Imaging (Routine) - Pending Review Specialty Diagnoses / Procedures Referred By Flor cook Referred To Contact Diagnoses Other abnormal and inconclusive findings on diagnostic imaging of breast Procedures US Breast Left Limited Kane Owens MD [address] [place] [address] Phone: tel: fax: [address] [address] Referral ID Status Reason Start Date Expiration Date V isits Requested Visits Authorized [id number] Pending Review 06/20/2024 07/20/2025 1 1 Encounter Details Date Type Department Care Team (Latest Contact Info) Description 06/26/2024 10:20 AM CDT - 06/26/2024 11:59 PM CDT Hospital Encounter [facility] [address] [place] [address] Other abnormal and inconclusive findings on diagnostic [...] on file Legal Sex Female 11:55 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
== END 2024-06-28 09:00 | disposition home or self-care (01) ==
PROVIDERS: PCP Internal Medicine
DX: M54.6 Pain in thoracic spine (principal); J44.9 Chronic obstructive pulmonary disease, unspecified; Z79.899 Other long term (current) drug therapy
CPT/HCPCS: 96372; 99213; G0463; J2919

== ENCOUNTER 2024-07-12 08:34 | Emergency (ER) | payer OTHER, SELFPAY ==
--- OUTSIDE RECORDS SUMMARY | 2024-07-12 08:36 | XMS_ITS | Clinical Summary ---
Author Organization [employer] [address] [facility] Address [address] [place] [address] Care Team Providers Care Apprentice Jockey Name Role Phone Kane Owens MD Primary Care Provider [phone] Medications brexpiprazole (REXULTI) 2 mg Tablet Take [...] (1 - 1-dose 75+ series) 2036 Insurance [facility] [address] [place], [place] [id number] [place] [address] Care Teams Apprentice Jockey Relationship Specialty Start Date End Date Kane Owens MD [address] [place] [phone] PCP - General Internal Medicine 05/29/18
--- OUTSIDE RECORDS SUMMARY | 2024-07-12 08:36 | XMS_ITS | Data Portability ---
Author Organization [place] - [facility] [employer], Main Office Address [address] [place] [address] Assessment Encounter Date Assessment Date Assessment LastModified by Organization Details LastModified Time 10/05/2022 10/05/2022 Blood work G LP 1 for obesity Follow-up in 4 weeks or 4 months depending upon she whether she gets to GLP 1 Regular exercise [id number] Not available 12/24/2022 17:25:06 Plan of Treatment [...] mL subcutaneou s pen injector 2022 023 [id number] [id number], [address], [place], [place], [id number], 16:54:25 Patient TargetsNo targets recorded. Patient InstructionsNo instructions recorded. Reason for Referral None Reported. Results Created Date Observation Date Name Description Value Unit Range Abnormal Flag Note LastModifiedBy Organization Detail LastModifiedTime 10/06/1910/05/2022 CBC/C OMPLE TE BLD COUNT W/DIF F white blood cells 5.3 x10'3 /uL 4.2-10 .8 Not Available [facility] (Lab) [address] [place], [address], 10/05/2022 18:11:22 10/06/1910/05/2022 CBC/C OMPLE TE BLD COUNT W/DIF F red blood cells 4.45 x10'6 /uL 3.80-5 .20 Not Available [facility] (Lab) [address] [place], [address], 10/05/2022 18:11:22 10/06/1910/05/2022 CBC/C OMPLE TE BLD COUNT W/DIF F hemoglobin 13.0 g/dL 12.0-1 5.6 Not Available [facility] (Lab) [address] [place], [address], 10/05/2022 18:11:22 10/06/1910/05/2022 CBC/C OMPLE TE BLD COUNT W/DIF F hematocrit 38.8 % 35.7-4 5.7 Not Available [facility] (Lab) [address] [place], [address], 10/05/2022 18:11:22 10/06/19 23 10/05/2022 CBC/C OMPLE TE BLD COUNT W/DIF F mean red cell volume 87.2 fL 82.0-9 9.0 Not Available [facility] (Lab) [address] [place], [address], 10/05/2022 18:11:22 10/06/19 23 10/05/2022 CBC/C OMPLE TE BLD COUNT W/DIF F mean red cell hemoglobin 29.2 pg 27.0-3 3.0 Not Available [facility] (Lab) [address] [place], [address], 10/05/2022 18:11:22 10/06/19 23 10/05/2022 CBC/C OMPLE TE BLD COUNT W/DIF F mean RBC HGB concentratio n 33.5 g/dL 31.0-3 6.0 Not Available [facility] (Lab) [address] [place], [address], 10/05/2022 18:11:22 10/06/19 23 10/05/2022 CBC/C OMPLE TE BLD COUNT W/DIF F red cell distribution width 11.7 % 11.8-1 5.5 low Not Available [facility] (Lab) [address] [place], [address], 10/05/2022 18:11:22 10/06/19 23 10/05/2022 CBC/C OMPLE TE BLD COUNT W/DIF F platelets 331 x10'3 /uL 150-40 0 Not Available [facility] (Lab) [address] [place], [address], 10/05/2022 18:11:22 10/06/19 23 10/05/2022 CBC/C OMPLE TE BLD COUNT W/DIF F mean platelet volume 9.3 fL 9.0-12 .4 Not Available [facility] (Lab) [address] [place], [address], 10/05/2022 18:11:22 10/06/19 23 10/05/2022 CBC/C OMPLE TE BLD COUNT W/DIF F neutrophils 52.4 % 39.0-7 2.0 Not Available [facility] (Lab) [address] [place], [address], 10/05/2022 18:11:22 10/06/19 23 10/05/2022 CBC/C OMPLE TE BLD COUNT W/DIF F lymphocytes 37.2 % 16.0-4 7.0 Not Available [facility] (Lab) [address] [place], [address], 10/05/2022 18:11:22 10/06/19 23 10/05/2022 CBC/C OMPLE TE BLD COUNT W/DIF F monocytes 7.2 % 5.0-12 .0 Not Available [facility] (Lab) [address] [place], [address], 10/05/2022 18:11:22 10/06/19 23 10/05/2022 CBC/C OMPLE TE BLD COUNT W/DIF F eosinophils 1.7 % 1.0-7. 0 Not Available [facility] (Lab) [address] [place], [address], 10/05/2022 18:11:22 10/06/19 23 10/05/2022 CBC/C OMPLE TE BLD COUNT W/DIF F basophils 0.9 % 0.0-2. 0 Not Available [facility] (Lab) [address] [place], [address], 10/05/2022 18:11:22 10/06/19 23 10/05/2022 CBC/C OMPLE TE BLD COUNT W/DIF F immature granulocytes 0.6 % 0.00-0 .50 high Not Available [facility] (Lab) [address] [place], [address], 10/05/2022 18:11:22 10/06/19 23 10/05/2022 CBC/C OMPLE TE BLD COUNT W/DIF F neutrophils, absolute count 2.77 x10'3 /uL 1.5-8. 0 Not Available [facility] (Lab) [address] [place], [address], 10/05/2022 18:11:22 10/06/19 23 10/05/2022 CBC/C OMPLE TE BLD COUNT W/DIF F lymphocytes, absolute count 1.97 x10'3 /uL 1.07-3 .43 Not Available [facility] (Lab) [address] [place], [address], 10/05/2022 18:11:22 10/06/19 23 10/05/2022 CBC/C OMPLE TE BLD COUNT W/DIF F monocytes, absolute count 0.38 x10'3 /uL 0.29-0 .99 Not Available [facility] (Lab) [address] [place], [address], 10/05/2022 18:11:22 10/06/19 23 10/05/2022 CBC/C OMPLE TE BLD COUNT W/DIF F eosinophils, absolute count 0.09 x10'3 /uL 0.02-0 .53 Not Available [facility] (Lab) [address] [place], [address], 10/05/2022 18:11:22 10/06/19 23 10/05/2022 CBC/C OMPLE TE BLD COUNT W/DIF F basophils, absolute count 0.05 x10'3 /uL 0.01-0 .08 Not Available [facility] (Lab) [address] [place], [address], 10/05/2022 18:11:22 10/06/19 23 10/05/2022 CBC/C OMPLE TE BLD COUNT W/DIF F immature granulocytes ,absolute 0.03 x10'3 /uL 0.00-0 .05 Not Available [facility] (Lab) [address] [place], [address], 10/05/2022 18:11:22 10/06/19 23 10/05/2022 CBC/C OMPLE TE BLD COUNT W/DIF F nucleated red blood cells 0.0 % -0 Not Available [facility] (Lab) [address] [place], [address], 10/05/2022 18:11:22 10/06/19 23 10/05/2022 CBC/C OMPLE TE BLD COUNT W/DIF F NRBC# 0.00 x10'3 /uL Not Available [facility] (Lab) [address] [place], [address], 10/05/2022 18:11:22 10/06/19 23 10/05/2022 COMPR EHENS SOLO METAB OLIC PANEL sodium 137 mmol/ L 137-14 5 Not Available [facility] (Lab) [address] [place], [address], 10/05/2022 19:16:09 10/06/19 23 10/05/2022 COMPR EHENS SOLO METAB OLIC PANEL potassium 4.4 mmol/ L 3.5-5. 1 Not Available [facility] (Lab) [address] [place], [address], 10/05/2022 19:16:09 10/06/19 23 10/05/2022 COMPR EHENS SOLO METAB OLIC PANEL chloride 103 mmol/ L 98-107 Not Available [facility] (Lab) [address] [place], [address], 10/05/2022 19:16:09 10/06/19 23 10/05/2022 COMPR EHENS SOLO METAB OLIC PANEL carbon dioxide 26 mmol/ L 22-30 Not Available [facility] (Lab) [address] [place], [address], 10/05/2022 19:16:09 10/06/19 23 10/05/2022 COMPR EHENS SOLO METAB OLIC PANEL anion gap 12.4 mmol/ L 14-22 low Not Available [facility] (Lab) [address] [place], [address], 10/05/2022 19:16:09 10/06/19 23 10/05/2022 COMPR EHENS SOLO METAB OLIC PANEL glucose 98 mg/dL 70-99 Not Available [facility] (Lab) [address] [place], [address], 10/05/2022 19:16:09 10/06/19 23 10/05/2022 COMPR EHENS SOLO METAB OLIC PANEL BUN 14 mg/dL 8-19 Not Available [facility] (Lab) [address] [place], [address], 10/05/2022 19:16:09 10/06/19 23 10/05/2022 COMPR EHENS SOLO METAB OLIC PANEL creatinine 0.86 mg/dL 0.66-1 .25 Not Available [facility] (Lab) [address] [place], [address], 10/05/2022 19:16:10/06/1910/05/2022 COMPR EHENS SOLO METAB OLIC PANEL GFR >60 Refer ence Range : [place] ge GFR Healt hy Adult : >60 [...] calcu lator is avail able on the [facility] websi te: [email or web address] :[email or web address]/kdo [email or web address]/gf r_cal culat or Not Available [facility] (Lab) [address] [place], [address], 10/05/2022 19:16:09 10/06/19 23 10/05/2022 COMPR EHENS SOLO METAB OLIC PANEL alkaline phosphatase 101 U/L 38-126 Not Available [facility] (Lab) [address] [place], [address], 10/05/2022 19:16:09 10/06/1910/05/2022 COMPR EHENS SOLO METAB OLIC PANEL alanine aminotransfe rase 23 U/L 0-35 Not Available [facility] (Lab) [address] [place], [address], 10/05/2022 19:16:09 10/06/19 23 10/05/2022 COMPR EHENS SOLO METAB OLIC PANEL aspartate aminotransfe rase 31 U/L 15-37 Not Available [facility] (Lab) [address] [place], [address], 10/05/2022 19:16:09 10/06/19 23 10/05/2022 COMPR EHENS SOLO METAB OLIC PANEL bilirubin, total 0.50 mg/dL 0.20-1 .30 Not Available [facility] (Lab) [address] [place], [address], 10/05/2022 19:16:09 10/06/19 23 10/05/2022 COMPR EHENS SOLO METAB OLIC PANEL calcium 9.4 mg/dL 8.4-10 .2 Not Available [facility] (Lab) [address] [place], [address], 10/05/2022 19:16:09 10/06/1910/05/2022 COMPR EHENS SOLO METAB OLIC PANEL total protein 7.2 g/dL 6.3-8. 2 Not Available [facility] (Lab) [address] [place], [address], 10/05/2022 19:16:09 10/06/1910/05/2022 COMPR EHENS SOLO METAB OLIC PANEL albumin 4.6 g/dL 3.4-5. 0 Not Available [facility] (Lab) [address] [place], [address], 10/05/2022 19:16:09 10/06/1910/05/2022 COMPR EHENS SOLO METAB OLIC PANEL globulin 2.6 g/dL 2.6-4. 2 Not Available [facility] (Lab) [address] [place], [address], 10/05/2022 19:16:09 10/06/1910/05/2022 COMPR EHENS SOLO METAB OLIC PANEL A/G ratio 1.8 ratio 1.0-2. 0 Not Available [facility] (Lab) [address] [place], [address], 10/05/2022 19:16:09 10/06/1910/05/2022 LIPID PANEL cholesterol 238 mg/dL 140-19 9 high NIH MONI NSUS RECOM MENDA TION FOR ASHER STERO L: ADULT CHILD LOW RISK: <200 <170 BORDE RLINE : <200- 239 ----- HIGH RISK: >240 >200 Not Available [facility] (Lab) [address] [place], [address], 10/05/2022 19:16:12 10/06/1910/05/2022 LIPID PANEL triglyceride s 100 mg/dL 0-150 NIH MONI NSUS REPOR T RECOM MENDA TION FOR TRIGL YCERI JETHRO: ADULT CHILD LOW RISK: <150 ----- BODER LINE: 150-1 99 ----- HIGH RISK: >200 ----- Not Available [facility] (Lab) [address] [place], [address], 10/05/2022 19:16:12 10/06/1910/05/2022 LIPID PANEL HDL cholesterol 77 mg/dL 40- Not Available [facility] (Lab) [address] [place], [address], 10/05/2022 19:16:12 10/06/1910/05/2022 LIPID PANEL LDL cholesterol, [...] WILL NOT BE REPOR ESTHER. Not Available [facility] (Lab) [address] [place], [address], 10/05/2022 19:16:12 10/06/1910/05/2022 T4 FREE free T4 0.82 NG/dL 0.78-2 .19 Not Available [facility] (Lab) [address] [place], [address], 10/05/2022 19:30:30 10/06/1910/05/2022 T3 FREE free T3 3.9 pg/mL 2.77-5 .27 Not Available [facility] (Lab) [address] [place], [address], 10/05/2022 19:30:36 10/06/1910/05/2022 HEMOG LOBIN A1C HA1C 5.5 % 4.0-6. 0 Diabe ilya Carriee jeffry Crite israel: <5.7% Consi stent with absen ce of diabe ilya 5.7-6 .4% Consi stent with incre ased risk for diabe ilya (pred iabet es) >OR=6 .5% Consi stent with diabe ilya REFER ENCE: Diabe ilya Care 2016, 39(Lombardi ppl.1 ):s13 -s22 Not Available [facility] (Lab) [address] [place], [address], 10/05/2022 19:47:01 10/06/19 23 10/05/2022 TSH thyroid-stim ulating hormone 1.370 uIU/m L 0.465- 4.680 Not Available [facility] (Lab) [address] [place], [address], 10/05/2022 19:53:55 Result Notes None recorded. Problems Name Problem SNOMED Code Status Onset Date Resolution Date Notes Provider Name and Address Organization Details Recorded Time Disorder of shoulder 631238823 Active Not Available [facility] 3 07:25:46 Peptic ulcer 83038694 Active Not Available [facility] 3 07:25:46 Chronic obstructive pulmonary disease 58319436 Active Not Available [facility] 3 07:25:46 Constipation 79203783 Active Not Available [facility] 3 07:25:46 Localized, primary osteoarthriti s 719085959 Active Not Available [facility] 3 07:25:46 Partial thickness rotator cuff tear 089739975 Active Not Available [facility] 3 07:25:46 Gastroesophag eal reflux disease 174334427 Active Not Available [facility] 3 07:25:46 Dyspnea 598365816 Active [facility] Available [facility] 3 07:25:46 Shoulder joint pain 503284101 Active Not Available [facility] 3 07:25:46 Cervical spondylosis without myelopathy 395432848 Active Not Available [facility] 3 07:25:46 Persistent cough 149543662 Active Not Available [facility] 3 07:25:46 Dyslipidemia 101033776 Active Not Available [facility] 3 07:25:46 Osteoarthriti s 462616443 Active Not Available [facility] 3 07:25:46 Dysphagia 33355678 Active Not Available [facility] 3 07:25:46 Dyspnea on exertion 00801268 Active Not Available [facility] 3 07:25:47 Cervical spondylosis with myelopathy Active Not Available [facility] 3 07:25:47 Diverticulosi s of colon 182467084 Active Not Available [facility] 3 07:25:47 Neck pain 28825256 Active Not Available [facility] 3 07:25:47 Obesity 096572319 Active 2022 Not Available [facility] 3 07:25:47 Problem Notes None recorded. Procedures Surgical History Date Name Laterality Status Provider Name and Address Organization Details Recorded Time Ankle Surgery completed Not Available [facility] 04/26/2022 13:56:32 Cholecystectomy completed Not Available [facility] 04/26/2022 13:56:32 tonsilectomy/adenoi ds completed Not Available [facility] 04/26/2022 13:56:32 Rotator cuff surgery completed Not Available [facility] 04/26/2022 13:56:32 [facility]ste[facility] completed [facility] 04/[facility] 13:56:32 primary fusion of cervical spine completed Not Available [facility] 04/26/2022 13:56:32 colonoscopy completed Not Available [facility] 04/26/2022 13:56:32 endoscopy completed Not Available [facility] 0 04/26/2022 13:56:32 Imaging Results None [...] saturation in Arterial blood by Pulse oximetry Heart rate Body temperature Body weight Provider Name and Address Organization Details Last Updated DateTime 1 31 kg/m2 160.02 cm 96 % 96 % 78 /min 97.1 [degF] 27871.6 6 g Not Available [facility] 3 13:56:54 Date Recorded Body mass index (BMI) Body height Heart rate Body temperature Body weight Systolic blood pressure Diastolic blood pressure Provider Name and Address Organization Details Last Updated DateTime 1 31.2 kg/m2 160.02 cm 78 /min 97 [degF] 11572.2 6 g 126 mm[Hg] 70 mm[Hg] Not Available [facility] 3 13:56:52 Date Recorded Body mass index (BMI) Body height Heart rate Body temperature Body weight Systolic blood pressure Diastolic blood pressure Provider Name and Address Organization Details Last Updated DateTime 1 31.7 kg/m2 160.02 cm 78 /min 98 [degF] 79012.0 3 g 122 mm[Hg] 80 mm[Hg] Not Available [facility] 3 13:56:52 Date Recorded Heart rate Body temperature Body weight Systolic blood pressure Diastolic blood pressure Provider Name and Address Organization Details Last Updated DateTime 3 84 /min 98.4 [degF] 72262.0 7 g 116 mm[Hg] 78 mm[Hg] Not Available [facility] 3 13:56:52 Date Recorded Body weight Heart rate Body temperature Systolic blood pressure Diastolic blood pressure Provider Name and Address Organization Details Last Updated DateTime 3 00710.8 5 g 89 /min 97.7 [degF] 116 mm[Hg] 78 mm[Hg] Quyen Seaman RN [place] [facility] 3 14:26:30 Social History Question Answer Notes LastModified by Organizat ion Details LastModified Time Tobacco Smoking Status Never Smoker Not Available [facility] 04/26/2022 13:56:28 Do You Have An Advance Directive? Yes [id number] Information not available 04/26/2022 What Is Your Level Of Caffeine Consumption? Heavy [id number].[id number] Information not available 04/26/2022 How Much Tobacco Do You Chew? None [id number].[id number] Information not available 04/26/2022 In The 14 Days Before Symptom Onset, Have You Had Close Contact With A Laboratory-confir med COVID-19 While That Case Was Ill? No [id number] Information not available 04/26/2022 In The 14 Days Before Symptom Onset, Have You Had Close Contact With A Person Who Is Under Investigation For COVID-19 While That Person Was Ill? No [id number] Information not available 04/26/2022 What Type Of Diet Are You Following? REGULAR [id number].[id number] Information not available 04/26/2022 Which Illicit Or Recreational Drugs Have You Used? None [id number].[id number] Information not available 04/26/2022 What Is The Highest Grade Or Level Of School You Have Completed Or The Highest Degree You Have Received? [id number] Information not available 04/26/2022 Have There Been Any Changes To Your Family Or Social Situation? No [id number].[id number] Information not available 04/26/2022 What Is The Fluoride Status Of Your Home? Unknown MIGRATION.[id number] 5048 Information not available 04/26/2022 Are There Any Guns Present In Your Home? Yes [id number] 1966 Information not available 04/26/2022 Do You Use Insect Repellent Routinely? No [id number] 8626 Information not available 04/26/2022 Where Do You Live? Other [id number].[id number] Information not available 04/26/2022 Do You Have A Medical Power Of Sanding Line Operator? Yes [id number] 0082 Information not available 04/26/2022 What Was The Date Of Your Most Recent Toba [id number]|2024-07-12 08:36:00|2024-07-12 08:36:00|XMS_ITS|BKG DAEMON|External Medical Summaries|[id number]|" Patient Health Record Created on: July 12, 2024 CYNTHIA LUND : 1960 Sex: Female Author Organization [facility] [employer] Address 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 Name Role Phone Kane Owens MD Primary Care Provider Unavaila Remigio Arias Unavailable [phone] Migration, Provider Unavailable Unavailable Allergies No Known [...] Active Polyethylene Glycol 3350 Oral 06/20/2023 Active Vraylar 1.5 mg 1 capsule Oral Once a day for 90 days Active lamoTRIgine 200 MG 2 tablets Oral Once a day for 90 days Active VITAMIN D3 50 MCG (2,000 UNIT) TABLET *[facility] e[facility] and Interaction Alerts* 06/20/2023 Active Escitalopram Oxalate 20 MG 1 tablet Oral Once a day for 90 days Active Immunizations Vaccine Route Administration Date Status Comme nts Influenza, seasonal, injecta ble, preservative free, 3 yrs and above Unknown 03/17/2014 Administered Sandra Covid-19 Vaccine Unknown 10/01/2020 Administere d Social History Sex Assigned At : Social History Observation Description Sex Assigned At Female Problems Problem Type SNOMED Code ICD Code Onset Dates Problem Status W/U Status Risk Notes Problem Mixed bipolar I disorder (32518320) Bipolar disorder, current episode mixed, unspecified (F31.60) Active confirmed Problem Generalized anxiety disorder (76452488) Generalized anxiety disorder (F41.1) Active confirmed Problem Insomnia 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 (29216517) Insomnia due to other mental disorder (F51.05) Active confirmed Vital Signs Heart Rate 87 /min 06/05/2024 Height-cm 160.02 cm 06/05/2024 Blood pressure diastolic 72 mm Hg 06/05/2024 Weight-kg 73.03 kg 06/05/2024 Height 63.00 in 06/05/2024 Blood pressure systolic 103 mm Hg 06/05/2024 Weight 161 lbs 06/05/2024 BMI 28.52 kg/m2 06/05/2024 Encounters Encounter Location Date Provider Diagnosis [facility] [employer] [facility] [address] [place] [address] 09/19/2023 Remigio Romero Bipolar disorder, current episode mixed, unspecified F31.60 ; Generalized anxiety disorder F41.1 and Insomnia due to other mental disorder F51.05 [facility] [employer] [facility] [address] [place] [address] 01/21/2024 Remigio Romero [facility] [employer] [facility] [address] [place] [address] 01/30/2024 Remigioluis Romero Hypertension, unspecified type 401.9 ; Bipolar disorder, current episode mixed, unspecified F31.60 ; Generalized anxiety disorder F41.1 and Insomnia due to other mental disorder F51.05 [place] [address] [facility] [address] [place] [address] 05/30/2024 Remigioluis [place] [facility], [facility] [address] [address] 06/05/2024 Remigioluis Romero Encounter for screening for cardiovascular disorders Z13.6 ; Encounter for screening for depression Z13.31 ; Bipolar disorder, current episode mixed, unspecified F31.60 ; Generalized anxiety disorder F41.1 and Insomnia due to other mental disorder F51.05 [place] [address] [address] 07/14/2023 [facility] [address] [address] 07/15/2023 Provider Migration [place] [address] [address] 02/18/20[facility] [address] [address] 02/22/2024 [place] [address] [address] 07/10/2024 Remigioluis Romero Bipolar disorder, current episode mixed, unspecified F31.60 Assessments Encounter Date Diagnosis (ICD Code) Assessment Notes Treatment Notes Treatment Clinical Notes Section Notes 09/19/2023 Bipolar disorder, current episode mixed, unspecified (ICD-10 - F31.60) Pt is stable with no complaints. Medication regimen is working well for her. Pt Seen by PMHNP student Nena Patel I have examined the patient with [employer] Student. It reflects today's encounter and my assessment and treatment plan. 09/19/2023 Generalized anxiety disorder (ICD-10 - F41.1) Continue Lorazepam 0.5 PRN Pt is stable with no complaints. Medication regimen is working well for her. Pt Seen by PMHNP student Nena Patel I have examined the patient with [employer] Student. It reflects today's encounter and my assessment and treatment plan. 01/30/2024 Hypertension, unspecified type (ICD9-CM - 401.9) Pt is stable with no complaints. Medication regimen is working well for her. Pt Seen by PMHNP student Nena Patel I have examined the patient with [employer] Student. It reflects today's encounter and my [...] up in 4 months. 6. Work and Custodial: - Patient reports work is going well and is counting down to correction in 2.5 years. Plan: - Encourage patient to continue focusing on work and planning for correction. - Follow up in 4 months. 06/05/2024 Encounter for screening for cardiovascular disorders (ICD-10 - Z13.6) 07/10/2024 Bipolar disorder, current episode mixed, unspecified (ICD-10 - F31.60) 06/05/2024 Encounter for screening for depression (ICD-10 - Z13.31) 09/19/2023 Insomnia due to other mental disorder (ICD-10 - F51.05) Pt is stable with no complaints. Medication regimen is working well for her. Pt Seen by PMHNP student Nena Patel I have examined the patient with [employer] Student. It reflects today's encounter and my assessment and treatment plan. 01/30/2024 Bipolar disorder, current episode mixed, unspecified (ICD-10 - F31.60) Pt is stable with no complaints. Medication regimen is working well for her. Pt Seen by PMHNP student Nena Patel I have examined the patient with [employer] Student. It reflects today's encounter and my [...] up in 4 months. 6. Work and Custodial: - Patient reports work is going well and is counting down to correction in 2.5 years. Plan: - Encourage patient to continue focusing on work and planning for correction. - Follow up in 4 months. 01/30/2024 Generalized anxiety disorder (ICD-10 - F41.1) Continue Lorazepam 0.5 PRN Pt is stable with no complaints. Medication regimen is working well for her. Pt Seen by PMHNP student Nena Patel I have examined the patient with [employer] Student. It reflects today's encounter and my [...] up in 4 months. 6. Work and Custodial: - Patient reports work is going well and is counting down to correction in 2.5 years. Plan: - Encourage patient to continue focusing on work and planning for correction. - Follow up in 4 months. 06/05/2024 [...] Patel I have examined the patient with [employer] Student. It reflects today's encounter and my [...] up in 4 months. 6. Work and Custodial: - Patient reports work is going well and is counting down to correction in 2.5 years. Plan: - Encourage patient to continue focusing on work and planning for correction. - Follow up in 4 months. 06/05/2024 Insomnia due to other mental disorder (ICD-10 - F51.05) stable 06/05/2024 Madeline Lund, a patient with bipolar disorder and anxiety, presents for medication management and reports stable mood and anxiety symptoms. Bipolar Disorder Assessment: Patient reports stable mood with no current depressive or manic symptoms. Current medication regimen includes Vraylar 1.5 mg daily, lamotrigine 400 mg daily (200 mg tablets, 2 at bedtime), and bupropion XL 300 mg daily. Patient denies any side effects or concerns with the current medication regimen. Plan: - Continue Vraylar 1.5 mg PO daily - Continue lamotrigine 400 mg PO daily (200 mg tablets, 2 at bedtime) - Continue bupropion XL 300 mg PO daily - Follow up in 4 months Anxiety Assessment: Patient reports stable anxiety symptoms with current medication regimen. Current medications include escitalopram 20 mg daily and as-needed lorazepam. Patient reports minimal use of lorazepam, stating they have only used about 5 tablets from their last prescription. Plan: - Continue escitalopram 20 mg PO daily - Continue lorazepam as needed (PRN) - Follow up in 4 months the note is transcribed using speech recognition software. It is a reflection of a visit with the patient. It might have some inaccuracy, including medication names and transcribing errors, though efforts have been made to correct them. Plan Of Treatment Next Appt Details Provider Name:Remigio Marsh Eldayamile pool, 10/06/2024 02:45:00 PM, [address], [address], [place], [address], Insurance Providers Payer Name Payer Address Payer Phone Subscriber Number Group Number Insured Name Patient Relationship to Insured Coverage Start Date Coverage End Date [facility] [address] [place] [phone] [id number] CYNTHIA LUND Self - patient is the insured Medical (General) History Medical History History ICD Code Problems: Bipolar affective disorder, cu rrent episode mixed Generalized anxiety disorder 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
--- OUTSIDE RECORDS SUMMARY | 2024-07-12 08:37 | XMS_ITS | Clinical Summary ---
Author Organization [facility] Address [address] [place] [address] Care Team Providers Care Filter Operator Name Role Phone Anai Owens MD Primary Care Provider [phone] Allergies No known active allergies Medications LORazepam [...] 24 hr tablet Three tablets once daily 2 Active albuterol HFA (PROVENTIL HFA,VENTOLIN HFA,PROAIR HFA) 90 mcg/actuation inhaler 2 puffs every 4 (four) hours as needed 3 Active metoclopramide (REGLAN) 10 mg tablet Take 1 tablet (10 mg total) by mouth daily as needed (nausea) Active cyanocobalamin (Vitamin B-12) 1,000 mcg tabletIndicati ons:Prevention of Vitamin B12 Deficiency Take 1 tablet (1,000 mcg total) by mouth daily 90 tablet 3 4 Active cholecalcifero l (VITAMIN D-3) 2000 unit tablet Take 1 tablet (2,000 Units total) by mouth daily 90 tablet 3 4 Active polyethylene glycol (MIRALAX) 17 gram/dose bulk powder Take 1 capful every evening. 595 g 3 4 Active famotidine (PEPCID) 20 mg tablet Take 1 tablet (20 mg total) by mouth nightly 90 tablet 3 4 10/24/19 25 Active meclizine (ANTIVERT) 25 mg tabletIndicati ons:Labyrinthi tis of both ears,Eustachia n tube dysfunction, bilateral Take 1 tablet (25 mg total) by mouth 3 (three) times a day as needed for dizziness Collaborating physician Hesham Gordillo MD 30 tablet 4 Active ALPRAZolam (XANAX) 0.5 mg tabletIndicati ons:Labyrinthi tis of both ears Take 0.5-1 tablets (0.25-0.5 mg total) by mouth 3 (three) times a day as needed (To help alleviate vertigo not relieved by meclizine alone) Collaborating physician Hesham Gordillo MD 10 tablet [address] (PROTONIX) 40 mg EC tablet Take 1 tablet (40 mg total) by mouth daily 90 tablet 3 5 Active Active Problems Problem Noted Date Diagnosed [...] - 06/26/2024 11:59 PM CDT Hospital Encounter [facility] [address] [place] [address] Other abnormal and inconclusive findings on diagnostic imaging of breast Discharge Disposition: Discharge to home or self care 06/26/2024 10:15 AM CDT - 06/26/2024 11:59 PM CDT Hospital Encounter [address] [address] Other abnormal and inconclusive findings on diagnostic imaging of breast Discharge Disposition: Discharge to home or self care 06/20/2024 12:11 PM CDT - 06/20/2024 11:59 PM CDT Hospital Encounter [facility] [address] [place] [address] Pleurodynia Discharge Disposition: Discharge to home or self care 06/07/2024 12:11 PM CDT - 06/07/2024 11:59 PM CDT Hospital Encounter [facility] [address] [place] [address] Encounter for screening mammogram for malignant neoplasm [...] 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 Other Medical Bipolar 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 Hx Other Medical 02-PSYCH Asthma Bipolar disorder [...] on file Legal Sex Female 11:55 PM LAYOUT FORMER Gender Identity Not on file Sexual Orientation Not on file Obstetrics History Para Term AB IAB SAB Ectopic Multiple Livin g Live Births 2 2 2 Date Outcome GA Total Labor Labor/2nd/3rd Weight Sex Type Anes PTL Ester A1 A5 Name Clin Term Term Last Filed Vital Signs Vital Sign Reading Time Taken Comments Blood Pressure 121/76 02/26/2024 8:44 PM LAYOUT FORMER Pulse 81 02/26/2024 8:44 PM LAYOUT FORMER Temperature 36.6 C (97.9 F) 02/26/2024 8:44 PM LAYOUT FORMER Respiratory Rate 16 02/26/2024 8:44 PM LAYOUT FORMER Oxygen Saturation 99% 02/26/2024 8:44 PM LAYOUT FORMER Inhaled Oxygen Concentration - - Weight 79.4 kg (175 lb) 02/26/2024 6:16 PM LAYOUT FORMER Height 160 cm (5' 3 ) 02/26/2024 6:16 PM LAYOUT FORMER Body Mass Index 31 02/26/2024 6:16 PM LAYOUT FORMER Plan of Treatment Health Maintenance Due Date [...] Completed 06/11/2006 Medical Devices Implanted Type Area Paper Coating Supervisor Device Identifier Shelf Expiration Date Model / [...] left breast, 10 cm from the nipple. Anai Owens MD [facility]ED[facility] Final R esult * Diagnostic [...] left breast, 10 cm from the nipple. Anai Owens MD IMG MAMMO PROCEDURES Final R [...] wedging is present. No acute fracture identified. Zdia-wj-jjvcvrpt multilevel thoracic degenerative disc disease. Right upper quadrant surgical clips and cervical degenerative disc disease with fusion and listhesis noted. Left ribs: No acute displaced left-sided rib fractures. Alignment is normal. No evidence of pulmonary contusion or pneumothorax. 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 No acute displaced left-sided rib fractures. THIS IS AN ELECTRONICALLY VERIFIED FINAL REPORT 06/22/2024 11:59 AM - Electronically signed by Anai Douglas M.D. MF: KIET Report ID: [id number] Reading Location: [id number] Procedure Note Anai Douglas MD - 06/22/2024 EXAM DESCRIPTION: XR SPINE THORACIC 3 VIEWS; XR RIBS LEFT 2 VIEWS REASON FOR STUDY: rib pain rib pain left Nki left lower posterior back pain FINDINGS: Three views thoracic spine and two views left ribs submitted withcomparison 02/25/2021. Thoracic spine: Moderate rotary dextroscoliosis of the thoracic spine is present.Midthoracic wedging is present. No acute fracture identified. Xexz-hd-znyqjbnm multilevel thoracic degenerative disc disease. Right upper quadrantsurgical clips and cervical degenerative disc disease with fusion and listhesisnoted. Left ribs: No acute displaced left-sided rib fractures. Alignment is normal. No evidence of pulmonary contusion or pneumothorax. 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 No acute displaced left-sided rib fractures. THIS IS AN ELECTRONICALLY VERIFIED FINAL REPORT 06/22/2024 11:59 AM - Electronically signed by Anai Douglas M.D. MF: KIET Report ID: [id number] Reading Location: [id number] us Anai Owens MD IMG XR PROCEDURES Final Resu [...] wedging is present. No acute fracture identified. Wlkl-bt-pniybioq multilevel thoracic degenerative disc disease. Right upper quadrant surgical clips and cervical degenerative disc disease with fusion and listhesis noted. Left ribs: No acute displaced left-sided rib fractures. Alignment is normal. No evidence of pulmonary contusion or pneumothorax. 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 No acute displaced left-sided rib fractures. THIS IS AN ELECTRONICALLY VERIFIED FINAL REPORT 06/22/2024 11:59 AM - Electronically signed by Anai Douglas M.D. MF: KIET Report ID: [id number] Reading Location: [id number] Procedure Note Anai Douglas MD - 06/22/2024 EXAM DESCRIPTION: XR SPINE THORACIC 3 VIEWS; XR RIBS LEFT 2 VIEWS REASON FOR STUDY: rib pain rib pain left Nki left lower posterior back pain FINDINGS: Three views thoracic spine and two views left ribs submitted withcomparison 02/25/2021. Thoracic spine: Moderate rotary dextroscoliosis of the thoracic spine is present.Midthoracic wedging is present. No acute fracture identified. Znwj-qg-rfgyevxh multilevel thoracic degenerative disc disease. Right upper quadrantsurgical clips and cervical degenerative disc disease with fusion and listhesisnoted. Left ribs: No acute displaced left-sided rib fractures. Alignment is normal. No evidence of pulmonary contusion or pneumothorax. 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 No acute displaced left-sided rib fractures. THIS IS AN ELECTRONICALLY VERIFIED FINAL REPORT 06/22/2024 11:59 AM - Electronically signed by Anai Douglas M.D. MF: KIET Report ID: [id number] Reading Location: [id number] Anai Owens MD IMG XR PROCEDURES Final Resu [...] Dipak Peñaloza M.D. RW: YASMIN Report ID: [id number] Reading Location: [id number] Procedure Note Dipak Peñaloza MD - 06/23/2024 [...] Dipak Peñaloza M.D. RW: YASMIN Report ID: [id number] Reading Location: [id number] us Anai Owens MD IMG XR PROCEDURES Final Resu [...] or will be contacted. Electronically signed by: Esteban Ballard 06/09/2024 9:03 AM CDT EXAMINATION: SCREENING MAMMOGRAM BILATERAL W KIRK ORDERING HEALTHCARE PROVIDER: ANAI OWENS HISTORY: Routine screening mammography. COMPARISON: New [...] or other suspicious findings in either breast. Anai Owens MD IMG MAMMO PROCEDURES Final R esult from Last 3 Months Insurance Advance Directives For more information, please contact: [phone] * Full Code (Latest Code Status on [...] 8:55 AM 01/18/2021 3:27 PM Care Teams Filter Operator Relationship Specialty Start Date End Date Anai Owens MD PCP - General 07/30/20
--- OUTSIDE RECORDS SUMMARY | 2024-07-12 08:37 | XMS_ITS | Referral Summary ---
Author Organization [facility] Address [address] [place] [address] Care Team Providers Care Hydrometeorologist Name Role Phone Anai Owens MD Primary Care Provider [phone] Encounters Date Type Department Care Team Description 06/26/2024 10:15 AM CDT - 06/26/2024 11:59 PM CDT Hospital Encounter [address] [address] Other abnormal and inconclusive findings on diagnostic imaging of breast Discharge Disposition: Discharge to home or self care 06/26/2024 10:20 AM CDT - 06/26/2024 11:59 PM CDT Hospital Encounter [address] [address] Other abnormal and inconclusive findings on diagnostic imaging of breast Discharge Disposition: Discharge to home or self care 06/20/2024 12:11 PM CDT - 06/20/2024 11:59 PM CDT Hospital Encounter [address] [address] Pleurodynia Discharge Disposition: Discharge to home or self care 06/07/2024 12:11 PM CDT - 06/07/2024 11:59 PM CDT Hospital Encounter [address] [address] Encounter for screening mammogram for malignant neoplasm [...] on file 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 Gender Identity Not on file Sexual Orientation Not on file Last Filed Vital Signs Vital Sign Reading Time Taken Comments Blood Pressure 121/76 02/26/2024 8:44 PM SPOILAGE WORKER Pulse 81 02/26/2024 8:44 PM SPOILAGE WORKER Temperature 36.6 C (97.9 F) 02/26/2024 8:44 PM SPOILAGE WORKER Respiratory Rate 16 02/26/2024 8:44 PM SPOILAGE WORKER Oxygen Saturation 99% 02/26/2024 8:44 PM SPOILAGE WORKER Inhaled Oxygen Concentration - - Weight 79.4 kg (175 lb) 02/26/2024 6:16 PM SPOILAGE WORKER Height 160 cm (5' 3 ) 02/26/2024 6:16 PM SPOILAGE WORKER Body Mass Index 31 02/26/2024 6:16 PM SPOILAGE WORKER Plan of Treatment Not on file Medical Devices Implanted Type Area Youth Accommodation Support Worker Device Identifier Shelf Expiration Date Model / [...] breast, 10 cm from the nipple. us Anai Owens MD IMG MAMMO PROCEDURES Final [...] breast, 10 cm from the nipple. us Anai Owens MD IMG MAMMO PROCEDURES Final [...] wedging is present. No acute fracture identified. Xqzm-fo-sjhemhtj multilevel thoracic degenerative disc disease. Right upper quadrant surgical clips and cervical degenerative disc disease with fusion and listhesis noted. Left ribs: No acute displaced left-sided rib fractures. Alignment is normal. No evidence of pulmonary contusion or pneumothorax. 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 No acute displaced left-sided rib fractures. THIS IS AN ELECTRONICALLY VERIFIED FINAL REPORT 06/22/2024 11:59 AM - Electronically signed by Anai Douglas M.D. MF: KIET Report ID: [id number] Reading Location: [place] [address] Procedure Note Anai Douglas MD - 06/22/2024 [...] wedging is present. No acute fracture identified. Dmhk-yw-khcjmggb multilevel thoracic degenerative disc disease. Right upper quadrantsurgical clips and cervical degenerative disc disease with fusion and listhesisnoted. Left ribs: No acute displaced left-sided rib fractures. Alignment is normal. No evidence of pulmonary contusion or pneumothorax. 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 No acute displaced left-sided rib fractures. THIS IS AN ELECTRONICALLY VERIFIED FINAL REPORT 06/22/2024 11:59 AM - Electronically signed by Anai Douglas M.D. MF: KIET Report ID: [id number] Reading Location: [place] [address] us Anai Owens MD IMG XR PROCEDURES [...] wedging is present. No acute fracture identified. Qjlv-am-qsunnqjj multilevel thoracic degenerative disc disease. Right upper quadrant surgical clips and cervical degenerative disc disease with fusion and listhesis noted. Left ribs: No acute displaced left-sided rib fractures. Alignment is normal. No evidence of pulmonary contusion or pneumothorax. 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 No acute displaced left-sided rib fractures. THIS IS AN ELECTRONICALLY VERIFIED FINAL REPORT 06/22/2024 11:59 AM - Electronically signed by Anai Douglas M.D. MF: KIET Report ID: [id number] Reading Location: [id number] Procedure Note Anai Douglas MD - 06/22/2024 [...] wedging is present. No acute fracture identified. Kbsa-sz-yrrmtmpv multilevel thoracic degenerative disc disease. Right upper quadrantsurgical clips and cervical degenerative disc disease with fusion and listhesisnoted. Left ribs: No acute displaced left-sided rib fractures. Alignment is normal. No evidence of pulmonary contusion or pneumothorax. 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 No acute displaced left-sided rib fractures. THIS IS AN ELECTRONICALLY VERIFIED FINAL REPORT 06/22/2024 11:59 AM - Electronically signed by Anai Douglas M.D. MF: KIET Report ID: [id number] Reading Location: [id number] us Anai Owens MD IMG XR PROCEDURES [...] Electronically signed by Dipak Peñaloza M.D. RW: YASIMN Report ID: [id number] Reading Location: [id number] Procedure Note Dipak Peñaloza MD - 06/23/2024 [...] Dipak Peñaloza M.D. RW: YASMIN Report ID: [id number] Reading Location: [id number] us Anai Owens MD IMG XR PROCEDURES [...] other suspicious findings in either breast. us Anai Owens MD IMG MAMMO PROCEDURES Final R esult from Last 3 Months Insurance [place] [id number] [place] [id number] Advance Directives For more information, please contact: [phone] * Full Code (Latest Code Status on [...] 8:55 AM 01/18/2021 3:27 PM Care Teams Hydrometeorologist Relationship Specialty Start Date End Date Anai Owens MD PCP - General 07/30/20
[2024-07-12 08:38] VITALS: BP 127/86; PULSE 92; RESP 20; TEMP 36.7; O2SAT 98
--- NOTE | 2024-07-12 08:54 | ED.GENADULT ---
HPI - General Adult General Chief complaint: Back Pain/Injury Stated complaint: back pain, muscle spasms Source: patient Mode of arrival: ambulatory Limitations: no limitations History of Present Illness HPI narrative: Patient presents for evaluation of back pain for the last few months. She was evaluated here on 06/19 and 06 28 for the same complaint. She has also seen her primary care provider who did x-rays of her ribs and spine that she states showed arthritic changes. She has been given prescriptions for prednisone, Vicodin, Flexeril, and Robaxin. She has also applied lidocaine patches. She has seen a chiropractor and has also had massage therapy. She states that the only thing that seems to help is steroids. She has an upcoming appt with her primary care provider. she currently rates her pain is 8/10 in severity. Related Data Home Medications Medication Instructions Recorded Confirmed Last Taken Type cariprazine 1.5 mg capsule 1.5 mg PO DAILY 12/26/23 12/26/23 Unknown History (Vraylar) pantoprazole 40 mg tablet,delayed 40 mg PO DAILY 12/26/23 12/26/23 Unknown History release bupropion HCl 150 mg 24 hr tablet, mg PO 06/28/24 Unknown History extended release bupropion HCl 300 mg 24 hr tablet, mg PO 06/28/24 Unknown History extended release escitalopram oxalate 20 mg tablet mg 06/28/24 Unknown History famotidine 20 mg tablet mg 06/28/24 Unknown History Allergies Allergy/AdvReac Type Severity Reaction Status Date / Time No Known Allergies Allergy Unknown Verified 06/28/24 08:22 Review of Systems Review of Systems: CONSTITUTIONAL: Denies fever, chills, or sweats. EYES: Denies visual changes, redness, or discharge. ENT: Denies rhinorrhea, congestion, sore throat, or otalgia. CARDIOVASCULAR: Denies chest pain, palpitations, or edema. RESPIRATORY: Denies cough or dyspnea. GASTROINTESTINAL: Denies abdominal pain, nausea, vomiting, or diarrhea. GENITOURINARY: Denies dysuria or hematuria. SKIN: Denies rash or itching. MUSCULOSKELETAL: Reports back pain. Denies joint pain, or myalgia. NEUROLOGIC: Denies headache, numbness, dizziness, or weakness. PSYCHIATRIC: Denies anxiety or depression. COUNT INCLUDES THE [facility] Past Medical History Medical History GERD (gastroesophageal reflux disease) Anxiety and depression COPD (chronic obstructive pulmonary disease) Ankle fracture, right Bipolar disorder Surgical History Surgical History H/O: hysterectomy H/O repair of right rotator cuff H/O cervical spine surgery History of ankle surgery RT ankle History of cholecystectomy History of adenoidectomy History of tonsillectomy Family History Family History Mother Family history non-contributory Social History Social History Smoking status: Never smoker Occupation/Education: occupation Gender identity (if verbalized by the patient): Female Exam Narrative: GENERAL: Well-appearing, well-nourished, and in no acute distress. HEAD: Normocephalic, atraumatic. EYES: PERRLA and EOMI. ENT: Nares clear, no rhinorrhea or epistaxis. Mucous membranes moist. Oropharynx without tonsillar hypertrophy exudate or other lesions. Bilateral TMs pearly omalley nonbulging NECK: Supple. No adenopathy or masses. No carotid bruits or JVD CHEST: Clear to auscultation. No respiratory distress. No wheezes rales or rhonchi HEART: Regular rate and rhythm. No murmur heard. Normal peripheral pulses. ABDOMEN: Soft, nontender, nondistended, normal active bowel sounds. EXTREMITIES: Normal range of motion. No edema. BACK: There is tenderness in the midline of the thoracic spine SKIN: Warm, dry, no rash. NEURO: No focal deficits. Alert and oriented x3. PSYCH: Normal mood and affect. Course Course Emergency Course: This is a 63-year-old female who presented for evaluation of back pain. She has already had imaging and is simply requesting a script for steroids, as they have been effective in the past. Will dc with Foap ABrol dos jeremias. Follow up with primary next week. Go to the ER for worsening symptoms. Pt in agreement with plan of care. Level of Care: Express Care Visit Vital Signs Vital signs: Vital Signs Temperature 36.7 C 07/12/24 08:38 Pulse Rate 92 05/17/25 08:38 Respiratory Rate 20 07/12/24 08:38 Blood Pressure 127/86 07/12/24 08:38 Pulse Oximetry 98 07/12/24 08:38 Oxygen Delivery Room Air 07/12/24 08:38 Temperature 36.7 C 07/12/24 08:38 Pulse Rate 92 07/12/24 08:38 Respiratory Rate 20 07/12/24 08:38 Blood Pressure 127/86 07/12/24 08:38 Pulse Oximetry 98 07/12/24 08:38 Oxygen Delivery Room Air 07/12/24 08:38 Medical Decision Making Vital Signs Vital Signs: Vital Signs Temperature 36.7 C 07/12/24 08:38 Pulse Rate 92 07/12/24 08:38 Respiratory Rate 20 07/12/24 08:38 Blood Pressure 127/86 07/12/24 08:38 Pulse Oximetry 98 07/12/24 08:38 Oxygen Delivery Room Air 07/12/24 08:38 Temperature 36.7 C 07/12/24 08:38 Pulse Rate 92 07/12/24 08:38 Respiratory Rate 20 07/12/24 08:38 Blood Pressure 127/86 07/12/24 08:38 Pulse Oximetry 98 07/12/24 08:38 Oxygen Delivery Room Air 07/12/24 08:38 Discharge Plan Discharge Clinical Impression: Myofascial pain syndrome of thoracic spine Patient Disposition: Home Condition: Stable Instructions: Antibiotic Form, Back Pain (ED) Patient Language: Mohawk Prescriptions: New methylprednisolone [Medrol (Jeremias)] 4 mg tablets,dose pack See Rx Instructions .ROUTE .COMPLEX Qty: 21 0RF Rx Instructions: for 6 days No Action Vraylar 1.5 mg capsule 1.5 mg PO DAILY pantoprazole 40 mg tablet,delayed release (DR/EC) 40 mg PO DAILY famotidine 20 mg tablet escitalopram oxalate 20 mg tablet bupropion HCl 300 mg tablet extended release 24 hr PO bupropion HCl 150 mg tablet extended release 24 hr PO methocarbamol 750 mg tablet 750 mg PO TID PRN (Reason: muscle spasms) Qty: 12 0RF lidocaine 5 % adhesive patch,medicated 1 patch topical DAILY Qty: 15 0RF Rx Instructions: leave on most painful area for up to 12 hrs diclofenac sodium 1 % gel 4 g topical QID Qty: 50 0RF Rx Instructions: apply to the affected area only. Follow-up/Referrals: Roman,MD Kane [Primary Care Provider] - Time of Disposition: 08:50
== END 2024-07-12 08:55 | disposition home or self-care (01) ==
PROVIDERS: Emergency Provider Nurse Practitioner; PCP Internal Medicine
DX: M54.6 Pain in thoracic spine (principal); K21.9 Gastro-esophageal reflux disease without esophagitis; J44.9 Chronic obstructive pulmonary disease, unspecified; F31.9 Bipolar disorder, unspecified
CPT/HCPCS: 99213; G0463